=== PATIENT | male | born 1940 | race Caucasian/White ===

== ENCOUNTER 2023-12-18 08:04 | Outpatient (OUT) | payer MEDICARE, OTHER, SELFPAY ==
--- NOTE | 2023-12-18 08:08 | US_ITS ---
The [address] [address] Patient Name: TOMAS REYNOSO MRN: [id number] date: 1940 Sex: M Assigned Patient Location: US Current Patient Location: Accession/Order Number: [id number] Exam Date: 12/18/2023 08:30 Report Date: 12/18/2023 09:14 At the request of: LESLEE KRUSE Procedure: US renal BI EXAMINATION: US renal BI HISTORY: Microscopic Hematuria R31.29, Feeling Of Incomplete Bladder COMPARISON: No relevant comparison available. TECHNIQUE: Ultrasound examination was performed of the bladder. FINDINGS: Right Kidney: Normal in size, contour and cortical echotexture. The cortex measures 1.4 cm. No solid cortical mass, hydronephrosis or obstructing nephrolithiasis Height: 4.8 cm Length: 11.1 cm Width: 4.4 cm Left Kidney: Normal in size, contour and cortical echotexture. The cortex measures 1.5 cm. No solid cortical mass, hydronephrosis or obstructing nephrolithiasis. Area of anechoic echogenicity in the lower pole measuring 1.8 cm, parapelvic cyst is favored Height: 5.8 cm Length: 10.6 cm Width: 5.2 cm Urinary bladder is normal measuring 7.6 x 5.8 x 6.2 cm a volume of 194 mL Post void imaging was not performed US/US renal BI IMPRESSION: No explanation for the patient's hematuria Electronically authenticated by: JUSTUS MARLEY Date: 12/18/2023 09:14
== END 2023-12-18 08:05 | disposition home or self-care (01) ==
LOC: US 08:04
PROVIDERS: Visit Provider Urology
DX: R31.29 Other microscopic hematuria (principal); R39.14 Feeling of incomplete bladder emptying
CPT/HCPCS: 76775

== ENCOUNTER 2024-01-19 07:00 | Day surgery (SDC) | payer MEDICARE, OTHER, SELFPAY ==
--- OUTSIDE RECORDS SUMMARY | 2024-01-17 11:19 | XMS_ITS | CCD ---
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 Name Role Phone BERENGER, ENEDELIA G Unavailable Unavailable BERENGER, ENEDELIA G Unavailable Unavailable BERENGER, ENEDELIA G Unavailable Unavailable BERENGER, ENEDELIA G Unavailable Unavailable BERENGER, ENEDELIA G Unavailable Unavailable HEGEMIER, MICAELA (PA) Unavailable Unavailable BERENGER, ENEDELIA G Unavailable Unavailable HEGEMIER, MICAELA (PA) Unavailable Unavailable MISC, DR HARRINGTON Attending Unavailable MISC, DR HARRINGTON Admitting Unavailable MISC, DR HARRINGTON Consulting Unavailable ROSSVETLANA MUELLER Consulting Unavailable SVETLANA DIMAS Attending Unavailable SVETLANA DIMAS Admitting Unavailable DANAE, LEONARDA G Primary Care Physician Unavailab CARMITA Strong Attending Unavailable DANAE, LEONARDA G Referring Unavailable DANAE, LEONARDA G Attending Unavailable NICK MCCOY Attending Unavailable Danae DO, Leonarda G Primary Care Provider [phone] DEMARCO REBOLLEDO. Attending Unavailable BOWEN GARAY Referring Unavailable DANAE, LEONARDA G Primary Care Unavailable ANUSHA HDEZ Attending Unavailable ANUSHA HDEZ Referring Unavailable DAANE, LEONARDA G Primary Care Unavailable ANUSHA HDEZ Attending Unavailable DEMARCO REBOLLEDO Referring Unavailable DANAE, LEONARDA G Primary Care Unavailable DANAE, LEONARDA Primary Care Unavailable Piter KRUSE Attending Unavailable DANAE, LEONARDA Primary Care Unavailable Piter KRUSE Attending Unavailable Piter KRUSE Attending Unavailable DANAE, LEONARDA Primary Care Unavailable Allergies Allergy Classification Reported Allergen(s) Allergy Type Date of Onset Reaction(s) Facility (4 sources) Dust; Translations: [Dust] Drug allergy Unknown (qualifier value) [facility] Jus (4 sources) Seasonal allergy; Translations: [Seasonal] Drug allergy Sneezing (finding) [facility] Cheri (7 sources) atorvastatin; Translations: [ATORVASTATIN] Drug Allergy 10-30-2021 [facility] Medications Current Medications Medication Drug Class(es) Dates Sig (Normalized) Sig (Original) 8 hr acetaminophen 650 mg extended release oral tablet (8 sources) Start: 02-19-2021 take 1 mg by mouth every eight hours Tylenol 8 Hour Caplet 650 mg oral tablet, extended release mg tab(s), Oral, q8hr, Refills(s) 0 Start Date: 02/19/21 Status: Ordered acetaminophen 325 mg / HYDROcodone bitartrate 7.5 mg oral tablet (5 sources) Opioid Agonist Start: 02-26-2022 take 1 tablet by mouth once Locust 325 mg-7.5 mg oral tablet 1 tab(s), Oral, Once, 1 tab(s), Refill(s) 0, Take 1 hour prior to procedure, [facility], 180, cm, 01/29/22 12:53:00 EST, Height/Length Dosing, 95, kg, 12/31/21 13:10:00 EST, Weight Dosing Start Date: 02/26/22 Status: Ordered [id number] 200 actuat albuterol 0.09 mg/actuat metered dose inhaler (5 sources) beta2-Adrenergic Agonist Start: 12-18-2023 take 2 puff(s) by inhalation every six hours as needed for wheezing albuterol (PROVENTIL HFA;VENTOLIN HFA) 90 mcg/actuation inhaler Indications: SOB (shortness of breath) Inhale 2 puffs every 6 (six) hours as needed for wheezing. 18 g 11 12/18/2023 Active Start: 06-03-2023 End: 12-18-2023 albuterol (PROVENTIL,VENTOLI N) nebulizer solution 2.5 mg ascorbic acid 250 mg chewable tablet (4 sources) Vitamin C ascorbic acid, v itamin C, 250 mg tablet,chewable Chew and swallow. 0 Active aspirin 81 mg delayed release oral tablet (4 sources) Platelet Aggregation Inhibitor, Nonsteroidal Anti-inflammatory Drug take 1 tablet by mouth in the morning aspirin 81 mg Take 1 tablet (81 mg total) by mouth in the morning. 30 tablet 11 Active cholecalciferol 0.125 mg oral capsule (4 sources) Vitamin D take 1 capsule by mouth in the morning cholecalciferol, vitamin D3, (VITAMIN D3) 5,000 units capsule Take 1 capsule (5,000 Units total) by mouth in the morning. 0 Active doxycycline hyclate 100 mg oral tablet (3 sources) Tetracycline-class Drug Start: End: 022 take 1 tablet by mouth twice daily doxycycline hyclate 100 mg Tab 100 mg = 1 tab(s), Oral, BID, X 14 day(s), # 28 tab(s), Refills(s) 0, Pharmacy: [facility], 180, cm, 04/19/22 11:19:00 EDT, Height/Length Dosing, 95, kg, 04/19/22 11:18:00 EDT, Weight Dosing Start Date: 05/23/22 Stop Date: 06/06/22 Status: Ordered Start: 04-19-2022 take 1 capsule by mo [facility] twice daily doxycycline hyclate 100 mg Cap 100 mg = 1 cap(s), Oral, BID, # 28 cap(s), Refills(s) 0, Pharmacy: [facility], 180, cm, 04/19/22 11:19:00 EDT, Height/Length Dosing, 95, kg, 04/19/22 11:18:00 EDT, Weight Dosing Start Date: 04/19/22 Status: Ordered finasteride 5 mg oral tablet (5 sources) 5-alpha Reductase Inhibitor Start: 04-11-2022 take 1 tablet by mouth once daily finasteride 5 mg Tab 5 mg = 1 tab(s), Oral, Daily, # 90 tab(s), Refills(s) 3, Pharmacy: [facility], 180, cm, 03/14/22 13:53:00 EDT, Height/Length Dosing, 95, kg, 12/31/21 13:10:00 EST, Weight Dosing Start Date: 04/11/22 Status: Ordered Start: 03-12-2022 take 1 tablet by chet th once daily finasteride 5 mg Tab 5 mg = 1 tab(s), Oral, Daily, # 90 tab(s), Refills(s) 3, Pharmacy: [facility], 180, cm, 01/29/22 12:53:00 EST, Height/Length Dosing, 95, kg, 12/31/21 13:10:00 EST, Weight Dosing Start Date: 03/12/22 Status: Ordered 30 actuat fluticasone furoate 0.1 mg/actuat / umeclidinium 0.0625 mg/actuat / vilanterol 0.025 mg/actuat dry powder inhaler (1 source) Anticholinergic, Corticosteroid, beta2-Adrenergic Agonist Start: 12-18-2023 take 1 puff(s) by inhalation once daily vbwgtczijke-fkdiqonde-pxcoytfk (TRELEGY ELLIPTA) 100-62.5-25 mcg blister with device Indications: SOB (shortness of breath) Inhale 1 puff once daily. 28 each 1 12/18/2023 Active folic acid 1 mg oral tablet (12 sources) Start: 09-08-2019 take 1 tablet by mouth in the morning folic acid (FOLVITE) 1 mg tablet Take 1 tablet (1,000 mcg total) by mouth in the morning. 5 09/08/2019 Active hydroxychloroqu ine sulfate 200 mg oral tablet (6 sources) Antimalarial, Antirheumatic Agent Start: 12-09-2022 hydroxychloroquine 200 mg Ta b Refills(s) 0 Start Date: 12/09/22 Status: Ordered 24 hr isosorbide mononitrate 30 mg extended release oral tablet (6 sources) Nitrate Vasodilator Start: 12-09-2022 take 1 tablet by mouth once daily isosorbide mononitrate (IMDUR) 30 mg 24 hr tablet Take 1 tablet (30 mg total) by mouth daily. 90 tablet 0 10/28/2023 Active levothyroxine sodium 0.075 mg oral tablet (12 sources) l-Thyroxine Start: 02-19-2021 take 1 tablet by mouth once daily levothyroxine 75 mcg (0.075 mg) Tab mcg tab(s), Oral, Daily, Refills(s) 0 Start Date: 02/19/21 Status: Ordered Start: 03-29-2021 take 1 tablet by chet th once daily levothyroxine 75 mcg (0.075 mg) Tab mcg tab(s), Oral, Daily, Refills(s) 0 Start Date: 02/19/21 Status: Ordered Start: 08-05-2017 take 1 tablet by chet th in the morning levothyroxine (SYNTHROID, LEVOTHROID) 75 MCG tablet Take 1 tablet (75 mcg total) by mouth in the morning. 0 08/05/2017 Active Claritin (8 sources) Start: 02-19-2021 Claritin Daily, Refills(s) 0 Start Date: 02/19/21 Status: Ordered methotrexate 2.5 mg oral tablet (8 sources) Folate Analog Metabolic Inhibitor Start: 02-19-2021 methotrexate 2.5 mg Tab 2.5 mg = 1 tab(s), Oral, q7day, # 4 tab(s), Refills(s) 0 Start Date: 02/19/21 Status: Ordered 24 hr metoprolol succinate 25 mg extended release oral tablet (6 sources) beta-Adrenergic Gosia Start: 04-29-2023 take 1 tablet by mouth every twenty-four hours in the morning metoprolol succinate XL (TOPROL XL) 25 mg 24 hr tablet Indications: Atherosclerosis of [place] coronary artery of [place] heart without angina pectoris TAKE 1 TABLET BY MOUTH IN THE MORNING 90 tablet 3 04/29/2023 Active Start: 12-09-2022 take 1 mg by mouth once daily metoprolol 25 mg ER Tab mg tab(s), Oral, Daily, Refills(s) 0 Start Date: 12/09/22 Status: Ordered 24 hr mirabegron 25 mg extended release oral tablet (5 sources) beta3-Adrenergic Agonist Start: 12-09-2022 take 1 tablet by mouth every twenty-four hours in the morning, then take 1 tablet by mouth once daily MYRBETRIQ 25 mg tablet extended release 24 hr Take 1 tablet (25 mg total) by mouth in the morning. TAKE 1 TABLET BY MOUTH ONCE DAILY FOR 30 DAYS. 0 12/09/2022 Active Start: 12-09-2022 End: 05-08-2023 take 1 tablet by mouth once daily Myrbetriq 25 mg oral tablet, extended release 25 mg = 1 tab(s), Oral, Daily, X 30 day(s), # 30 tab(s), Refills(s) 4, Pharmacy: [facility], 180, cm, 12/09/22 11:37:00 EST, Height/Length Dosing, 102, kg, 12/09/22 11:37:00 EST, Weight Dosing Start Date: 12/09/22 Stop Date: 05/08/23 Status: Ordered montelukast 10 mg oral tablet (12 sources) Leukotriene Receptor Antagonist Start: 02-19-2021 take 1 mg by mouth once daily montelukast 10 mg Tab mg tab(s), Oral, Daily, Refills(s) 0 Start Date: 02/19/21 Status: Ordered omeprazole 40 mg delayed release oral capsule (9 sources) Proton Pump Inhibitor Start: 02-19-2021 take 1 mg by mouth once daily omeprazole 40 mg Cap-DR mg cap(s), Oral, Daily, Refills(s) 0 Start Date: 02/19/21 Status: Ordered take 1 capsule by mouth twice da jared omeprazole (PriLOSEC) 20 mg capsule Take 1 capsule (20 mg total) by mouth 2 (two) times daily at 0800 and 1500. 0 Active omeprazole 40 mg Cap-DR (3 sources) Start: 02-19-2021 take 1 mg by mouth once daily omeprazole 40 mg Cap-DR mg cap(s), Oral, Daily, Refills(s) 0 Start Date: 02/19/21 Status: Ordered predniSONE 5 mg oral tablet (8 sources) Start: 02-19-2021 take 1 mg by mouth once daily predniSONE 5 mg Tab mg tab(s), Oral, Daily, Refills(s) 0 Start Date: 02/19/21 Status: Ordered rosuvastatin calcium 10 mg oral tablet (6 sources) HMG-CoA Reductase Inhibitor Start: 12-09-2022 take 1 tablet by mouth in the morning rosuvastatin (CRESTOR) 10 mg tablet Indications: Hyperlipidemia, unspecified hyperlipidemia type TAKE 1 TABLET BY MOUTH IN THE MORNING 90 tablet 3 04/29/2023 Active tamsulosin hydrochloride 0.4 mg oral capsule (12 sources) alpha-Adrenergic Gosia Start: 03-14-2023 End: 03-08-2024 take 1 capsule by mouth twice daily Flomax 0.4 mg Cap 0.4 mg = 1 cap(s), Oral, BID, X 90 day(s), # 180 cap(s), Refills(s) 3, Pharmacy: [facility], 180, cm, 03/14/23 9:03:00 EDT, Height/Length Dosing, 102, kg, 03/14/23 9:03:00 EDT, Weight Dosing Start Date: 03/14/23 Stop Date: 03/08/24 Status: Ordered Start: 04-11-2022 take 1 capsule by mo uth twice daily Flomax 0.4 mg Cap 0.4 mg = 1 cap(s), Oral, BID, # 180 cap(s), Refills(s) 3, Pharmacy: [facility], 180, cm, 03/14/22 13:53:00 EDT, Height/Length Dosing, 95, kg, 12/31/21 13:10:00 EST, Weight Dosing Start Date: 04/11/22 Status: Ordered Start: 02-26-2022 take 1 capsule by mo uth twice daily Flomax 0.4 mg Cap 0.4 mg = 1 cap(s), Oral, BID, # 180 cap(s), Refills(s) 3, Pharmacy: [facility], 180, cm, 01/29/22 12:53:00 EST, Height/Length Dosing, 95, kg, 12/31/21 13:10:00 EST, Weight Dosing Start Date: 02/26/22 Status: Ordered Start: 02-18-2020 take 1 capsule by mo uth once daily tamsulosin (FLOMAX) 0.4 mg capsule Take 1 capsule (0.4 mg total) by mouth nightly. 30 capsule 11 02/18/2020 Active Vitamin C 1000 mg oral tablet (8 sources) Start: 02-19-2021 take 1 mg by mouth once daily Vitamin C 1000 mg oral tablet mg tab(s), Oral, Daily, Refills(s) 0 Start Date: 02/19/21 Status: Ordered Vitamin D3 (8 sources) Start: 02-19-2021 Vitamin D3 Ref ills(s) 0 Start Date: 02/19/21 Status: Ordered zinc gluconate 50 mg oral tablet (8 sources) Start: 02-19-2021 zinc gluconate 50 mg oral tablet Refills(s) 0 Start Date: 02/19/21 Status: Ordered Completed/Discontinued Medications Medication Drug Class(es) Dates Sig (Normalized) Sig (Original) ciprofloxacin 500 mg oral tablet (1 source) Quinolone Antimicrobial Start: 12-08-2023 take 1 tablet by mouth once daily Cipro 500 mg Tab 500 mg = 1 tab(s), Oral, Daily, take one tab day before procedure and one tab after procedure, # 2 tab(s), Refills(s) 0, Pharmacy: [facility], 180, cm, 12/08/23 15:20:00 EST, Height/Length Dosing, 100, kg, 12/08/23 15:20:00 EST, Weight Dosing Start Date: 12/08/23 Status: Ordered MULTIVIT WITH MINERALS/LUTEIN (MULTIVITAMIN 50 PLUS ORAL) (4 sources) End: 12-18-2023 MULTIVIT WITH MINERALS/LUTEIN (MULTIVITAMIN 50 PLUS ORAL) Take by mouth. 0 12/18/2023 Discontinued MULTIVIT WITH NE NERALS/LUTEIN (MULTIVITAMIN 50 PLUS ORAL) Take by mouth. 0 Active Problems Active Problems Problem Classification Problem Date Documented Date Episodic/Chronic Abdominal pain (5 sources) Left lower quadrant pain; Translations: [Left lower quadrant pain] Onset: 04-19-2022 Episodic Aortic; peripheral; and visceral artery aneurysms (5 sources) Aneurysm of ascending aorta; Translations: [Aneurysm of ascending aorta without rupture (CMS-HCC)] Onset: 12-05-2022 11-26-2023 Chronic Chronic obstructive pulmonary disease and bronchiectasis (8 sources) Pulmonary emphysema 02-19-2021 Chronic Coronary atherosclerosis and other heart disease (4 sources) Coronary arteriosclerosis; Translations: [Atherosclerotic heart disease of [place] coronary artery without angina pectoris] Onset: 10-24-2022 12-18-2022 Chronic Disorders of lipid metabolism (12 sources) Hypercholesterolemia; Translations: [Mixed hyperlipidemia] Onset: 01-07-2023 02-19-2021 Chronic Essential hypertension (4 sources) Essential hypertension; Translations: [Essential (primary) hypertension] Onset: 01-07-2023 01-07-2023 Chronic Hyperplasia of prostate (16 sources) Benign prostatic hypertrophy with outflow obstruction; Translations: [Benign prostatic hyperplasia with lower urinary tract symptoms] Onset: 02-18-2020 12-31-2021 Chronic Inflammatory conditions of male genital organs (4 sources) Prostatitis; Translations: [Inflammatory disease of prostate, unspecified] Onset: 04-19-2022 Episodic Osteoarthritis (8 sources) Arthritis 02-19-2021 Chronic Other acquired deformities (1 source) Scoliosis, unspecified; Translations: [Scoliosis, unspecified] Onset: 06-20-2017 Chronic Other diseases of bladder and urethra (1 source) Overactive bladder 03-14-2023 Chronic Other diseases of kidney and ureters (2 sources) Urinary tract obstruction; Translations: [Other obstructive and reflux uropathy] Onset: 03-19-2022 Episodic Other lower respiratory disease (1 source) Interstitial pulmonary disease, unspecified; Translations: [Interstitial pulmonary disease, unspecified] Onset: 01-03-2022 Chronic Other lower respiratory disease (2 sources) Dyspnea; Translations: [Shortness of breath] 11-28-2023 Episodic Other lower respiratory disease (1 source) Shortness of breath; Translations: [Shortness of breath] Onset: 12-18-2023 Episodic Other lower respiratory disease (1 source) Shortness of breath Onset: 12-18-2023 Episodic Other male genital disorders (2 sources) Male erectile dysfunction, unspecified; Translations: [Erectile dysfunction] Onset: 12-08-2023 Chronic Other nervous system disorders (1 source) Other chronic pain; Translations: [Other chronic pain] Onset: 04-30-2017 Chronic Other screening for suspected conditions (not mental disorders or infectious disease) (14 sources) Patient encounter status; Translations: [Encounter for screening for malignant neoplasm of prostate] Onset: 02-18-2020 Resolved: 01-07-2023 02-18-2020 Episodic Other skin disorders (2 sources) Skin lesion 08-18-2022 Episodic Residual codes; unclassified (5 sources) Obstructive sleep apnea syndrome; Translations: [Obstructive sleep apnea (adult) (pediatric)] Onset: 01-03-2022 01-03-2022 Chronic Residual codes; unclassified (1 source) Obstructive sleep apnea (adult) (pediatric); Translations: [Obstructive sleep apnea (adult) (pediatric)] Onset: 01-03-2022 Chronic Thyroid disorders (8 sources) Hyperthyroidism 02-19-2021 Chronic Unclassified (3 sources) CONTACT W/AND (SUSP) EXPOS COVID-19; Translations: [CONTACT W/AND (SUSP) EXPOS COVID-19] Onset: 12-24-2021 Unclassified (8 sources) Finding of sensation of bladder 12-31-2021 Unclassified (1 source) Aneurysm of the ascending aorta, without rupture; Translations: [Aneurysm of the ascending aorta, without rupture] Onset: 12-05-2022 Past or Other Problems Problem Classification Problem Date Documented Da te Episodic/Chronic Abdominal hernia (4 sources) Hiatal hernia; Translations: [Diaphragmatic hernia without obstruction or gangrene] Onset: 12-05-2022 12-05-2022 Episodic Genitourinary symptoms and ill-defined conditions (13 sources) Nocturia; Translations: [Nocturia] Onset: 03-31-2020 Episodic Other lower respiratory disease (5 sources) Interstitial lung disease; Translations: [Interstitial pulmonary disease, unspecified] Onset: 01-03-2022 Resolved: 12-18-2023 01-03-2022 Chronic Other lower respiratory disease (4 sources) Dyspnea on exertion; Translations: [Other forms of dyspnea] Onset: 07-11-2022 07-11-2022 Episodic Spondylosis; intervertebral disc disorders; other back problems (1 source) Low back pain; Translations: [Low back pain] Onset: 04-30-2017 Episodic Unclassified (1 source) CONTACT W/AND (SUSP) EXPOS COVID-19; Translations: [CONTACT W/AND (SUSP) EXPOS COVID-19] Onset: 12-20-2021 Results Test Name Value Interpretation Reference Range Facility CBC (INCLUDES DIFF/PLT)on Basophils (Bld) [#/Vol] 0.079 10*3/uL Normal 0-200 [facility] Comment on above: Performed By: #### [id number], [id number] #### [facility] [address] [place] [phone] Percher: Preston E Cotes Basophils/100 WBC (Bld) 1.1 % Normal [facility] Comment on above: Performed By: #### [id number], [id number] #### [facility] [address] [place] [id number] Percher: Preston E Cotes Eosinophils (Bld) [#/Vol] 0.266 10*3/uL Normal 15-500 [facility] Comment on above: Performed By: #### 7861, 78446 #### [facility] [address] Percher: Preston E Cotes Eosinophils/100 WBC (Bld) 3.7 % Normal [facility] Comment on above: Performed By: #### [id number], 56536 #### [facility] [address] Percher: Preston E Cotes Erythrocyte distribution width (RBC) [Ratio] 13.0 % Normal 11.0-15.0 [facility] Comment on above: Performed By: #### [id number], 70951 #### [facility] [place] [address] Percher: Preston E Cotes Hematocrit (Bld) [Volume fraction] 44.3 % Normal 38.5-50.0 [facility] Comment on above: Performed By: #### [id number], 16174 #### [facility] [place] [address] Percher: Preston E Cotes Hemoglobin (Bld) [Mass/Vol] 14.8 g/dL Normal 13.2-17.1 [facility] Comment on above: Performed By: #### 6399, 07357 #### [facility] [place] [address] Percher: Preston E Cotes Lymphocytes (Bld) [#/Vol] 1.519 10*3/uL Normal 850-3900 [facility] Comment on above: Performed By: #### [id number], 59221 #### [facility] [address] Percher: Preston E Cotes Lymphocytes/100 WBC (Bld) 21.1 % Normal [facility] Comment on above: Performed By: #### [id number], 96379 #### [facility] [place] [address] Percher: Preston E Cotes MCH (RBC) [Entitic mass] 31.3 pg Normal 27.0-33.0 [facility] Comment on above: Performed By: #### [id number], 31210 #### [facility] [address] Percher: Prestonlance Bishopes MCHC (RBC) [Mass/Vol] 33.4 g/dL Normal 32.0-36.0 [facility] Comment on above: Performed By: #### 6399, 47760 #### [facility] [place] [address] Percher: Prestonlance Bishopes MCV (RBC) [Entitic vol] 93.7 fL Normal 80.0-100.0 [facility] Comment on above: Performed By: #### 6399, 25740 #### [facility] [place] [address] Percher: Preston E Cotes Monocytes (Bld) [#/Vol] 0.662 10*3/uL Normal 200-950 [facility] Comment on above: Performed By: #### 6399, 70792 #### [facility] [place] [address] Percher: Preston Bishopes Monocytes/100 WBC (Bld) 9.2 % Normal [facility] Comment on above: Performed By: #### [id number], 02551 #### [facility] [place] [address] Percher: Prestonlance Bishopes Neutrophils (Bld) [#/Vol] 4.673 10*3/uL Normal 3681-0317 [facility] Comment on above: Performed By: #### 6399, 23486 #### [facility] [place] [address] Percher: Preston E Cotes Neutrophils/100 WBC (Bld) 64.9 % Normal [facility] Comment on above: Performed By: #### [id number], 09492 #### [facility] [place] [address] Percher: Preston E Darioes Platelet mean volume (Bld) [Entitic vol] 9.8 fL Normal 7.5-12.5 [facility] Comment on above: Performed By: #### [id number], 22944 #### [facility] [address] [place], [place] [id number] Percher: Preston E Cotes Platelets (Bld) [#/Vol] 204 10*3/uL Normal 140-400 [facility] Comment on above: Performed By: #### [id number], 73959 #### [facility] [address] [place] [address] Percher: Preston E Cotes RBC (Bld) [#/Vol] 4.73 10*6/uL Normal 4.20-5.80 [facility] Comment on above: Performed By: #### [id number], 90976 #### [facility] [address] [place] [address] Percher: Preston E Cotes WBC (Bld) [#/Vol] 7.2 10*3/uL Normal 3.8-10.8 [facility] Comment on above: Performed By: #### [id number], 67309 #### [facility] [address] [place] [address] Percher: Preston Kidd COMPREHENSIVE METABOLIC PANE [facility] 01-01-2024 Albumin [Mass/Vol] 4.1 g/dL Normal 3.6-5.1 [facility] Comment on above: Performed By: #### [id number], 99695 #### [facility] [address] Percher: Preston Bishopes Albumin/Globulin [Mass ratio] 1.6 {ratio} Normal 1.0-2.5 [facility] Comment on above: Performed By: #### [id number], 89642 #### [facility] [address] [place], [place] [id number] Percher: Preston E Cotes ALP [Catalytic activity/Vol] 51 U/L Normal 35-144 [facility] Comment on above: Performed By: #### [id number], 84271 #### [facility] [address] [place], [place] [id number] Percher: Prestonlance Bishopes ALT [Catalytic activity/Vol] 14 U/L Normal 9-46 [facility] Comment on above: Performed By: #### 6399, 13790 #### [facility] [address] [place], [place] [id number] Percher: Preston E Cotes AST [Catalytic activity/Vol] 27 U/L Normal 10-35 [facility] Comment on above: Performed By: #### [id number], 17031 #### [facility]-[address] Percher: Preston E Cotes Bilirubin [Mass/Vol] 0.6 mg/dL Normal 0.2-1.2 [facility] Comment on above: Performed By: #### 6399, 40103 #### [facility] Percher: Preston E Cotes BUN/CREATININE RATIO SEE NOTE: Normal 6- [facility] Comment on above: Result Comment: Not Reported: BUN and Cr eatinine are within reference range. Performed By: #### 6 399, [id number] #### [facility] [address] [place], [place] [id number] Percher: Preston E Cotes Calcium [Mass/Vol] 9.1 mg/dL Normal 8.6-10.3 [facility] Comment on above: Performed By: #### [id number], 19186 #### [facility]-[address] Percher: Preston E Cotes Chloride [Moles/Vol] 106 mmol/L Normal 98-110 [facility] Comment on above: Performed By: #### [id number], 40726 #### [facility] [address] [place], [place] [id number] Percher: Preston E Cotes CO2 [Moles/Vol] 27 mmol/L Normal 20-32 [facility] Comment on above: Performed By: #### 6399, 96564 #### [facility] [address] [place], [place] [id number] Percher: Preston E Cotes Creatinine [Mass/Vol] 1.06 mg/dL Normal 0.70-1.22 [facility] Comment on above: Performed By: #### [id number], 14691 #### [facility] [address] [place] [address] Percher: Preston Lindsay Cotes GFR/1.73 sq M.predicted among non-blacks MDRD (S/P/Bld) [Vol rate/Area] 70 mL/min/{1.73_m2} Normal > OR = 60 [facility] Comment on above: Performed By: #### [id number], 23851 #### [facility] [address] [place] [address] Percher: Preston E Cotes Globulin (S) [Mass/Vol] 2.6 g/dL Normal 1.9-3.7 [facility] Comment on above: Performed By: #### 6399, 98643 #### [facility] [address] Percher: Preston E Cotes Glucose [Mass/Vol] 97 mg/dL Normal 65-99 [facility] Comment on above: Result Comment: Fasting reference interval Performed By: #### 6 399, 64365 #### [facility] [address] [place] [address] Percher: Preston E Cotes Potassium [Moles/Vol] 4.1 mmol/L Normal 3.5-5.3 [facility] Comment on above: Performed By: #### 6399, 32231 #### [facility] [address] [place] [address] Percher: Preston E Cotes Protein [Mass/Vol] 6.7 g/dL Normal 6.1-8.1 [facility] Comment on above: Performed By: #### 6399, 48195 #### [facility] [address] [place] [address] Percher: Preston E Cotes Sodium [Moles/Vol] 141 mmol/L Normal 135-146 [facility] Comment on above: Performed By: #### 6399, 73342 #### [facility] [address] [place] [address] Percher: Preston E Cotes Urea nitrogen [Mass/Vol] 22 mg/dL Normal 7-25 [facility] Comment on above: Performed By: #### 6399, 66642 #### [facility] [address] [place] [address] Percher: Preston Montoya Cotestefany SED RATE BY MODIFIED WESTERG RENon 01-01-2024 SED RATE BY MODIFIED WESTERGREN 13 mm/h Normal < OR = 20 [facility] Comment on above: Performed By: #### 6399, 22649 #### [facility] [address] [place] [address] Percher: Prestonnya Kidd Consent for Procedure/Surger yon 12-31-2023 Consent for Procedure/Surger y [id number] Normal [facility] RAD - Ultrasound Reporton RAD - Ultrasound Report [id number] Normal [facility] Ambulatory Visit Summaryon 0 12-08-2023 Ambulatory Visit Summary TOMAS REYNOSO :1940 Visit Date:12/08/2023 Ambulatory Visit Instructions Your Diagnosis BPH with urinary obstruction Microscopic hematuria Feeling of incomplete bladder emptying Urinary frequency Erectile dysfunction Tests Performed Urnls Dip Stick Auto w/o Microscopy POC 22399 Your Care Team Attending Physician - Piter KRUSE MD Primary Care Physician - LEONARDA FINK DO This Is Your Medications List ciprofloxacin (Cipro 500 mg Tab) tamsulosin (Flomax 0.4 mg Cap) Contact prescribing physician if questions or concerns acetaminophen (Tylenol 8 Hour Caplet 650 mg oral tablet, extended release) ascorbic acid (Vitamin C 1000 mg oral tablet) cholecalciferol (Vitamin D3) folic acid (folic acid 1 mg Tab) hydroxychloroquine (hydroxychloroquine 200 mg Tab) isosorbide mononitrate (isosorbide mononitrate 30 mg ER Tab) levothyroxine (levothyroxine 75 mcg (0.075 mg) Tab) loratadine (Claritin) methotrexate (methotrexate 2.5 mg Tab) metoprolol (metoprolol 25 mg ER Tab) montelukast (montelukast 10 mg Tab) omeprazole (omeprazole 40 mg Cap-) predniSONE (predniSONE 5 mg Tab) rosuvastatin (rosuvastatin 10 mg Tab) zinc gluconate (zinc gluconate 50 mg oral tablet) Procedures Performed Transurethral water vapor ablation of prostate (2021), Arthroplasty of knee, Colonoscopy, Repair of diaphragmatic hiatal hernia. Discharge Vitals Heart Rate (Peripheral) 70 Respiratory Rate 16 Blood Pressure 121/78 Height 180 cm Height 71 in Weight 100 kg Weight 220 lb BMI 30.86 What to do next You Need to Schedule the Following Appointments Follow Up with AIXA MARTIN, CHARLY Solis When: Comments: sched cysto Where: [facility] [address], [place] [address] [phone] Medications What How Much When Instructions New ciprofloxacin (Cipro 500 mg Tab) 1 Tablets By Mouth Every day take one tab day before procedure and one tab after procedure Pickup at [facility] Unchanged tamsulosin (Flomax 0.4 mg Cap) 1 Capsules By Mouth 2 times a day Duration: 90 Days Unchanged acetaminophen (Tylenol 8 Hour Caplet 650 mg oral tablet, extended release) By Mouth Every 8 hours Contact prescribing physician if questions or concerns Unchanged ascorbic acid (Vitamin C 1000 mg oral tablet) By Mouth Every day Contact prescribing physician if questions or concerns Unchanged cholecalciferol (Vitamin D3) Contact prescribing physician if questions or concerns Unchanged folic acid (folic acid 1 mg Tab) By Mouth Every day Contact prescribing physician if questions or concerns Unchanged hydroxychloroquine (hydroxychloroquine 200 mg Tab) Contact prescribing physician if questions or concerns Unchanged isosorbide mononitrate (isosorbide mononitrate 30 mg ER Tab) Contact prescribing physician if questions or concerns Unchanged levothyroxine (levothyroxine 75 mcg (0.075 mg) Tab) By Mouth Every day Contact prescribing physician if questions or concerns Unchanged loratadine (Claritin) Every day Contact prescribing physician if questions or concerns Unchanged methotrexate (methotrexate 2.5 mg Tab) 1 Tablets By Mouth Every 7 days Contact prescribing physician if questions or concerns Unchanged metoprolol (metoprolol 25 mg ER Tab) By Mouth Every day Contact prescribing physician if questions or concerns Unchanged montelukast (montelukast 10 mg Tab) By Mouth Every day Contact prescribing physician if questions or concerns Unchanged omeprazole (omeprazole 40 mg Cap-DR) By Mouth Every day Contact prescribing physician if questions or concerns Unchanged predniSONE (predniSONE 5 mg Tab) By Mouth Every day Contact prescribing physician if questions or concerns Unchanged rosuvastatin (rosuvastatin 10 mg Tab) Contact prescribing physician if questions or concerns Unchanged zinc gluconate (zinc gluconate 50 mg oral tablet) Contact prescribing physician if questions or concerns Pharmacy Information [facility]: [address] [place], [place] [id number] [phone] Test Results Urnls Dip Stick Auto w/o Microscopy POC 38969 (12/08/2023) Bilirubin Urine Dipstick - Negative Blood Urine Dipstick - Negative Glucose Urine Dipstick - Negative Ketones Urine Dipstick - Negative Leukocytes Urine Dipstick - Negative Nitrite Urine Dipstick - Negative Protein Urine Dipstick - Negative Specific [place] Urine Dipstick - 1.025 Urine Appearance Urine Dipstick - Clear Urine Color Urine Dipstick - Yellow Urobilinogen Urine Dipstick - Normal 0.2-1 EU/dl pH Urine Dipstick - 5.5 Allergies Dust (Unknown) Seasonal (Sneeze) Problems Ongoing - Any problem that you are currently receiving treatment for. 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 Normal [facility] Urology Office/Clinic Noteon 12-08-2023 Urology Office/Clinic Note Chief Complaint BPH with urinary obstruction HPI Staff 8 month f/u. Previous dx of BPH with urinary obstruction (Rezu 02/2022), feeling of incomplete bladder emptying, urinary frequency and ED. Continues use of Tamsulosin 0.4mg BID. Dysuria: no Incomplete bladder emptying: pt feels he may not empty first void of the morning but then he states it gets better throughout the day Hematuria: no Frequency: every few hours Urgency: very seldom Nocturia: 1x Stream: good stream Leaking: no Post void dripping: no Wearing pads/ Depends: no Urge incontinence: no Stress incontinence: no Incontinence without Sensory Awareness: no Abdominal pain: no Flank pain: no Sexual complaints: no History of Present Illness Tests reviewed: reviewed UA I have reviewed the previous health record information and history for this patient from Dr. Kruse. I have reviewed and verified the staff HPI to be accurate for this encounter. Review of Systems PHQ Score Initial Depression Screen Score: 0 SCORE ROS - Provider Constitutional: denies weight loss, denies hot flashes. Eyes: denies eye problems. Gastrointestinal: denies nausea, denies vomiting. Cardiovascular: denies chest pain or angina. Integumentary: no dryness Musculoskeletal: denies musculoskeletal symptoms. ENMT: denies otolaryngeal symptoms. Respiratory: no shortness of breath. Heme/Lymph: denies easy bleeding tendency, denies easy bruising tendency. Psychiatric: no confusion, no anxiety. Genitourinary: See HPI. Physical Exam Vitals & Measurements HR: 70(Peripheral) RR: 16 BP: 121/78 HT: 71 in HT: 180 cm WT: 100 kg WT: 220 lb BMI: 30.86 General Appearance: alert, no distress, well nourished, well developed male. Genitourinary: normal scrotum, normal testes, normal urethra, normal epididymis, normal vas deferens/spermatic cord. Flank Pain: none. Bladder: nonpalpable. Assessment/Plan 1. 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 Taking Tamsulosin 0.4mg bid, one in morning and one at night. States he voids 3-4x in one hour in the mornings but has decreased frequency as the day progresses. Continues to get up 1x/night. Discussed options, such as alternative medication vs taking both doses of Tamsulosin in the mornings vs both doses in the evening. Pt elects to try Tamsulosin in the mornings. -Take Tamsulosin 0.8mg qHS or qAM. warned about possible dizziness/light headedness. 2. Microscopic hematuria (R31.29: Other microscopic hematuria) States his PCP recently told him he had blood in his urine. UA today negative for blood and infection. Denies ever seeing any visible blood. Admits he has a hx of micro hematuria. Advised pt a cysto and renal echo will need done to evaluate bladder and ensure there is not any growth contributing to hematuria. -Will schedule cysto. The risks and benefits for cystoscopy have been discussed. The risks include bleeding, infection, and irritation of the bladder and urinary channel, among others. The patient, after being informed of procedural details and after questions have been answered, wishes to proceed. Full informed consent has been obtained. Will order Local anesthesia. 3. Feeling of incomplete bladder emptying (R39.14: Feeling of incomplete bladder emptying) PVR (cc): 12/31/21 - 45 07/22/22 - 77 08/16/22 - 87 03/14/23 - No PVR done today as pt has been emptying well. 4. Urinary frequency (R35.0: Frequency of micturition) Took Myrbetriq 25mg qd x 1 month but stopped due to no sx improvement. -See #1 5. Erectile dysfunction (N52.9: Male erectile dysfunction, unspecified) Pt takes nitro product, not a candidate for oral ED meds. Follow-up With When Contact Information AIXA MARTIN, Piter Colon, URL [facility] [address], [place] [address]- [phone] Additional Instructions: sched cysto Patient Education Cystoscopy Hematuria, Adult I, Yessi Tamez, personally scribed for Dr. Kruse on 12/08/2023 16:07:58. . Documentation recorded by the scribeYessi, accurately reflects the services(s) I performed and decisions made by me. Authenticated by Dr. Kruse on 12/08/2023 16:11:05. 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 Medications Claritin, Daily Flomax 0.4 mg Cap, 0.4 mg= 1 cap(s), Oral, BID, 3 refills folic acid 1 mg Tab, Oral, Daily hydroxychloroquine 200 mg Tab i (more content not included)... Normal [facility] Comment on above: Result Comment: Electronically Signed By : Piter KRUSE MD\.br\Date and Time Signed: 12/08/23 16:11 EST\.br\Electronically Co-Signed By: Yessi Tamez\.br\Date and Time Co-Signed: 12/08/23 16:08 EST CBC (INCLUDES DIFF/PLT)on Basophils (Bld) [#/Vol] 0.098 10*3/uL Normal 0-200 [facility] Comment on above: Performed By: #### 6399, 26301, 809 #### [facility] [address], [address] [place] [address] Percher: Jerry Reyes MD Basophils/100 WBC (Bld) 1.6 % Normal [facility] Comment on above: Performed By: #### 6399, 73297, 809 #### [facility] [place] [address] Percher: Jerry Reyes MD Eosinophils (Bld) [#/Vol] 0.293 10*3/uL Normal 15-500 [facility] Comment on above: Performed By: #### 6399, 43927, 809 #### [facility] [place] [address] Percher: Jerry Reyes MD Eosinophils/100 WBC (Bld) 4.8 % Normal [facility] Comment on above: Performed By: #### 6399, 93941, 809 #### [facility] [place] [address] Percher: Jerry Reyes MD Erythrocyte distribution width (RBC) [Ratio] 12.5 % Normal 11.0-15.0 [facility] Comment on above: Performed By: #### 6399, 89708, 809 #### [facility] [place] [address] Percher: Jerry Reyes MD Hematocrit (Bld) [Volume fraction] 43.4 % Normal 38.5-50.0 [facility] Comment on above: Performed By: #### 6399, 46807, 809 #### [facility] [address] [place] [address] Percher: Jerry Reyes MD Hemoglobin (Bld) [Mass/Vol] 14.3 g/dL Normal 13.2-17.1 [facility] Comment on above: Performed By: #### 6399, 13014, 809 #### [facility] [place] [address] Percher: Jerry Reyes MD Lymphocytes (Bld) [#/Vol] 1.153 10*3/uL Normal 850-3900 [facility] Comment on above: Performed By: #### 6399, 14228, 809 #### [facility] [place] [address] Percher: Jerry Reyes MD Lymphocytes/100 WBC (Bld) 18.9 % Normal [facility] Comment on above: Performed By: #### 6399, 12296, 809 #### [facility] [place] [address] Percher: Jerry Reyes MD MCH (RBC) [Entitic mass] 31.2 pg Normal 27.0-33.0 [facility] Comment on above: Performed By: #### 6399, 43277, 809 #### [facility] [place] [address] Percher: Jerry Reyes MD MCHC (RBC) [Mass/Vol] 32.9 g/dL Normal 32.0-36.0 [facility] Comment on above: Performed By: #### 6399, 58242, 809 #### [facility] [place] [address] Percher: Jerry Reyes MD MCV (RBC) [Entitic vol] 94.6 fL Normal 80.0-100.0 [facility] Comment on above: Performed By: #### 6399, 72896, 809 #### [facility] [place] [address] Percher: Jerry Reyes MD Monocytes (Bld) [#/Vol] 0.488 10*3/uL Normal 200-950 [facility] Comment on above: Performed By: #### 6399, 57737, 809 #### [facility] [place] [address] Percher: Jerry Reyes MD Monocytes/100 WBC (Bld) 8.0 % Normal [facility] Comment on above: Performed By: #### 6399, 66595, 809 #### [facility] [place] [address] Percher: Jerry Reyes MD Neutrophils (Bld) [#/Vol] 4.069 10*3/uL Normal 6683-5133 [facility] Comment on above: Performed By: #### 6399, 06317, 809 #### [facility] [place] [address] Percher: Jerry Reyes MD Neutrophils/100 WBC (Bld) 66.7 % Normal [facility] Comment on above: Performed By: #### 6399, 34964, 809 #### [facility] [place] [address] Percher: Jerry Reyes MD Platelet mean volume (Bld) [Entitic vol] 9.4 fL Normal 7.5-12.5 [facility] Comment on above: Performed By: #### 6399, 41877, 809 #### [facility] [place] [address] Percher: Jerry Reyes MD Platelets (Bld) [#/Vol] 179 10*3/uL Normal 140-400 [facility] Comment on above: Performed By: #### 6399, 73790, 809 #### [facility] [place] [address] Percher: Jerry Reyes MD RBC (Bld) [#/Vol] 4.59 10*6/uL Normal 4.20-5.80 [facility] Comment on above: Performed By: #### 6399, 26424, 809 #### [facility] [place] [address] Percher: Jerry Reeys MD WBC (Bld) [#/Vol] 6.1 10*3/uL Normal 3.8-10.8 [facility] Comment on above: Performed By: #### 6399, 21212, 809 #### [facility] [place] [address] Percher: Jerry Reyes MD [facility]AB[facility] 08-02-2023 Albumin [Mass/Vol] 4.0 g/dL Normal 3.6-5.1 [facility] Comment on above: Performed By: #### 6399, 96107, 809 #### [facility] [place] [address] Percher: Jerry Reyes MD Albumin/Globulin [Mass ratio] 1.5 {ratio} Normal 1.0-2.5 [facility] Comment on above: Performed By: #### 6399, 53399, 809 #### [facility] [place] [address] Percher: Jerry Reyes MD ALP [Catalytic activity/Vol] 55 U/L Normal 35-144 [facility] Comment on above: Performed By: #### 6399, 45496, 809 #### [facility] [place] [address] Percher: Jerry Reyes MD ALT [Catalytic activity/Vol] 15 U/L Normal 9-46 [facility] Comment on above: Performed By: #### 6399, 67011, 809 #### [facility] [place] [address] Percher: Jerry Reyes MD AST [Catalytic activity/Vol] 26 U/L Normal 10-35 [facility] Comment on above: Performed By: #### 6399, 07963, 809 #### [facility] [address], [address] [place] [address] Percher: Jerry Reyes MD Bilirubin [Mass/Vol] 0.5 mg/dL Normal 0.2-1.2 [facility] Comment on above: Performed By: #### 6399, 36567, 809 #### [facility] [address], [address] [place] [address] Percher: Jerry Reyes MD BUN/CREATININE RATIO SEE NOTE: Normal 6-22 [facility] Comment on above: Result Comment: Not Reported: BUN and Cr eatinine are within reference range. Performed By: #### 6 399, 53220, 809 #### [facility] [address], [address] [place] [address] Percher: Jerry Reyes MD Calcium [Mass/Vol] 8.9 mg/dL Normal 8.6-10.3 [facility] Comment on above: Performed By: #### 6399, 13786, 809 #### [facility] [address], [address] [place] [address] Percher: Jerry Reyes MD Chloride [Moles/Vol] 106 mmol/L Normal 98-110 [facility] Comment on above: Performed By: #### 6399, 44586, 809 #### [facility] [address], [address] [place] [address] Percher: Jerry Reyes MD CO2 [Moles/Vol] 24 mmol/L Normal 20-32 [facility] Comment on above: Performed By: #### 6399, 81628, 809 #### [facility] [address], [address] [place] [address] Percher: Jerry Reyes MD Creatinine [Mass/Vol] 1.11 mg/dL Normal 0.70-1.22 [facility] Comment on above: Performed By: #### 6399, 21097, 809 #### [facility] [address], [address] [place] [address] Percher: Jerry Reyes MD GFR/1.73 sq M.predicted among non-blacks MDRD (S/P/Bld) [Vol rate/Area] 67 mL/min/{1.73_m2} Normal > OR = 60 [facility] Comment on above: Performed By: #### 6399, 04035, 809 #### [facility] [address], [address] [place] [address] Percher: Jerry Reyes MD Globulin (S) [Mass/Vol] 2.6 g/dL Normal 1.9-3.7 [facility] Comment on above: Performed By: #### 6399, 57799, 809 #### [facility] [address], [address] [place] [address] Percher: Jerry Reyes MD Glucose [Mass/Vol] 98 mg/dL Normal 65-99 [facility] Comment on above: Result Comment: Fasting reference interval Performed By: #### 6 399, 02737, 809 #### [facility] [address], [address] [place] [address] Percher: Jerry Reyes MD Potassium [Moles/Vol] 4.2 mmol/L Normal 3.5-5.3 [facility] Comment on above: Performed By: #### 6399, 44696, 809 #### [facility] [place] [address] Percher: Jerry Reyes MD Protein [Mass/Vol] 6.6 g/dL Normal 6.1-8.1 [facility] Comment on above: Performed By: #### 6399, 89141, 809 #### [facility] [place] [address] Percher: Jerry Reyes MD Sodium [Moles/Vol] 140 mmol/L Normal 135-146 [facility] Comment on above: Performed By: #### 6399, 38264, 809 #### [facility] [place] [address] Percher: Jerry Reyes MD Urea nitrogen [Mass/Vol] 20 mg/dL Normal 7-25 [facility] Comment on above: Performed By: #### 6399, 21170, 809 #### [facility] [address] [place] [address], [address] Percher: Jerry Reyes MD SED RATE BY MODIFIED WESTERG RENon 08-02-2023 SED RATE BY MODIFIED WESTERGREN 14 mm/h Normal < OR = 20 [facility] Comment on above: Performed By: #### 6399, 39775, 809 #### [facility] [address] [place] [address], [address] [place] [id number] Percher: Jerry Reyes MD CBC (INCLUDES DIFF/PLT)on Basophils (Bld) [#/Vol] 0.131 10*3/uL Normal 0-200 [facility] Comment on above: Performed By: #### 85879, 6399, 31090 ## ## [facility] [address] [place] [address] Percher: Preston E Cotes Basophils/100 WBC (Bld) 1.9 % Normal [facility] Comment on above: Performed By: #### 29999, 6399, 52454 ## ## [facility] [address] [place] [address] Percher: Preston E Cotes Eosinophils (Bld) [#/Vol] 0.352 10*3/uL Normal 15-500 [facility] Comment on above: Performed By: #### 18820, 6399, 38912 ## ## [facility] [address] [place] [address] Percher: Preston E Cotes Eosinophils/100 WBC (Bld) 5.1 % Normal [facility] Comment on above: Performed By: #### 74869, 6399, 78815 ## ## [facility] [address] [place] [address] Percher: Preston E Cotes Erythrocyte distribution width (RBC) [Ratio] 13.7 % Normal 11.0-15.0 [facility] Comment on above: Performed By: #### 68968, 6399, 61255 ## ## [facility] [address] [place], [place] [id number] Percher: Preston Bishopes Hematocrit (Bld) [Volume fraction] 41.9 % Normal 38.5-50.0 [facility] Comment on above: Performed By: #### 80215, 6399, 45976 ## ## [facility] [address] Percher: Prestonlance Bishopes Hemoglobin (Bld) [Mass/Vol] 14.1 g/dL Normal 13.2-17.1 [facility] Comment on above: Performed By: #### 75633, 6399, 88537 ## ## [facility] [address] Percher: Prestonlance Kidd Lymphocytes (Bld) [#/Vol] 1.283 10*3/uL Normal 850-3900 [facility] Comment on above: Performed By: #### 81736, 6399, 37619 ## ## [facility] [address] [place] [address] Percher: Preston Kidd Lymphocytes/100 WBC (Bld) 18.6 % Normal [facility] Comment on above: Performed By: #### 81068, 6399, 64983 ## ## [facility] [address] Percher: Preston Kidd MCH (RBC) [Entitic mass] 31.3 pg Normal 27.0-33.0 [facility] Comment on above: Performed By: #### 25077, 6399, 16430 ## ## [facility] [address] [place], [place] [id number] Percher: Prestonlance Kidd MCHC (RBC) [Mass/Vol] 33.7 g/dL Normal 32.0-36.0 [facility] Comment on above: Performed By: #### 85213, 6399, 66753 ## ## [facility] [address] Percher: Preston E Cotes MCV (RBC) [Entitic vol] 93.1 fL Normal 80.0-100.0 [facility] Comment on above: Performed By: #### 63865, 6399, 22313 ## ## [facility] Percher: Preston E Cotes Monocytes (Bld) [#/Vol] 0.69 10*3/uL Normal 200-950 [facility] Comment on above: Performed By: #### 76936, 6399, 66470 ## ## [facility] Percher: Preston E Cotes Monocytes/100 WBC (Bld) 10.0 % Normal [facility] Comment on above: Performed By: #### 12663, 6399, 19875 ## ## [facility] Percher: Preston E Cotes Neutrophils (Bld) [#/Vol] 4.444 10*3/uL Normal 5304-2699 [facility] Comment on above: Performed By: #### 68680, 6399, 05523 ## ## [facility] Percher: Preston E Cotes Neutrophils/100 WBC (Bld) 64.4 % Normal [facility] Comment on above: Performed By: #### 13775, 6399, 19055 ## ## [facility] Percher: Preston E Cotes Platelet mean volume (Bld) [Entitic vol] 9.5 fL Normal 7.5-12.5 [facility] Comment on above: Performed By: #### 65140, 6399, 06190 ## ## [facility] Percher: Preston E Cotes Platelets (Bld) [#/Vol] 183 10*3/uL Normal 140-400 [facility] Comment on above: Performed By: #### 87769, 6399, 47746 ## ## [facility] [address] [place], [place] [id number] Percher: Preston Kidd RBC (Bld) [#/Vol] 4.50 10*6/uL Normal 4.20-5.80 [facility] Comment on above: Performed By: #### 44382, 6399, 96035 ## ## [facility] Percher: Preston Kidd WBC (Bld) [#/Vol] 6.9 10*3/uL Normal 3.8-10.8 [facility] Comment on above: Performed By: #### 90971, 6399, 85936 ## ## [facility] [address] [place] [address] Percher: Preston Kidd COMPREHENSIVE METABOLIC PANE [facility] 04-22-2023 Albumin [Mass/Vol] 3.9 g/dL Normal 3.6-5.1 [facility] Comment on above: Performed By: #### 30207, 6399, 13239 ## ## [facility] [address] [place], [place] [id number] Percher: Preston Kidd Albumin/Globulin [Mass ratio] 1.6 {ratio} Normal 1.0-2.5 [facility] Comment on above: Performed By: #### 81642, 6399, 87026 ## ## [facility] Percher: Preston Kidd ALP [Catalytic activity/Vol] 53 U/L Normal 35-144 [facility] Comment on above: Performed By: #### 59739, 6399, 92126 ## ## [facility] [address] [place], [place] [id number] Percher: Preston Kidd ALT [Catalytic activity/Vol] 24 U/L Normal 9-46 [facility] Comment on above: Performed By: #### 19202, 6399, 15527 ## ## [facility] [address] [place], [place] [id number] Percher: Preston Kidd AST [Catalytic activity/Vol] 36 U/L High 10-35 [facility] Comment on above: Performed By: #### 50435, 6399, 28507 ## ## [facility] [address] [place], [place] [id number] Percher: Preston E Cotes Bilirubin [Mass/Vol] 0.6 mg/dL Normal 0.2-1.2 [facility] Comment on above: Performed By: #### 01349, 6399, 22626 ## ## [facility] [address] [place], [place] [id number] Percher: Preston E Cotes BUN/CREATININE RATIO NOT APPLICABLE Normal 6-22 [facility] Comment on above: Performed By: #### 82040, 6399, 50034 ## ## [facility] [address] Percher: Preston E Cotes Calcium [Mass/Vol] 9.0 mg/dL Normal 8.6-10.3 [facility] Comment on above: Performed By: #### 33687, 6399, 04762 ## ## [facility] [address] [place], [place] [id number] Percher: Preston E Cotes Chloride [Moles/Vol] 104 mmol/L Normal 98-110 [facility] Comment on above: Performed By: #### 30971, 6399, 40445 ## ## [facility] [address] [place], [place] [id number] Percher: Preston E Cotes CO2 [Moles/Vol] 27 mmol/L Normal 20-32 [facility] Comment on above: Performed By: #### 00046, 6399, 88230 ## ## [facility] [address] [place], [place] [id number] Percher: Preston E Cotes Creatinine [Mass/Vol] 1.05 mg/dL Normal 0.70-1.22 [facility] Comment on above: Performed By: #### 23326, 6399, 86760 ## ## [facility] [address] [place], [place] [id number] Percher: Preston E Cotes GFR/1.73 sq M.predicted among non-blacks MDRD (S/P/Bld) [Vol rate/Area] 71 mL/min/{1.73_m2} Normal > OR = 60 [facility] Comment on above: Result Comment: The eGFR is based on the CKD-EPI 2020 equation. To calculate the new eGFR from a previous Creatinine or Cystatin C result, go to https://www.kidney.org/professionals/ kdoqi/gfr%5Fcalculator Performed By: #### 2 9891, 6399, 85321 #### [facility] [address] [place], [place] [id number] Percher: Preston E Cotes Globulin (S) [Mass/Vol] 2.5 g/dL Normal 1.9-3.7 [facility] Comment on above: Performed By: #### 11450, 6399, 49517 ## ## [facility] [address] [place], [place] [id number] Percher: Preston E Cotes Glucose [Mass/Vol] 89 mg/dL Normal 65-99 [facility] Comment on above: Result Comment: Fasting reference interval Performed By: #### 2 9891, 6399, 33137 #### [facility] Percher: Preston E Cotes Potassium [Moles/Vol] 4.2 mmol/L Normal 3.5-5.3 [facility] Comment on above: Performed By: #### 84716, 6399, 52800 ## ## [facility] [address] [place], [place] [id number] Percher: Preston E Cotes Protein [Mass/Vol] 6.4 g/dL Normal 6.1-8.1 [facility] Comment on above: Performed By: #### 86156, 6399, 70000 ## ## [facility] [address] [place], [place] [id number] Percher: Preston E Cotes Sodium [Moles/Vol] 138 mmol/L Normal 135-146 [facility] Comment on above: Performed By: #### 98220, 6399, 67917 ## ## [facility] [address] [place], [place] [id number] Percher: Preston Kidd Urea nitrogen [Mass/Vol] 13 mg/dL Normal 7-25 [facility] Comment on above: Performed By: #### 76158, 6399, 55147 ## ## [facility] [address] [place] [phone] Percher: Preston Kidd SED RATE BY IZABELA IBARRAon 04-22-2023 COMMENT Normal [facility] Comment on above: Result Comment: Please be advised that t rapid response lab received your order for test code 809 - ESR, Automated. The automated ESR is not performed at this site[place] [address] and a manual ESR was performed. Billing has been changed as appropriate. Performed By: #### 2 9891, 6399, 53332 #### [facility] [address] [place] [phone] Percher: Preston Kidd SED RATE BY IZABELA GREGORY 9 mm/h Normal < OR = 20 [facility] Comment on above: Performed By: #### 28933, 6399, 12887 ## ## [facility] [address] [place] [phone] Percher: Preston Kidd Ambulatory Visit Summaryon 0 03-14-2023 Ambulatory Visit Summary ANGELES TOMAS M :1940 Visit Date:03/14/2023 Ambulatory Visit Instructions Your Diagnosis BPH with urinary obstruction Feeling of incomplete bladder emptying Urinary frequency Erectile dysfunction Tests Performed Urnls Dip Stick Auto w/o Microscopy POC [id number] Your Care Team Attending Physician - AIXA MARTIN, Piter Colon Primary Care Physician - LEONARDA FINK DO This Is Your Medications List tamsulosin (Flomax 0.4 mg Cap) Contact prescribing physician if questions or concerns acetaminophen (Tylenol 8 Hour Caplet 650 mg oral tablet, extended release) ascorbic acid (Vitamin C 1000 mg oral tablet) cholecalciferol (Vitamin D3) folic acid (folic acid 1 mg Tab) hydroxychloroquine (hydroxychloroquine 200 mg Tab) isosorbide mononitrate (isosorbide mononitrate 30 mg ER Tab) levothyroxine (levothyroxine 75 mcg (0.075 mg) Tab) loratadine (Claritin) methotrexate (methotrexate 2.5 mg Tab) metoprolol (metoprolol 25 mg ER Tab) montelukast (montelukast 10 mg Tab) omeprazole (omeprazole 40 mg Cap-DR) predniSONE (predniSONE 5 mg Tab) rosuvastatin (rosuvastatin 10 mg Tab) zinc gluconate (zinc gluconate 50 mg oral tablet) [Image Removed: STOP]Stop taking these medications mirabegron (Myrbetriq 25 mg oral tablet, extended release) Procedures Performed Transurethral water vapor ablation of prostate (2021), Arthroplasty of knee, Colonoscopy, Repair of diaphragmatic hiatal hernia. Discharge Vitals Heart Rate (Peripheral) 61 Respiratory Rate 16 Blood Pressure 121/72 Height 180 cm Height 71 in Weight 102 kg Weight 224.4 lb BMI 31.48 What to do next Scheduled Follow-Up Appointments Friday 8:30 AM EST With: AIXA MARTIN, Piter Colon Where: [facility] Urology Office/Clinic Noteon 03-14-2023 Urology Office/Clinic Note Chief Complaint feeling of incomplete bladder emptying HPI Staff 3 month f/u. Previous dx include BPH with urinary obstruction (Rezum 02/2022) and feeling of incomplete bladder emptying. Tamsulosin 0.4mg therapy BID. Pt stopped taking Myrbetriq after 1 month. He states that he was not noticing any difference so he quit taking it. Dysuria: no Incomplete bladder emptying: pt feels he is emptying better Hematuria: no Frequency: in the morning due to the amount of water he is drinking but then gets better throughout the day. Urgency: pt states every now and then but not often Nocturia: 1x Stream: no straining or intermittency Leaking: rare Post void dripping: yes Wearing pads/ Depends: no Urge incontinence: no Stress incontinence: no Incontinence without Sensory Awareness: no Abdominal pain: no Flank pain: no Sexual complaints: no History of Present Illness Tests reviewed: reviewed UA. I have reviewed the previous health record information and history for this patient from Dr. Kruse. I have reviewed and verified the staff HPI to be accurate for this encounter. There have been no associated fever, chills, flank pain, or blood in the urine. Denies any urinary infections since last encounter. Review of Systems PHQ Score Initial Depression Screen Score: 0 ROS - Provider Constitutional: denies weight loss, denies hot flashes. Eyes: denies eye problems. Gastrointestinal: denies nausea, denies vomiting. Cardiovascular: denies chest pain or angina. Integumentary: no dryness Musculoskeletal: denies musculoskeletal symptoms. ENMT: denies otolaryngeal symptoms. Respiratory: no shortness of breath. Heme/Lymph: denies easy bleeding tendency, denies easy bruising tendency. Psychiatric: no confusion, no anxiety. Genitourinary: See HPI. Physical Exam Vitals & Measurements HR: 61(Peripheral) RR: 16 BP: 121/72 HT: 71 in HT: 180 cm WT: 102 kg WT: 224.4 lb BMI: 31.48 General Appearance: alert, no distress, well nourished, well developed male. Genitourinary: normal scrotum, normal testes, normal urethra, normal epididymis, normal vas deferens/spermatic cord. Flank Pain: none. Bladder: nonpalpable. Assessment/Plan 1. BPH with urinary obstruction (N40.1: Benign prostatic hyperplasia with lower urinary tract symptoms) S/p Rezum 02/2022. UA today negative for blood and infection. voiding well overall. Taking Flomax 0.4 mg bid. Refill sent to [facility]. Has had a few episodes of urgency but usually makes it. Nocturia 1x/night. Follow up 8 mos or sooner if needed. Pt understands and agrees with plan. 2. Feeling of incomplete bladder emptying (R39.14: Feeling of incomplete bladder emptying) PVR (cc): 12/31/21 - 45 07/22/22 - 77 08/16/22 - 87 03/14/23 - PVR today low. Feels he is emptying better. 3. Urinary frequency (R35.0: Frequency of micturition) Started Myrbetriq 25 mg qd at prior OV. Took for 1 month then stopped because he did not notice a difference. 4. Erectile dysfunction (N52.9: Male erectile dysfunction, unspecified) Pt inquired about Cialis, he had tried this many years ago for ED. Pt takes nitro product, not a candidate for oral ED meds. Follow-up With When Contact Information Piter KRUSE MD, URL [facility] [address], [place] [address]- Additional Instructions: 8 mos Patient Education Benign Prostatic Hyperplasia I, Carla Garvin, personally scribed for Dr. Kruse on 03/14/2023 09:20:23. . Documentation recorded by the scribe, Carla Garvin, accurately reflects the services(s) I performed and decisions made by me. Authenticated by Dr. Kruse on 03/14/2023 09:22:48. 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 Medications Claritin, Daily Flomax 0.4 mg Cap, 0.4 mg= 1 cap(s), Oral, BID, 3 refills folic acid 1 mg Tab, Oral, Daily hydroxychloroquine 200 mg Tab isosorbide mononitrate 30 mg ER Tab levothyroxine 75 mcg (0.075 mg) Tab, Oral, Daily methotrexate 2.5 mg Tab, 2.5 mg= 1 tab(s), Oral, q7day metoprolol 25 mg ER Tab, Oral, Daily montelukast 10 mg Tab, Oral, Daily Myrbetriq 25 mg oral tablet, extended release, 25 mg= 1 tab(s), Oral, Daily, 4 refills, Not taking: Pt states that after taking this for 1 month he did not notice any difference so he stopped. omeprazole 40 mg Cap-DR, Oral, Daily predniSONE 5 mg Tab, Oral, Daily rosuvastatin 10 mg Tab Tylenol 8 Hour Caplet 650 mg oral tablet, extended release, Or (more content not included)... Normal [facility] Comment on above: Result Comment: Electronically Signed By : Piter KRUSE MD\.br\Date and Time Signed: 03/14/23 09:22 EDT\.br\Electronically Co-Signed By: Carla Garvin\.br\Date and Time Co-Signed: 03/14/23 09:20 EDT Patient Educationon 03-13-20 Patient Education Urology Benign Prostatic Hyperplasia Benign prostatic hyperplasia (BPH) is an enlarged prostate gland that is caused by the normal aging process. The prostate may get bigger as a man gets older. The condition is not caused by cancer. The prostate is a walnut-sized gland that is involved in the production of semen. It is located in front of the rectum and below the bladder. The bladder stores urine. The urethra carries stored urine out of the body. An enlarged prostate can press on the urethra. This can make it harder to pass urine. The buildup of urine in the bladder can cause infection. Back pressure and infection may progress to bladder damage and kidney (renal) failure. What are the causes? This condition is part of the normal aging process. However, not all men develop problems from this condition. If the prostate enlarges away from the urethra, urine flow will not be blocked. If it enlarges toward the urethra and compresses it, there will be problems passing urine. What increases the risk? This condition is more likely to develop in men older than 50 years. What are the signs or symptoms? Symptoms of this condition include: ? Getting up often during the night to urinate. ? Needing to urinate frequently during the day. ? Difficulty starting urine flow. ? Decrease in size and strength of your urine stream. ? Leaking (dribbling) after urinating. ? Inability to pass urine. This needs immediate treatment. ? Inability to completely empty your bladder. ? Pain when you pass urine. This is more common if there is also an infection. ? Urinary tract infection (UTI). How is this diagnosed? This condition is diagnosed based on your medical history, a physical exam, and your symptoms. Tests will also be done, such as: ? A post-void bladder scan. This measures any amount of urine that may remain in your bladder after you finish urinating. ? A digital rectal exam. In a rectal exam, your health care provider checks your prostate by putting a lubricated, gloved finger into your rectum to feel the back of your prostate gland. This exam detects the size of your gland and any abnormal lumps or growths. ? An exam of your urine (urinalysis). ? A prostate specific antigen (PSA) screening. This is a blood test used to screen for prostate cancer. ? An ultrasound. This test uses sound waves to electronically produce a picture of your prostate gland. Your health care provider may refer you to a specialist in kidney and prostate diseases (urologist). How is this treated? Once symptoms begin, your health care provider will monitor your condition (active surveillance or watchful waiting). Treatment for this condition will depend on the severity of your condition. Treatment may include: ? Observation and yearly exams. This may be the only treatment needed if your condition and symptoms are mild. ? Medicines to relieve your symptoms, including: ? Medicines to shrink the prostate. ? Medicines to relax the muscle of the prostate. ? Surgery in severe cases. Surgery may include: ? Prostatectomy. In this procedure, the prostate tissue is removed completely through an open incision or with a laparoscope or robotics. ? Transurethral resection of the prostate (TURP). In this procedure, a tool is inserted through the opening at the tip of the penis (urethra). It is used to cut away tissue of the inner core of the prostate. The pieces are removed through the same opening of the penis. This removes the blockage. ? Transurethral incision (TUIP). In this procedure, small cuts are made in the prostate. This lessens the prostate's pressure on the urethra. ? Transurethral microwave thermotherapy (TUMT). This procedure uses microwaves to create heat. The heat destroys and removes a small amount of prostate tissue. ? Transurethral needle ablation (TUNA). This procedure uses radio frequencies to destroy and remove a small amount of prostate tissue. ? Interstitial laser coagulation (ILC). This procedure uses a laser to destroy and remove a small amount of prostate tissue. ? Transurethral electrovaporization (TUVP). This procedure uses electrodes to destroy and remove a small amount of prostate tissue. ? Prostatic urethral lift. This procedure inserts an implant to push the lobes of the prostate away from the urethra. Follow these instructions at home: ? Take uogx-sey-wdqwpbl and prescription medicines only as told by your health care provider. ? Monitor your symptoms for any changes. Contact your health care provider with any changes. ? Avoid drinking large amounts of liquid before going to bed or out in public. ? Avoid or reduce how much caffeine or alcohol you drink. ? Give yourself time when you urinate. ? Keep all follow-up visits. This is important. Contact a health care provider if: ? You have unexplained back pain. ? Your symptoms do not get better with treatment. ? You develop side effects from the medicine (more content not included)... Normal [facility] XR Chest 2 Views*on 12-05-19 23 XR Chest 2 Views* FINDINGS: Comparison made with prior examination September 12, 2021. Diffuse interstitial prominence, greatest involvement within the bases. Mild thickening of the minor and major fissures. Upper lobe emphysema. No new parenchymal consolidation, pulmonary edema, or pleural effusion. Normal cardiac silhouette size. Right shoulder arthroplasty. IMPRESSION: Stable parenchymal findings consistent with upper lobe emphysema, basilar interstitial lung disease, minimal progression Report reported and signed by Vamshi Whatley on 12/05/2022 1456 Normal [facility] Specialist US Renal/Bladderon US Renal/Bladder HISTORY: Left lower quadrant pain FINDINGS: Right Vqxqwg19.0 x 5.5 x 5.7 cm Left Tqwsow13.8 x 4.7 x 5.5 cm Full bladder volume: 109 cc Post-void bladder volume: 11cc. Normal renal size, cortical volume and echotexture is present for this age. No collecting system dilatation or echogenic foci with posterior shadowing are noted. Bladder not fully distended at time of imaging however no stone formation or mass is suggested Both ureteral jets visualized. 11 cc post void residual. IMPRESSION: 1. Normal kidneys, no significant stone formation or evidence of obstruction. 2. No bladder stone, 11 cc post-void residual. Report reported and signed by Vamshi Whatley on 08/21/2022 0717 Normal [facility] XR Abdomen Single View (KUB) *on 08-20-2022 XR Abdomen Single View (KUB)* FINDINGS: Upper abdomen not included on this examination. Normal volume of colon stool, air-filled small and large bowel, no obstruction. No mass effect. Mid/distal lumbar arthritis, lumbosacral fusion. No distal ureteral or bladder stones. IMPRESSION: 1. No evidence of bowel obstruction 2. No distal ureteral or bladder stones Report reported and signed by Vamshi Whatley on 08/21/2022 0714 Normal [facility] Complete Blood Count with Au to Diffon 04-25-2022 Basophils (Bld) [#/Vol] 0.06 10*3/uL Normal 0.00-0.20 [facility] Specialist Comment on above: Performed By: #### ESR, CBCAD #### [facility] [address] [place], [place] [id number] Basophils/100 WBC (Bld) 0.8 % Normal [facility] Specialist Comment on above: Performed By: #### ESR, CBCAD #### [facility] [address] [place], [place] [id number] Eosinophils (Bld) [#/Vol] 0.13 10*3/uL Normal 0.02-0.50 [facility] Specialist Comment on above: Performed By: #### ESR, CBCAD #### [facility] [address] [place], [place] [id number] Eosinophils/100 WBC (Bld) 1.7 % Normal [facility] Specialist Comment on above: Performed By: #### ESR, CBCAD #### [facility] [address] [place], [place] [id number] Erythrocyte distribution width (RBC) [Ratio] 12.3 % Normal 11.0-15.0 [facility] Specialist Comment on above: Performed By: #### ESR, CBCAD #### [facility] [address], [place] [id number] Hematocrit (Bld) [Volume fraction] 44.5 % Normal 38.5-50.0 [facility] Specialist Comment on above: Performed By: #### ESR, CBCAD #### [facility] [address], [place] [id number] Hemoglobin (Bld) [Mass/Vol] 14.1 g/dL Normal 13.0-17.1 [facility] [employer] Supervisor Comment on above: Performed By: #### ESR, CBCAD #### [facility] [address], [place] [id number] Lymphocytes (Bld) [#/Vol] 1.1 10*3/uL Normal 0.9-3.9 [facility] Specialist Comment on above: Performed By: #### ESR, CBCAD #### [facility] [address], [place] [id number] Lymphocytes/100 WBC (Bld) 14.7 % Normal [facility] Specialist Comment on above: Performed By: #### ESR, CBCAD #### [facility] [address], [place] [id number] MCH (RBC) [Entitic mass] 30.7 pg Normal 27.0-33.0 [facility] Specialist Comment on above: Performed By: #### ESR, CBCAD #### [facility] [address], [place] [id number] MCHC (RBC) [Mass/Vol] 31.7 g/dL Low 32.0-36.0 [facility] Specialist Comment on above: Performed By: #### ESR, CBCAD #### [facility] [address], [place] [id number] MCV (RBC) [Entitic vol] 97 fL Normal 80-100 [facility] Specialist Comment on above: Performed By: #### ESR, CBCAD #### [facility] [address], [place] [id number] Monocytes (Bld) [#/Vol] 0.5 10*3/uL Normal 0.2-0.9 [facility] Specialist Comment on above: Performed By: #### ESR, CBCAD #### [facility] [address], [place] [id number] Monocytes/100 WBC (Bld) 6.1 % Normal [facility] Specialist Comment on above: Performed By: #### ESR, CBCAD #### [facility] [address], [place] [id number] Neutrophils (Bld) [#/Vol] 5.7 10*3/uL Normal 1.5-7.8 [facility] Specialist Comment on above: Performed By: #### ESR, CBCAD #### [facility] [address], [place] [id number] Neutrophils/100 WBC (Bld) 75.8 % Normal [facility] Specialist Comment on above: Performed By: #### ESR, CBCAD #### [facility] [address], [place] [id number] Platelet mean volume (Bld) [Entitic vol] 9.80 fL Normal 7.50-12.50 [facility] Specialist Comment on above: Performed By: #### ESR, CBCAD #### [facility] [address], [place] [id number] Platelets (Bld) [#/Vol] 233 10*3/uL Normal 140-400 [facility] [employer] Supervisor Comment on above: Performed By: #### ESR, CBCAD #### [facility] [address], [place] [id number] RBC (Bld) [#/Vol] 4.59 10*6/uL Normal 4.20-5.80 [facility] [employer] Supervisor Comment on above: Performed By: #### ESR, CBCAD #### [facility] [address], [place] [id number] RDW-SD 44.2 fL Normal 37.0-50.0 [facility] [employer] Supervisor Comment on above: Performed By: #### ESR, CBCAD #### [facility] [address], [place] [id number] WBC (Bld) [#/Vol] 7.5 10*3/uL Normal 3.8-11.0 [facility] [employer] Supervisor Comment on above: Performed By: #### ESR, CBCAD #### [facility] [address], [place] [id number] Comprehensive Metabolic Pane [facility] 04-25-2022 Albumin [Mass/Vol] 4.2 g/dL Normal 3.6-5.1 [facility] [employer] Supervisor Comment on above: Performed By: #### LIPD, TSH reflex FT4, CMP #### [facility] [address], [place] [id number] Albumin/Globulin [Mass ratio] 1.7 {ratio} Normal 1.0-2.5 [facility] [employer] Supervisor Comment on above: Performed By: #### LIPD, TSH reflex FT4, CMP #### [facility] [address], [place] [id number] ALP [Catalytic activity/Vol] 74 U/L Normal 40-129 [facility] [employer] Supervisor Comment on above: Performed By: #### LIPD, TSH reflex FT4, CMP #### [facility] [address] [place], [place] [id number] ALT [Catalytic activity/Vol] 27 U/L Normal 9-46 [facility] Laying Supervisor Comment on above: Result Comment: 10/24/2021 Female referen ce range changed. Performed By: #### L IPD, TSH reflex FT4, CMP #### [facility] [address] [place], [place] [id number] Anion gap [Moles/Vol] 18 mmol/L Normal 12-20 [facility] Specialist Comment on above: Result Comment: Effective 11/29/2019 refer ence range changed. Performed By: #### L IPD, TSH reflex FT4, CMP #### [facility] [address] [place], [place] [id number] AST [Catalytic activity/Vol] 27 U/L Normal 10-40 [facility] Specialist Comment on above: Performed By: #### LIPD, TSH reflex FT4, CMP #### [facility] [address] [place], [place] [id number] Bilirubin [Mass/Vol] 0.33 mg/dL Normal 0.30-1.20 [facility] Specialist Comment on above: Performed By: #### LIPD, TSH reflex FT4, CMP #### [facility] [address] [place], [place] [id number] BUN/CREA 21 Ratio Normal 6-22 [facility] Specialist Comment on above: Performed By: #### LIPD, TSH reflex FT4, CMP #### [facility] [address] [place], [place] [id number] Calcium [Mass/Vol] 9.3 mg/dL Normal 8.6-10.2 [facility] Specialist Comment on above: Performed By: #### LIPD, TSH reflex FT4, CMP #### [facility] [address] [place], [place] [id number] Chloride [Moles/Vol] 105 mmol/L Normal 98-107 [facility] [employer] Supervisor Comment on above: Performed By: #### LIPD, TSH reflex FT4, CMP #### [facility] [address] [place], [place] [id number] CO2 [Moles/Vol] 22 mmol/L Normal 20-31 [facility] Specialist Comment on above: Performed By: #### LIPD, TSH reflex FT4, CMP #### [facility] [address] [place], [place] [id number] Creatinine [Mass/Vol] 0.9 mg/dL Normal 0.7-1.4 [facility] [employer] Supervisor Comment on above: Performed By: #### LIPD, TSH reflex FT4, CMP #### [facility] [address] [place], [place] [id number] eGFRAA 95 mL/min/1.73m2 Normal >60 [facility] Specialist Comment on above: Performed By: #### LIPD, TSH reflex FT4, CMP #### [facility] [address] [place], [place] [id number] eGFRNAA 78 mL/min/1.73m2 Normal >60 [facility] [employer] Laying Supervisor Comment on above: Performed By: #### LIPD, TSH reflex FT4, CMP #### [facility] [address] [place], [place] [id number] Globulin (S) [Mass/Vol] 2.5 g/dL Normal 1.9-3.7 [facility] [employer] Supervisor Comment on above: Performed By: #### LIPD, TSH reflex FT4, CMP #### [facility] [address] [place], [place] [id number] Glucose [Mass/Vol] 107 mg/dL High 65-99 [facility] [employer] Supervisor Comment on above: Result Comment: For FASTING Glucose --- ADA reference ranges: Normal 65-99 mg/dl Prediabetes 100-125 Diabetes >/= 126 Performed By: #### L IPD, TSH reflex FT4, CMP #### [facility] [address] [place], [place] [id number] Potassium [Moles/Vol] 4.3 mmol/L Normal 3.5-5.5 [facility] [employer] Supervisor Comment on above: Performed By: #### LIPD, TSH reflex FT4, CMP #### [facility] [address] [place], [place] [id number] Protein [Mass/Vol] 6.7 g/dL Normal 6.1-8.1 [facility] [employer] Supervisor Comment on above: Performed By: #### LIPD, TSH reflex FT4, CMP #### [facility] [address] [place], [place] [id number] Sodium [Moles/Vol] 140 mmol/L Normal 135-146 [facility] [employer] Supervisor Comment on above: Performed By: #### LIPD, TSH reflex FT4, CMP #### [facility] [address] [place], [place] [id number] Urea nitrogen [Mass/Vol] 20 mg/dL Normal 7-25 [facility] [employer] Supervisor Comment on above: Performed By: #### LIPD, TSH reflex FT4, CMP #### [facility] [address] [place], [place] [id number] Hemoglobin A1Con 04-25-2022 EAG 128.37 Normal [facility] Specialist Comment on above: Performed By: #### A1C #### [facility] [address] [place], [place] [id number] HbA1c (Bld) [Mass fraction] 6.1 % High 4.0-6.0 [facility] [employer] Supervisor Comment on above: Performed By: #### A1C #### [facility] [address] [place], [place] [id number] Lipid Panelon 04-25-2022 Cholesterol [Mass/Vol] 224 mg/dL High 125-200 [facility] [employer] Supervisor Comment on above: Result Comment: Low risk < 200mg/dL Borderline risk 201-239 mg/dl High risk > or equal to 240 Performed By: #### L IPD, TSH reflex FT4, CMP #### [facility] [address] [place], [place] [id number] Cholesterol in HDL [Mass/Vol] 45 mg/dL Normal >40 [facility] [employer] Supervisor Comment on above: Result Comment: High Cardiovascular Risk HDL <40 mg/dL Low Cardiovascular Risk HDL > or equal to 60 mg/dl Performed By: #### L IPD, TSH reflex FT4, CMP #### [facility] [address] [place], [place] [id number] Cholesterol in LDL [Mass/Vol] 150 mg/dL Normal [facility] Specialist Comment on above: Result Comment: LDL ATP III CLASSIFICATI ON LDL less than 100 mg/dl Optimal LDL 100-129 mg/dl Near or above optimal LDL 130-159 Borderline high LDL 160-189 High LDL greater than 189 mg/dl Very High Performed By: #### L IPD, TSH reflex FT4, CMP #### [facility] [address] [place], [place] [id number] Cholesterol in VLDL [Mass/Vol] 29 mg/dL Normal [facility] [employer] Supervisor Comment on above: Performed By: #### LIPD, TSH reflex FT4, CMP #### [facility] [address] [place], [place] [id number] Cholesterol.tota l/Cholesterol in HDL [Mass ratio] 5 {ratio} Normal [facility] Specialist Comment on above: Performed By: #### LIPD, TSH reflex FT4, CMP #### [facility] [address] [place], [place] [id number] Triglyceride [Mass/Vol] 144 mg/dL Normal 30-150 [facility] Specialist Comment on above: Result Comment: TRIG ATPIII CLASSIFICATI ONS TRIG less than 150 mg/dl Normal TRIG 150-199 mg/dl Borderline High TRIG 200-500 mg/dl High TRIG greather than 500 mg/dl Very High Performed By: #### L IPD, TSH reflex FT4, CMP #### [facility] [address] [place], [place] [id number] RBC Sedimentation Rateon ESR (Bld) [Velocity] 32.00 mm/h High 0.00-20.00 [facility] Specialist Comment on above: Performed By: #### ESR, CBCAD #### [facility] [address] [place], [place] [id number] TSH w/ Reflex to Free T4on 0 04-25-2022 TSH 1.420 uIU/mL Normal 0.400-4.500 [facility] Specialist Comment on above: Performed By: #### LIPD, TSH reflex FT4, CMP #### [facility] [address] [place], [place] [id number] Complete Blood Count with Au to Diffon 01-11-2022 Basophils (Bld) [#/Vol] 0.15 10*3/uL Normal 0.00-0.20 [facility] Specialist Comment on above: Performed By: #### ESR, CBCAD, CMP #### [facility] [address] [place], [place] [id number] Basophils/100 WBC (Bld) 1.6 % Normal [facility] Specialist Comment on above: Performed By: #### ESR, CBCAD, CMP #### [facility] [address] [place], [place] [id number] Eosinophils (Bld) [#/Vol] 0.19 10*3/uL Normal 0.02-0.50 [facility] [place] [facility] [employer] Supervisor Comment on above: Performed By: #### ESR, CBCAD, CMP #### [facility] [address] [place], [place] [id number] Eosinophils/100 WBC (Bld) 2.0 % Normal [facility] Specialist Comment on above: Performed By: #### ESR, CBCAD, CMP #### [facility] [address] [place], [place] [id number] Erythrocyte distribution width (RBC) [Ratio] 12.2 % Normal 11.0-15.0 [facility] Specialist Comment on above: Performed By: #### ESR, CBCAD, CMP #### [facility] [address] [place], [place] [id number] Hematocrit (Bld) [Volume fraction] 43.2 % Normal 38.5-50.0 [facility] Specialist Comment on above: Performed By: #### ESR, CBCAD, CMP #### [facility] [address] [place], [place] [id number] Hemoglobin (Bld) [Mass/Vol] 14.3 g/dL Normal 13.0-17.1 [facility] Specialist Comment on above: Performed By: #### ESR, CBCAD, CMP #### [facility] [address] [place], [place] [id number] Lymphocytes (Bld) [#/Vol] 0.9 10*3/uL Normal 0.9-3.9 [facility] Specialist Comment on above: Performed By: #### ESR, CBCAD, CMP #### [facility] [address] [place], [place] [id number] Lymphocytes/100 WBC (Bld) 10.0 % Normal [facility] Specialist Comment on above: Performed By: #### ESR, CBCAD, CMP #### [facility] [address] [place], [place] [id number] MCH (RBC) [Entitic mass] 31.8 pg Normal 27.0-33.0 [facility] Specialist Comment on above: Performed By: #### ESR, CBCAD, CMP #### [facility] [address] [place], [place] [id number] MCHC (RBC) [Mass/Vol] 33.1 g/dL Normal 32.0-36.0 [facility] Specialist Comment on above: Performed By: #### ESR, CBCAD, CMP #### [facility] [address] [place], [place] [id number] MCV (RBC) [Entitic vol] 96 fL Normal 80-100 [facility] Specialist Comment on above: Performed By: #### ESR, CBCAD, CMP #### [facility] [address] [place], [place] [id number] Monocytes (Bld) [#/Vol] 0.6 10*3/uL Normal 0.2-0.9 [facility] Specialist Comment on above: Performed By: #### ESR, CBCAD, CMP #### [facility] [address] [place], [place] [id number] Monocytes/100 WBC (Bld) 6.1 % Normal [facility] Specialist Comment on above: Performed By: #### ESR, CBCAD, CMP #### [facility] [address] [place], [place] [id number] Neutrophils (Bld) [#/Vol] 7.5 10*3/uL Normal 1.5-7.8 [facility] Specialist Comment on above: Performed By: #### ESR, CBCAD, CMP #### [facility] [address] [place], [place] [id number] Neutrophils/100 WBC (Bld) 79.8 % Normal [facility] Specialist Comment on above: Performed By: #### ESR, CBCAD, CMP #### [facility] [address] [place], [place] [id number] Platelet mean volume (Bld) [Entitic vol] 9.70 fL Normal 7.50-12.50 [facility] Specialist Comment on above: Performed By: #### ESR, CBCAD, CMP #### [facility] [address] [place], [place] [id number] Platelets (Bld) [#/Vol] 278 10*3/uL Normal 140-400 [facility] Specialist Comment on above: Performed By: #### ESR, CBCAD, CMP #### [facility] [address] [place], [place] [id number] RBC (Bld) [#/Vol] 4.49 10*6/uL Normal 4.20-5.80 [place] [employer] Supervisor Comment on above: Performed By: #### ESR, CBCAD, CMP #### [facility] [address] [place], [place] [id number] RDW-SD 43.9 fL Normal 37.0-50.0 [facility] Laying Supervisor Comment on above: Performed By: #### ESR, CBCAD, CMP #### [facility] [address] [place], [place] [id number] WBC (Bld) [#/Vol] 9.4 10*3/uL Normal 3.8-11.0 [facility] Laying Supervisor Comment on above: Performed By: #### ESR, CBCAD, CMP #### [facility] [address] [place], [place] [id number] Comprehensive Metabolic Pane victor hugo 01-11-2022 Albumin [Mass/Vol] 4.1 g/dL Normal 3.6-5.1 [facility] Laying Supervisor Comment on above: Performed By: #### ESR, CBCAD #### [facility] [address] [place], [place] [id number] Albumin/Globulin [Mass ratio] 2.0 {ratio} Normal 1.0-2.5 [facility] Laying Supervisor Comment on above: Performed By: #### ESR, CBCAD #### [facility] [address] [place], [place] [id number] ALP [Catalytic activity/Vol] 73 U/L Normal 40-129 [facility] Laying Supervisor Comment on above: Performed By: #### ESR, CBCAD #### [facility] [address] [place], [place] [id number] ALT [Catalytic activity/Vol] 22 U/L Normal 9-46 [facility] Laying Supervisor Comment on above: Result Comment: 10/24/2021 Female referen ce range changed. Performed By: #### E SR, CBCAD #### [facility] [address] [place], [place] [id number] Anion gap [Moles/Vol] 21 mmol/L High 12-20 [facility] Laying Supervisor Comment on above: Result Comment: Effective 11/29/2019 refer ence range changed. Performed By: #### E SR, CBCAD #### [facility] [address] [place], [place] [id number] AST [Catalytic activity/Vol] 23 U/L Normal 10-40 [facility] Specialist Comment on above: Performed By: #### ESR, CBCAD #### [facility] [address] [place], [place] [id number] Bilirubin [Mass/Vol] 0.31 mg/dL Normal 0.30-1.20 [facility] Specialist Comment on above: Performed By: #### ESR, CBCAD #### [facility] [address] [place], [place] [id number] BUN/CREA 21 Ratio Normal 6-22 [facility] Specialist Comment on above: Performed By: #### ESR, CBCAD #### [facility] [address] [place], [place] [id number] Calcium [Mass/Vol] 9.1 mg/dL Normal 8.6-10.2 [facility] Specialist Comment on above: Performed By: #### ESR, CBCAD #### [facility] [address] [place], [place] [id number] Chloride [Moles/Vol] 105 mmol/L Normal 98-107 [facility] Specialist Comment on above: Performed By: #### ESR, CBCAD #### [facility] [address] [place], [place] [id number] CO2 [Moles/Vol] 19 mmol/L Low 20-31 [facility] Comment on above: Performed By: #### ESR, CBCAD #### [facility] [address] [place], [place] [id number] Creatinine [Mass/Vol] 0.9 mg/dL Normal 0.7-1.4 [facility] Specialist Comment on above: Performed By: #### ESR, CBCAD #### [facility] [address] [place], [place] [id number] eGFRAA 104 mL/min/1.73m2 Normal >60 [facility] Comment on above: Performed By: #### ESR, CBCAD #### [facility] [address] [place], [place] [id number] eGFRNAA 86 mL/min/1.73m2 Normal >60 [facility] Specialist Comment on above: Performed By: #### ESR, CBCAD #### [facility] [address] [place], [place] [id number] Globulin (S) [Mass/Vol] 2.1 g/dL Normal 1.9-3.7 [facility] Specialist Comment on above: Performed By: #### ESR, CBCAD #### [facility] [address] [place], [place] [id number] Glucose [Mass/Vol] 112 mg/dL High 65-99 [facility] Specialist Comment on above: Result Comment: For FASTING Glucose --- ADA reference ranges: Normal 65-99 mg/dl Prediabetes 100-125 Diabetes >/= 126 Performed By: #### E SR, CBCAD #### [facility] [address] [place], [place] [id number] Potassium [Moles/Vol] 4.6 mmol/L Normal 3.5-5.5 [facility] Specialist Comment on above: Result Comment: Specimen is hemolyzed. R esults may be affected. Performed By: #### E SR, CBCAD #### [facility] [address] [place], [place] [id number] Protein [Mass/Vol] 6.2 g/dL Normal 6.1-8.1 [facility] Specialist Comment on above: Performed By: #### ESR, CBCAD #### [facility] [address] [place], [place] [id number] Sodium [Moles/Vol] 140 mmol/L Normal 135-146 [facility] Specialist Comment on above: Performed By: #### ESR, CBCAD #### [facility] [address] [place], [place] [id number] Urea nitrogen [Mass/Vol] 18 mg/dL Normal 7-25 [facility] Specialist Comment on above: Performed By: #### ESR, CBCAD #### [facility] [address] [place], [place] [id number] RBC Sedimentation Rateon ESR (Bld) [Velocity] 15.00 mm/h Normal 0.00-20.00 [facility] Specialist Comment on above: Performed By: #### ESR, CBCAD #### [facility] [address] [place], [place] [id number] Covid-19 PCR (CVDTB)on 11-25 SARS-CoV-2 (COVID-19) RNA SHERRI+probe Ql (Unsp spec) Not detected Normal NOT DETECTED [facility] Comment on above: Result Comment: This test is not yet kenji roved or cleared by the [place] FDA. When there are no FDA-approved or cleared tests available, and other criteria are met, FDA can make tests available under an emergency access mechanism called an Emergency Use Authorization (EUA). The EUA for this test is supported by the Parakeet Raiser of Health and Human Service's (HHS's) declaration that circumstances exist to justify the emergency use of in vitro diagnostics for the detection and/or diagnosis of the virus that causes COVID-19. This EUA will remain in effect (meaning this test can be used) for the duration of the COVID-19 declaration justifying emergency of IVDs, unless it is terminated or revoked by FDA (after which the test may no longer be used). When diagnostic testing is negative, the possibility of a false negative should be considered in the context of a patient's recent exposures and the presence of clinical signs and symptoms consistent with SARS-CoV-2. Performed By: #### C [facility] #### [facility] [address] [place] [address] Dr. Edith Mooney Covid-19 PCR ([facility])on SARS-CoV-2 (COVID-19) RNA SHERRI+probe Ql (Unsp spec) Not detected Normal NOT DETECTED [facility] Comment on above: Result Comment: This test is not yet kenji roved or cleared by the [place] FDA. When there are no FDA-approved or cleared tests available, and other criteria are met, FDA can make tests available under an emergency access mechanism called an Emergency Use Authorization (EUA). The EUA for this test is supported by the Parakeet Raiser of Health and Human Service's (HHS's) declaration that circumstances exist to justify the emergency use of in vitro diagnostics for the detection and/or diagnosis of the virus that causes COVID-19. This EUA will remain in effect (meaning this test can be used) for the duration of the COVID-19 declaration justifying emergency of IVDs, unless it is terminated or revoked by FDA (after which the test may no longer be used). When diagnostic testing is negative, the possibility of a false negative should be considered in the context of a patient's recent exposures and the presence of clinical signs and symptoms consistent with SARS-CoV-2. Performed By: #### C [facility] #### [facility] [address] [place], [place] [address] Dr. Edith Mooney ADHESION TESTER polysom split nighton ADHESION TESTER polysom split night [facility] [place] [address] Sleep Lab Report Signed Patient: Tomas Reynoso MR#: [id number] 1 : 1940 Acct:[id number] Age/Sex: 80 / M ADM Date: 06/08/21 Loc: Room: Type: [facility] Attending Dr: Isreal Loera MD Ordering Provider: Leonarda Fink DO Date of Service: 06/08/21 Copies to: Leonarda Fink DO INDICATION FOR STUDY: CPAP titration. Sleep montage was done in the usual fashion for clinical polysomnography including the continuous electroencephalogram, electrocardiography, electro-oculography, and electromyography of the mentalis (chin) and the tibialis anterior muscles bilaterally. The respiratory battery consisted of measurements of nasal and oral air flow, abdominal and thoracic wall movements and efforts, and nocturnal continuous oximetry. Flow volume loops were monitored to differentiate between central and obstructive respiratory events. Respiratory events were scored as apneas with decreases of airflow of at least 90% baseline with durations of at least 10 seconds while events were scored as hypopneas with decreases of airflow of at least 30% and up to 90% of baseline with durations of at least 10 seconds, followed by desaturations of at least 4%. SLEEP LOG: Not completed. SLEEP PARAMETERS: Time in bed was 7.2 hours, and total sleep time was 4.9 hours, giving a sleep efficiency of 68.8%. Latencies to sleep stages were normal with a sleep latency of 12.5 minutes and a REM latency of 97 minutes. Sleep architecture was essentially normal. The patient spent 6.4 percent and 19 minutes in stage N1, 75.3 percent and 223 minutes in stage N2, 0 percent and 0 minutes in stage N3, and 18.2 percent and 54 minutes in stage REM. RESPIRATORY SUMMARY: During the titration sleep study, the patient was treated with CPAP for control of sleep apnea. At the final CPAP pressure of 8 cm, the patient had 40 minutes total sleep time. At that pressure, the patient had a total of 4 respiratory events (3 central, 1 obstructive, 0 mixed, and 0 hypopneas with at least 4 percent desaturation). The apnea-hypopnea index was 0. The patient aroused 4 times due to respiratory events for a respiratory arousal index of 6.0. Nocturnal hemoglobin saturations were well controlled at the final treatment pressure. However, considering all treatment pressures, the patient had a mean saturation of 92% with a range of 81 percent to 96 percent. Considering all treatment pressures, 17.1 percent of night was below 90% saturation. BODY POSITION STATISTICS: Considering all treatment pressures, the patient spent 18.4 percent of sleep time on the back with an apnea/hypopnea index of 23.1. The patient spent 81.6 percent of sleep time on the side with an apnea/hypopnea index of 4.2, considering all treatment pressures. ELECTROCARDIOGRAM SUMMARY: ECG summary revealed an average heart rate of 55 with 222 PACs and 119 PVCs. LIMB-MOVEMENT SUMMARY: Measurements of left and right limb movements by anterior tibialis electromyography revealed no significant periodic limb movements. The patient had a total of 0 limb movements with 0 arousals. The periodic limb movement arousal index was 0.0. IMPRESSION: 1. Obstructive sleep apnea, controlled with continuous positive airway pressure at 8 cm. 2. Breakthrough central apneas during sleep reinitiation, suspect sleep onset centrals, which may not represent long-term issue. 3. Frequent premature atrial contractions and premature ventricular contractions. COMMENTS: The patient was referred by his primary cushion former for titration polysomnography regarding previously documented obstructive sleep apnea. Records show home sleep test showing an AHI of 36, performed in January 2021. This study does show good control of sleep apnea using CPAP. The final treatment pressure of CPAP 8 cm did control obstructive events. There were some sleep onset central apneas with sleep reinitiation in the last hour of recording. This is not felt to represent complex sleep apnea. Treatment with auto CPAP is reasonable, though if central events persist, these should be evaluated and treated as appropriate. RECOMMENDATIONS: 1. The patient should return to the ordering and treating physician for review of these results and formulation an appropriate treatment plan. 2. The patient could initiate auto CPAP, minimum 5, maximum 10. 3. The patient should be followed by the ordering and managing cushion former, and further adjustments may prove advisable, particularly if central apneas persist. 4. The patient should ensure adequate total sleep time and regular sleep-wake cycles. The principles of appropriate sleep hygiene should be encouraged. 5. The patient should continue efforts at progressive weight loss. Even moderate weight loss can result in significant improveme (more content not included)... Normal [facility] CNOVon 08-08-2017 CNOV Office Visit (PAINLN) -TOMAS REYNOSO ([id number]) 1940 MDate Time Provider Department08/08/17 9:30 AM MICAELA FALK) D[place] During your visit today, we recorded the following information about you: Blood pressure Weight Height 102/80 99.3 kg 1.753 Jose Mcclendon 08/08/2017 8:36 AM AddendumDiscontinue your Aleve (Naproxen) and begin Dolobid may take 1 tab 2 times aday as neededCAR[facility] FACTSLAB HOURS: Lab is open 7:30am to 6pm M-TH, open 7:30am -5pm on Friday and [id number] Friday.Routine Lab Orders 45 days after they are entered. If your lab ordersexpire, you may be required to wait in the lab while they are reinstatedFUTURE ORDERS are lab tests to be completed on the ?EXPECTED? date. Theseorders 45 days after the expected date.STANDING ORDERS are recurring orders with an expiration date. The intervalwill indicate how often the test should be completed.FASTING LAB means nothing to eat or drink (except water) 10-12 hours beforeyour blood is drawn.CT/MRI/IVP If you have one of these radiology exams ordered along with bloodwork, please complete the blood work at least one day prior to the scheduledexam.Micaela Falk PA-C 08/08/2017 10:15 AM SignedMr. Angeles a 76 year old male returns today for follow up of Lower backtightness, he states that symptoms have improved.PAIN:Pain NoMEDICATIONS: Medications reviewed and verified.Current Outpatient Prescriptions:ASCORBIC ACID (VITAMIN C ORAL) Take by mouth once daily.MULTIVIT-MINERALS/FA/LY COPENE (ONE-A-DAY MEN'S ORAL) Take by mouth once daily.Red Yeast Rice Extract 600 mg cap Take by mouth.Levothyroxine 75 mcg cap Take by mouth.ezetimibe (ZETIA) 10 mg tablet Take 10 mg by mouth once daily.naproxen sodium (ALEVE) 220 mg cap Take 1 tablet by mouth twice daily.Omeprazole (PRILOSEC) 40 mg capsule Take 40 mg by mouth twice daily.No current facility-administered medications for this visit.Patient feels that medications have helped a littlePREVIOUS TREATMENTS LASTING SIX WEEKS IN THE LAST SIX MONTHSActive conservative therapy lasting 6 weeks in the last six months (see below) 1. Physical therapy: No 2. Home exercise program after PT: No 3. Occupational therapy: No 4. A physician supervised home exercise program (HEP): No 5. Rn Placement: NoPassive conservative therapy lasting 6 weeks in the last six months (see below) 1. Medical devises: No 2. Acupuncture: No 3. Tens unit: No 4. Prescription pain medication: No 5. NSAIDS: NoTREATMENTS:Cortisone injectionInversion tableI agree with the Chief Complaint, ROS, and Past Histories independentlygathered by the clinical support services manager annotations made and the remaining noteaccurately describes my personal service to the patient.SONALI Archer-CIMAGING:ImpressionIMPRESS ION:Marked thoracolumbar dextroscoliosis centered at L1.No significant thoracic canal or foraminal narrowing.Multilevel degenerative changes of the lumbar spine with mild-moderatecanal stenosis at L2-3 and multilevel mild to moderate neural foraminalnarrowing as detailed.Check Totaler: KALYAN ?Transcribe Date/Time: May 13 2017 ?9:55ADictated by : NANDO MITCHELL MDThis examination was interpreted and the report reviewed andelectronically signed by:GABRIEL PHILLIPS MD on May 13 2017 11:02AM ?ESTResults-Findings* * *Final Report* * *DATE OF EXAM: May 13 2017 ?9:27AM ?CHM ? 0303 ?- ?MRI LUMBAR SPINE WO IVCON ?/ REASON: multiple diagnoses?? ?* * * * Physician Interpretation * * * *?MRI LUMBAR SPINE WO IVCON, MRI THORACIC SPINE WO IVCONHISTORY: ?Scoliosis and lumbar region radiculopathy. ?Scoliosis,unspecified.COMPAR LEELEE: Lumbar and scoliosis radiograph 04/30/2017TECHNIQUE: Routine thoracic, and lumbosacral spine MR protocol withoutgadolinium.RESULT:Scou t image demonstrates reversal of the cervical lordosis centered at C4with mild canal narrowing at C4-5 and C5-C6.MR THORACIC:Counting reference: ?Lumbosacral junction. For the purposes of thisreport, L4-5 is considered the level of the iliac crest.Alignment: ? ?Mild grade 1 stepwise anterolisthesis from C7-T5. ?Dextroscoliosis of the upper lumbar and lower thoracic spine.Cord: ?The thoracic spinal cord is within normal limits of signalintensity and morphology.Bone marrow signal/fracture: ? ?T2 and T5 hemangiomas. ?Degenerativeendplate changes with endplate irregularity and multilevel Schmorl'snodes. ?Vertebral body heights are maintained. ?No evidence of priorfracture.Thoracic soft tissues: ? ?The paraspinal soft tissues are within normallimits. ?Small hiatal hernia.Canal and foramina: ? Small disc bulges at T2-T3, T3-T4, T8-T9, T9-T10and T10-T11 without impact upon the cord. ?No significant canalnarrowing. ?Foramina appear patent.MR LUMBAR:Counting reference: ?Lumbosacral junction. ?For the purposes of thisreport, L4-5 is considered the level of the iliac crest.Alignment: ? ?Marked dextroscoliosis centered at L1, seen on priorimaging. ?Mild to moderate right lateral listhesis of L2 on L3. ?Mildleft lateral listhesis of T12 on L1 and L4-L5. ?Mild retrolisthesis ofT12 on L1 and L3 on L4.Bone marrow signal/fracture: ? ?Multilevel vertebral disc space narrowingwith endplate irregularity and hypertrophic changes. ?Endplatedegenerative change with type I marrow signal greater greatest at L2-3,also at L1-2 on the left, for on the right and L5-S1 bilaterally. ?Noevidence of prior fracture.Conus: ? ?The conus is within normal limits of signal intensity andmorphology terminating at L1.Paraspinal soft tissues: ? ?Paraspinal soft tissues are within normallimits.T12-L1: ?Mild disc bulge without significant canal narrowing. ?Rightforamen appears patent. ?Mild left foraminal narrowing.L1-L2: ? ?Marked loss of disc height on the left, and a disc bulgeeccentric to the left. ?No significant canal stenosis. ?Mild left neuralforaminal narrowing. ?No significant right neural foraminal narrowing.L2-L3: ? ?Degenerative endplate marrow changes, and marked loss of discheight on the left. ?Diffuse disc bulge eccentric to the left. ?Ligamentum flavum and facet hypertrophy are present. ?Findings contributeto mild/moderate canal stenosis. ?There is moderate left neural foraminalnarrowing. ?No significant right neural foraminal narrowing.L3-L4: ? ?Endplate degenerative change and loss of disc height centrally,with a diffuse disc bulge. ?Mild ligamentum flavum and facet hypertrophy.?Findings contribute to mild canal stenosis. ?Mild bilateral neuralforaminal narrowing.L4-L5: ? ?Marked loss of disc height on the right with partial interbodyfusion. ?Diffuse disc osteophyte complex, without significant canalstenosis. ?Endplate and facet hypertrophy result in moderate right andmild left neural foraminal narrowing.L5-S1: ? ?Loss of disc height and a disc bulge, without significant canalstenosis. ?Endplate and facet degenerative change. ?Mild bilateral neuralforaminal narrowing.Sacrum and iliac wings: ? ?Degenerative changes in the visualizedbilateral sacroiliac joints.EXAM:BP 102/80 Ht 175.3 cm (5' 9ANDquot;) Wt 99.3 kg (219 lb) BMI 32.34 kg/m2No acute distress noted, patient alert and oriented X's 3.Resistive testing proximal and distal in the lower extremeties show 5/5strength.DTR's are symmetrical in the lower extremeties.Nerve root tension signs: Negative.Gait WNLHPI-IMPRESSION:76 year old male with chronic low back pain. S/p L2-L3 LEFT TRANSFORAMINALepidural steroid injection # 1 under fluoroscopic guidance on 06/20/17. Ptreports improvement (difficult to get a qualifier) but he reports no pain todayjust occasional ANDquot;tightnessANDquot; in the muscles of his back with prolongedstanding and performing his outdoor activities which he does report that he canperform easier since injection. Sitting for 10 mins relieves back pain. Hestates the left side back pain radiating to LLQ and groin has resolved sincelast office He remains very active, currently cutting wood and stacking for thewinter. He reports that his GERD has increased following the injection but healso reports increased use in Naproxen will change to Dolobid.Spinal stenosis, lumbar (primary encounter diagnosis)Left lumbar radiculopathyScoliosis of thoracolumbar spine, unspecified scoliosis typePLAN:Discontinue Naproxen prescription given for Dolobid 500 mg 2x/dayHome traction prn/toleratedContinue physical activity as toleratedEGD as scheduled 08/21/17RTC as needed may call to repeat injection as neededThe patient verbalized agreement/understanding of today's plan. All questionsanswered.SONALI Archer-CSeptember 2016Supervising Physician: Dr. RuvalcabaReferrveena Provider: ENEDELIA RUVALCABA [[id number]]Allergies As of Date: 08/08/2017(No Known Allergies)Date Reviewed: 08/08/2017Reviewed by: Heena Mcclendon - Fully AssessedReason for Visit: Follow Up [171]Primary Visit Diagnosis:Spinal stenosis, lumbar [M48.06] Other Visit Diagnoses:Left lumbar radiculopathy [M54.16] Scoliosis of thoracolumbar spine, unspecified scoliosis type [M41.9]Order(s):diflunisal (DOLOBID) 500 mg tabTake 1 tablet by mouth twice daily.Disp: 60 tabletRfl: 0Prescriptions as of 08/08/2017 Sig: VITAMIN C ORAL Take by mouth once daily. ONE-A-DAY MEN'S ORAL Take by mouth once daily. RED YEAST RICE 600 MG CAPSULE Take by mouth. LEVOTHYROXINE 75 MCG CAPSULE Take by mouth. EZETIMIBE 10 MG TABLET Take 10 mg by mouth once gabriel* OMEPRAZOLE 40 MG CAPSULE,PRESTON* Take 40 mg by mouth twice zach* DIFLUNISAL 500 MG TABLET Take 1 tablet by mouth twice *Medication notes this encounter NAPROXEN SODIUM 220 MG CAPSULE >> Micaela Falk PA-C 08/08/2017 8:51 AM increased Acid refluxProblem List As Of Date 08/08/2017 Noted Resolved Hiatal hernia with GERD [K21.9, K44.9] INVALID FOR* Hypothyroid [E03.9] Generalized OA [M15.9] Left lumbar radiculopathy [M54.16] INVALID FOR* Scoliosis of thoracolumbar spine [M41.9] INVALID FOR* Other instructions from your clinician: Discontinue your Aleve (Naproxen) and begin Dolobid may take 1 tab 2 times a day as needed [facility] FACTS LAB HOURS: Lab is open 7:30am to 6pm M-, open 7:30am -5pm on Friday and open 8am-12pm Friday. Routine Lab Orders 45 days after they are entered. If your lab orders , you may be required to wait in the lab while they are reinstated FUTURE ORDERS are lab tests to be completed on the ?EXPECTED? date. These orders 45 days after the expected date. STANDING ORDERS are recurring orders with an expiration date. The interval will indicate how often the test should be completed. FASTING LAB means nothing to eat or drink (except water) 10-12 hours before your blood is drawn. CT/MRI/IVP If you have one of these radiology exams ordered along with blood work, please complete the blood work at least one day prior to the scheduled exam.Prescriptions ordered this encounter Disp Refills Start End DIFLUNISAL 500 MG TABLET 60 t* 0 08/08/2017 Route: ORAL Sig: Take 1 tablet by mouth twice daily.Medications Discontinued During This Encounter naproxen sodium (ALEVE) 220 mg cap 08/08/2017 Class: Historical Med Route: ORAL Sig: Take 1 tablet by mouth twice daily. Disc: Clinical DecisionEncounter Number: [id number] Status:Closed by MICAELA FALK PA-C on 08/08/17 Normal [facility] PROGRESSon 08-08-2017 PROGRESS HNO ID: [id number] thor: Micaela Adair (Pa)miKwanervice: (none)Author Type: Physician AssistantType: Progress NotesFiled: 08/08/2017 10:15 AMNote Text:Mr. Reynoso a 76 year old male returns today for follow up of Lower backtightness, he states that symptoms have improved.PAIN:Pain NoMEDICATIONS: Medications reviewed and verified.Current Outpatient Prescriptions:ASCORBIC ACID (VITAMIN C ORAL) Take by mouth once daily.MULTIVIT-MINERALS/FA/LY COPENE (ONE-A-DAY MEN'S ORAL) Take by mouth oncedaily.Red Yeast Rice Extract 600 mg cap Take by mouth.Levothyroxine 75 mcg cap Take by mouth.ezetimibe (ZETIA) 10 mg tablet Take 10 mg by mouth once daily.naproxen sodium (ALEVE) 220 mg cap Take 1 tablet by mouth twice daily.Omeprazole (PRILOSEC) 40 mg capsule Take 40 mg by mouth twice daily.No current facility-administered medications for this visit.Patient feels that medications have helped a littlePREVIOUS TREATMENTS LASTING SIX WEEKS IN THE LAST SIX MONTHSActive conservative therapy lasting 6 weeks in the last six months (seebelow) 1. Physical therapy: No 2. Home exercise program after PT: No 3. Occupational therapy: No 4. A physician supervised home exercise program (HEP): No 5. Rn Placement: NoPassive conservative therapy lasting 6 weeks in the last six months (seebelow) 1. Medical devises: No 2. Acupuncture: No 3. Tens unit: No 4. Prescription pain medication: No 5. NSAIDS: NoTREATMENTS:Cortisone injectionInversion tableI agree with the Chief Complaint, ROS, and Past Histories independentlygathered by the clinical support services manager annotations made and the remainingnote accurately describes my personal service to the patient.SONALI Archer-CIMAGING:ImpressionIMPRESS ION:Marked thoracolumbar dextroscoliosis centered at L1.No significant thoracic canal or foraminal narrowing.Multilevel degenerative changes of the lumbar spine with mild-moderatecanal stenosis at L2-3 and multilevel mild to moderate neural foraminalnarrowing as detailed.Check Totaler: KALYAN ?Transcribe Date/Time: May 13 2017 ?9:55ADictated by : NANDO MITCHELL MDThis examination was interpreted and the report reviewed andelectronically signed by:GABRIEL PHILLIPS MD on May 13 2017 11:02AM ?ESTResults-Findings* * *Final Report* * *DATE OF EXAM: May 13 2017 ?9:27AM ?CHM ? 0303 ?- ?MRI LUMBAR SPINE WO IVCON ?/ REASON: multiple diagnoses?? ?* * * * Physician Interpretation * * * *?MRI LUMBAR SPINE WO IVCON, MRI THORACIC SPINE WO IVCONHISTORY: ?Scoliosis and lumbar region radiculopathy. ?Scoliosis,unspecified.COMPAR LEELEE: Lumbar and scoliosis radiograph 04/30/2017TECHNIQUE: Routine thoracic, and lumbosacral spine MR protocol withoutgadolinium.RESULT:Scou t image demonstrates reversal of the cervical lordosis centered at C4with mild canal narrowing at C4-5 and C5-C6.MR THORACIC:Counting reference: ?Lumbosacral junction. For the purposes of thisreport, L4-5 is considered the level of the iliac crest.Alignment: ? ?Mild grade 1 stepwise anterolisthesis from C7-T5. ?Dextroscoliosis of the upper lumbar and lower thoracic spine.Cord: ?The thoracic spinal cord is within normal limits of signalintensity and morphology.Bone marrow signal/fracture: ? ?T2 and T5 hemangiomas. ?Degenerativeendplate changes with endplate irregularity and multilevel Schmorl'snodes. ?Vertebral body heights are maintained. ?No evidence of priorfracture.Thoracic soft tissues: ? ?The paraspinal soft tissues are within normallimits. ?Small hiatal hernia.Canal and foramina: ? Small disc bulges at T2-T3, T3-T4, T8-T9, T9-T10and T10-T11 without impact upon the cord. ?No significant canalnarrowing. ?Foramina appear patent.MR LUMBAR:Counting reference: ?Lumbosacral junction. ?For the purposes of thisreport, L4-5 is considered the level of the iliac crest.Alignment: ? ?Marked dextroscoliosis centered at L1, seen on priorimaging. ?Mild to moderate right lateral listhesis of L2 on L3. ?Mildleft lateral listhesis of T12 on L1 and L4-L5. ?Mild retrolisthesis ofT12 on L1 and L3 on L4.Bone marrow signal/fracture: ? ?Multilevel vertebral disc space narrowingwith endplate irregularity and hypertrophic changes. ?Endplatedegenerative change with type I marrow signal greater greatest at L2-3,also at L1-2 on the left, for on the right and L5-S1 bilaterally. ?Noevidence of prior fracture.Conus: ? ?The conus is within normal limits of signal intensity andmorphology terminating at L1.Paraspinal soft tissues: ? ?Paraspinal soft tissues are within normallimits.T12-L1: ?Mild disc bulge without significant canal narrowing. ?Rightforamen appears patent. ?Mild left foraminal narrowing.L1-L2: ? ?Marked loss of disc height on the left, and a disc bulgeeccentric to the left. ?No significant canal stenosis. ?Mild left neuralforaminal narrowing. ?No significant right neural foraminal narrowing.L2-L3: ? ?Degenerative endplate marrow changes, and marked loss of discheight on the left. ?Diffuse disc bulge eccentric to the left. ?Ligamentum flavum and facet hypertrophy are present. ?Findings contributeto mild/moderate canal stenosis. ?There is moderate left neural foraminalnarrowing. ?No significant right neural foraminal narrowing.L3-L4: ? ?Endplate degenerative change and loss of disc height centrally,with a diffuse disc bulge. ?Mild ligamentum flavum and facet hypertrophy.?Findings contribute to mild canal stenosis. ?Mild bilateral neuralforaminal narrowing.L4-L5: ? ?Marked loss of disc height on the right with partial interbodyfusion. ?Diffuse disc osteophyte complex, without significant canalstenosis. ?Endplate and facet hypertrophy result in moderate right andmild left neural foraminal narrowing.L5-S1: ? ?Loss of disc height and a disc bulge, without significant canalstenosis. ?Endplate and facet degenerative change. ?Mild bilateral neuralforaminal narrowing.Sacrum and iliac wings: ? ?Degenerative changes in the visualizedbilateral sacroiliac joints.EXAM:BP 102/80 Ht 175.3 cm (5' 9 ) Wt 99.3 kg (219 lb) BMI 32.34 kg/m2No acute distress noted, patient alert and oriented X's 3.Resistive testing proximal and distal in the lower extremeties show 5/5strength.DTR's are symmetrical in the lower extremeties.Nerve root tension signs: Negative.Gait WNLHPI-IMPRESSION:76 year old male with chronic low back pain. S/p L2-L3 LEFTTRANSFORAMINAL epidural steroid injection # 1 under fluoroscopic guidanceon 06/20/17. Pt reports improvement (difficult to get a qualifier) but hereports no pain today just occasional tightness in the muscles of hisback with prolonged standing and performing his outdoor activities whichhe does report that he can perform easier since injection. Sitting for 10mins relieves back pain. He states the left side back pain radiating toLLQ and groin has resolved since last office He remains very active,currently cutting wood and stacking for the winter. He reports that hisGERD has increased following the injection but he also reports increaseduse in Naproxen will change to Dolobid.Spinal stenosis, lumbar (primary encounter diagnosis)Left lumbar radiculopathyScoliosis of thoracolumbar spine, unspecified scoliosis typePLAN:Discontinue Naproxen prescription given for Dolobid 500 mg 2x/dayHome traction prn/toleratedContinue physical activity as toleratedEGD as scheduled 08/21/17RTC as needed may call to repeat injection as neededThe patient verbalized agreement/understanding of today's plan. Allquestions answered.SONALI Archer-CSeptember 2016Supervising Physician: Dr. Peg Andres [facility] HISTORY PHYSICALon 7 HISTORY PHYSICAL HNO ID: [id number] thor: Renu Bolton ([facility]) SheppardService: (none)Author Type: Nurse PractitionerType: HANDPFiled: 06/20/2017 8:42 AMNote Text:PROCEDURAL SEDATION HISTORY AND PHYSICAL EXAMSERVICE DATE: 06/20/2017SERVICE TIME: 8:42 AMSUBJECTIVEHPI: This is a 76 year old male who presents with back painPAST ANESTHESIA HISTORY: No history of adverse eventPAST MEDICAL HISTORYDiagnosis Date- Chronic sinusitis- Generalized OA- GERD (gastroesophageal reflux disease)- Hiatal hernia- High cholesterol- Hypothyroid- SnoringPAST SURGICAL HISTORYNo date: ARTHROPLASTY TOTAL SHOULDERNo date: PAST SURGICAL HISTORY OF Comment: tonsilectomy as a child11/2016: PAST SURGICAL HISTORY OF Comment: lap paraesphageal herniaNo date: REPAIR ING HERNIA,5+Y/O,REDUCIBL Comment: Hernia repair, inguinalNo date: TOTAL KNEE REPLACEMENT Comment: Knee replacement, totalPrior to Admission medications as of 06/20/17 0820Medication Sig Last Dose TakingASCORBIC ACID (VITAMIN C ORAL) Take by mouth once daily. Unknown atUnknown time YesMULTIVIT-MINERALS/FA/LYCOP KIARA (ONE-A-DAY MEN'S ORAL) Take by mouth oncedaily. 06/19/2017 at Unknown time YesLevothyroxine 75 mcg cap Take by mouth. 06/19/2017 at Unknown time Yesezetimibe (ZETIA) 10 mg tablet Take 10 mg by mouth once daily. 06/19/2017at Unknown time Yesnaproxen sodium (ALEVE) 220 mg cap Take 1 tablet by mouth twice daily.06/19/2017 at Unknown time YesOmeprazole (PRILOSEC) 40 mg capsule Take 40 mg by mouth twice daily.06/19/2017 at Unknown time YesRed Yeast Rice Extract 600 mg cap Take by mouth. Unknown at Unknown timeALLERGIESNo Known AllergiesOBJECTIVEPHYSICAL EXAM: The remainder of the physical exam is noncontributory.AIRWAY: Airway Visualization of Uvula: YesMouth opening greater than 2 fingerbreadths: YesNeck Full Range of Motion: YesLUNGS: Lungs clear to auscultation, Good diaphragmatic excursionCARDIAC: Normal S1 and S2; no rubs, murmurs, or gallopsASSESSMENT/PLANASA Class: ASA Class:: Patient with severe systemic diseaseActive Problems: Scoliosis of thoracolumbar spine POA: Yes Assessment AND Plan: LESI L3-4Provisional Diagnosis/Treatment Plan: LESI L3-4SIGNATURE: Renu Reyes CNP PATIENT NAME: Tomas Perez: June 20, 2017 : 8:42 AM PAGER: Normal [facility] OPERATIVE NOon 06-20-2017 OPERATIVE NO HNO ID: [id number] thor: Enedelia Gottiervice: Pain ManagementAuthor Type: PhysicianType: Operative ReportFiled: 06/20/2017 9:11 AMNote Text:Patient Name Medical Record #Tomas Reynoso [id number] of : 1940 Admit Date: June 20, 2017Sex / Age: male/76 year old Discharge Date: June 20, 2017Date: June 20, 2017Attending Physician: Enedelia Ruvalcaba MDService: Pain ManagmentLOG ID: [id number]/Procedure Date: 06/20/2017Incision/Procedure Start Time: 8:52 AMIncision Close/Procedure End Time: 9:07 AMPREOPERATIVE DIAGNOSIS: Thoracic/Lumbosacral Neuritis, Spinal Stenosis -Lumbar and Lumbar Degenerative DiscPOSTOPERATIVE DIAGNOSIS: SameHISTORY:(M54.16) Left lumbar radiculopathy (primary encounter diagnosis)Comment:5 month history of left flank to LLQ/groin painnoticed after using a chain saw in 12/2016since then pain reoccurs when he is lifting (repairs radiators, lifted 70lb cylinder) - other reese no antalgic or exacerbating positiondoes admit to limitation in his ability to stand or walk - Back tightensup - resolves with sittingneg SLR2+ DTR'sHip ROM wnl - pain freeLE 2 + pulses (chronic left LE edema sp - varicose vein surgery)(M41.9) Scoliosis of thoracolumbar spine, unspecified scoliosis typeComment:dextroscoliosisap ex L 1-2also:- has been told he is borderline diabetic- recent fundoplication for GERD - recent abd CT scan reported wnlHe is an extremely active patient - with scoliosis and degenerativechanges at the level of his curvature which may likely be generating hisleft sided LQ and groin area pain.He reports a history that is otherwise consistent with pseudoclaudicatingpattern of thoraco/lumbar pain and insidious limitation in ability to walka distance.MRI 2017:L1-L2: Marked loss of disc height on the left, and a disc bulgeeccentric to the left. No significant canal stenosis. Mild left neuralforaminal narrowing. No significant right neural foraminal narrowing.L2-L3: Degenerative endplate marrow changes, and marked loss of discheight on the left. Diffuse disc bulge eccentric to the left.Ligamentum flavum and facet hypertrophy are present. Findings contributeto mild/moderate canal stenosis. There is moderate left neural foraminalnarrowing. No significant right neural foraminal narrowing.L3-L4: Endplate degenerative change and loss of disc height centrally,with a diffuse disc bulge. Mild ligamentum flavum and facet hypertrophy. Findings contribute to mild canal stenosis. Mild bilateral neuralforaminal narrowing.L4-L5: Marked loss of disc height on the right with partial interbodyfusion. Diffuse disc osteophyte complex, without significant canalstenosis. Endplate and facet hypertrophy result in moderate right andmild left neural foraminal narrowing.L5-S1: Loss of disc height and a disc bulge, without significant canalstenosis. Endplate and facet degenerative change. Mild bilateral neuralforaminal narrowing.NAME OF OPERATION: L2-L3 LEFT TRANSFORAMINAL epidural steroid injection# 1 under fluoroscopic guidance.SURGEON: Enedelia Ruvalcaba MDASSISTANT: None.ANESTHESIA: LocalINFORMED CONSENT: Risks, benefits and alternatives were discussed with thepatient in detail. He verbalized understanding and agreed to proceed.PROCEDURE:The patient was brought to fluoroscopy OR suite. Intravenous access wasobtained prior to the procedure. The patient was positioned prone on thefluoroscopy table. Continuous hemodynamic monitoring was initiatedincluding blood pressure, EKG and pulse oximetry. Intravenous sedation wasnot administered. The area of the lumbar spine was prepped well withpovidone-iodine x 3 and draped into a sterile field. Skin anesthesia wasachieved using total of 3 cc of lidocaine 1 % over receptive injectionsite. A 22 G gauge 5 inch Quinke needle was slowly inserted and advancedusing [id number] technique to air with AP and Obliquefluoroscopic imaging for needle guidance to the inferior aspect of L 2pedicle. Negative aspiration for blood and CSF was confirmed. Epiduralcontrast spread was confirmed using 2 mL of Omnipaque contrast Absence ofvascular uptake was confirmed as well. A total of 3 cc of lidocaine 1%mixed with 40 mg of Triamcinolone was injected. Needle was then removedand bleeding was nil. Sterile dressing was applied and the patient wasbrought to the Recovery Room in stable condition.Complications: None.Estimated Blood Loss: None.Drains: None.Implantable Device: None.Specimen: None.I, Enedelia Ruvalcaba MD, performed the entire procedure.ASSESSMENT AND PLAN:[place] is status post LEFT L2-L3 Transforaminal epidural steroidinjection )L 2-3 interlaminar calcification.He did very well without any apparent complications.He is to return to clinic in 6 weeks for follow up.Postoperative instructions were given.He voiced understanding, and he was taken to the recovery room in stablecondition.Shruthi Lew ManagementJuly 2016 [facility] PT EDon 06-20-2017 PT ED HNO ID: [id number] thor: Ava (Rn) Rogelio, RNService: (none)Author Type: Registered NurseType: Patient EducationFiled: 06/20/2017 9:31 AMNote Text:[facility] PATIENT EDUCATION NOTEREADINESS TO LEARNCOGNITIVE ABILITY: Alert and orientedMOTIVATION TO LEARN: InterestedFAMILY SUPPORT: High - Very involved in pt careINSTRUCTION PROVIDED TO: Patient and family memberPATIENT LEARNS BEST BY: Multiple MethodsFACTORS AFFECTING LEARNING: NonePHYSICAL LIMITATIONS AFFECTING LEARNING: NoneLEARNING RESPONSEDIAGNOSIS: back painEDUCATION TOPIC/TEACHING POINTS: Pain TFESIMETHOD OF INSTRUCTION: Written instruction - handoutsVerbal instructionPATIENT / FAMILY RESPONSE: Verbalizes understanding of: INCISIONCARE/DRESSING CAREINFECTION MANAGEMENT-Signs and symptoms of an infection and importance ofcontacting the physicianMEDICAL REGIMEN-Importance of following prescribed medical regimenPAIN MANAGEMENT-Effective strategies to manage pain in addition to painmedicationPROCEDURE PRECAUTIONSWORSENING CONDITIONDISCHARGE INSTRUCTIONS: PROCEDURE SPECIFICFOLLOW-UP PLAN: Follow up phone call.REFERRAL (RECOMMENDATION): NonePatient Education completed by another RN: NoElectronically Signed By Ava Mercado RN In Department: AMBULATORYSURGERY [facility] CNOVon 06-05-2017 CNOV Office Visit (PAINLN) -ANGELESTOMAS M ([id number]) 1940 MDate Time Provider Department06/05/17 9:15 AM ENEDELIA RUVALCABA During your visit today, we recorded the following information about you: Blood pressure Weight Height 110/60 98.9 kg 1.753 mPhilishane Ruvalcaba MD 06/05/2017 4:28 PM SignedMrBrittnee Reynoso a 76 year old male returns today for follow up of MRI results, he states that symptoms have improved.Patient states he has no pain today, has an inversion table and after doingthat pain went away, just has some stiffness here and there.PAIN:Pain Yes. Location: back pain, rates pain a 0 on a pain scale of 1-10. Patientdescribes pain as stffness, duration to the present time occuring only once danelle while.MEDICATIONS: Medications reviewed and verified.Current Outpatient Prescriptions:ASCORBIC ACID (VITAMIN C ORAL) Take by mouth once daily.MULTIVIT-MINERALS/FA/LY COPENE (ONE-A-DAY MEN'S ORAL) Take by mouth once daily.Red Yeast Rice Extract 600 mg cap Take by mouth.Levothyroxine 75 mcg cap Take by mouth.ezetimibe (ZETIA) 10 mg tablet Take 10 mg by mouth once daily.naproxen sodium (ALEVE) 220 mg cap Take 1 tablet by mouth twice daily.Omeprazole (PRILOSEC) 40 mg capsule Take 40 mg by mouth twice daily.No current facility-administered medications for this visit.Patient feels that medications have not used, only takes Aleve as neededPREVIOUS TREATMENTS LASTING SIX WEEKS IN THE LAST SIX MONTHSActive conservative therapy lasting 6 weeks in the last six months (see below) 1. Physical therapy: No 2. Home exercise program after PT: No 3. Occupational therapy: No 4. A physician supervised home exercise program (HEP): No 5. Rn Placement: NoPassive conservative therapy lasting 6 weeks in the last six months (see below) 1. Medical devises: No 2. Acupuncture: No 3. Tens unit: No 4. Prescription pain medication: No 5. NSAIDS: Yes: Started years ago Ended currently uses as neededTREATMENTS:AleveInversi on boardBack supportI agree with the Chief Complaint, ROS, and Past Histories independentlygathered by the clinical support services manager annotations made and the remaining noteaccurately describes my personal service to the patient.SONALI Archer-CIMAGIN05/13/2017 11:08 AM - Interface, Results InImpressionIMPRESSION:Marked thoracolumbar dextroscoliosis centered at L1.No significant thoracic canal or foraminal narrowing.Multilevel degenerative changes of the lumbar spine with mild-moderatecanal stenosis at L2-3 and multilevel mild to moderate neural foraminalnarrowing as detailed.Check Totaler: KALYAN ?Transcribe Date/Time: May 13 2017 ?9:55ADictated by : NANDO MITCHELL MDThis examination was interpreted and the report reviewed andelectronically signed by:GABRIEL PHILLIPS MD on May 13 2017 11:02AM ?ESTResults-Findings* * *Final Report* * *DATE OF EXAM: May 13 2017 ?9:27AM ?CHM ? 0303 ?- ?MRI LUMBAR SPINE WO IVCON ?/ REASON: multiple diagnoses?? ?* * * * Physician Interpretation * * * *?MRI LUMBAR SPINE WO IVCON, MRI THORACIC SPINE WO IVCONHISTORY: ?Scoliosis and lumbar region radiculopathy. ?Scoliosis,unspecified.COMPAR LEELEE: Lumbar and scoliosis radiograph 04/30/2017TECHNIQUE: Routine thoracic, and lumbosacral spine MR protocol withoutgadolinium.RESULT:Scou t image demonstrates reversal of the cervical lordosis centered at C4with mild canal narrowing at C4-5 and C5-C6.MR THORACIC:Counting reference: ?Lumbosacral junction. For the purposes of thisreport, L4-5 is considered the level of the iliac crest.Alignment: ? ?Mild grade 1 stepwise anterolisthesis from C7-T5. ?Dextroscoliosis of the upper lumbar and lower thoracic spine.Cord: ?The thoracic spinal cord is within normal limits of signalintensity and morphology.Bone marrow signal/fracture: ? ?T2 and T5 hemangiomas. ?Degenerativeendplate changes with endplate irregularity and multilevel Schmorl'snodes. ?Vertebral body heights are maintained. ?No evidence of priorfracture.Thoracic soft tissues: ? ?The paraspinal soft tissues are within normallimits. ?Small hiatal hernia.Canal and foramina: ? Small disc bulges at T2-T3, T3-T4, T8-T9, T9-T10and T10-T11 without impact upon the cord. ?No significant canalnarrowing. ?Foramina appear patent.MR LUMBAR:Counting reference: ?Lumbosacral junction. ?For the purposes of thisreport, L4-5 is considered the level of the iliac crest.Alignment: ? ?Marked dextroscoliosis centered at L1, seen on priorimaging. ?Mild to moderate right lateral listhesis of L2 on L3. ?Mildleft lateral listhesis of T12 on L1 and L4-L5. ?Mild retrolisthesis ofT12 on L1 and L3 on L4.Bone marrow signal/fracture: ? ?Multilevel vertebral disc space narrowingwith endplate irregularity and hypertrophic changes. ?Endplatedegenerative change with type I marrow signal greater greatest at L2-3,also at L1-2 on the left, for on the right and L5-S1 bilaterally. ?Noevidence of prior fracture.Conus: ? ?The conus is within normal limits of signal intensity andmorphology terminating at L1.Paraspinal soft tissues: ? ?Paraspinal soft tissues are within normallimits.T12-L1: ?Mild disc bulge without significant canal narrowing. ?Rightforamen appears patent. ?Mild left foraminal narrowing.L1-L2: ? ?Marked loss of disc height on the left, and a disc bulgeeccentric to the left. ?No significant canal stenosis. ?Mild left neuralforaminal narrowing. ?No significant right neural foraminal narrowing.L2-L3: ? ?Degenerative endplate marrow changes, and marked loss of discheight on the left. ?Diffuse disc bulge eccentric to the left. ?Ligamentum flavum and facet hypertrophy are present. ?Findings contributeto mild/moderate canal stenosis. ?There is moderate left neural foraminalnarrowing. ?No significant right neural foraminal narrowing.L3-L4: ? ?Endplate degenerative change and loss of disc height centrally,with a diffuse disc bulge. ?Mild ligamentum flavum and facet hypertrophy.?Findings contribute to mild canal stenosis. ?Mild bilateral neuralforaminal narrowing.L4-L5: ? ?Marked loss of disc height on the right with partial interbodyfusion. ?Diffuse disc osteophyte complex, without significant canalstenosis. ?Endplate and facet hypertrophy result in moderate right andmild left neural foraminal narrowing.L5-S1: ? ?Loss of disc height and a disc bulge, without significant canalstenosis. ?Endplate and facet degenerative change. ?Mild bilateral neuralforaminal narrowing.Sacrum and iliac wings: ? ?Degenerative changes in the visualizedbilateral sacroiliac joints.EXAM:BP 110/60 Ht 175.3 cm (5' 9ANDquot;) Wt 98.9 kg (218 lb) BMI 32.19 kg/m2No acute distress noted, patient alert and oriented X's 3.Gait WNLIMPRESSION:Pt here with his son for MRI results. He states the left side back painradiating to LLQ and groin has resolved since last office visit. He attributesit to using an inversion board. He remains very active. He continues to c/oback pain LANDgt;R with prolonged standing/walking that is relieved with sitting. Options discussed and pt and his son elect to proceed with scheduling aninjectonScoliosis of thoracolumbar spine, unspecified scoliosis type (primaryencounter diagnosis)Left lumbar radiculopathySpinal stenosis, lumbarDdd (degenerative disc disease), lumbarPLAN:Continue conservative mgmt (physical activity as tolerated and NSAIprn/tolerated)If symptoms return and/or increased limitations are persistent may call lisette PARKER L3-L4# (left paramedian)RTC as neededThe patient and his sonverbalized agreement/understanding of today's plan. Allquestions answered.The patient is seen and examined by Dr. Ruvalcaba and the following reflects hisservice. Scribed by SONALI Guerra-Randall Note:Ruby findings confirmed. Patient examined. Discussed with the physicianassistant and the patient. Plan as outlined.Enedelia Ruvalcaba, AURAefaubrie Provider: SELF [200]Allergies As of Date: 06/05/2017(No Known Allergies)Date Reviewed: 06/05/2017Reviewed by: Danuta Davila Ma - Fully AssessedReason for Visit: Follow Up [171] Cmt: MRI resultsPrimary Visit Diagnosis:Scoliosis of thoracolumbar spine, unspecified scoliosis type [M41.9] Other Visit Diagnoses:Left lumbar radiculopathy [M54.16] Spinal stenosis, lumbar [M48.06] DDD (degenerative disc disease), lumbar [M51.36]Order(s):SURGICAL REQUEST - ELECTIVE [[id number]] Order #: [id number]: 1Prescriptions as of 06/05/2017 Sig: VITAMIN C ORAL Take by mouth once daily. ONE-A-DAY MEN'S ORAL Take by mouth once daily. RED YEAST RICE 600 MG CAPSULE Take by mouth. LEVOTHYROXINE 75 MCG CAPSULE Take by mouth. EZETIMIBE 10 MG TABLET Take 10 mg by mouth once gabriel* NAPROXEN SODIUM 220 MG CAPSULE Take 1 tablet by mouth twice * OMEPRAZOLE 40 MG CAPSULE,PRESTON* Take 40 mg by mouth twice zach*Problem List As Of Date 06/05/2017 Noted Resolved Hiatal hernia with GERD [K21.9, K44.9] INVALID FOR* Hypothyroid [E03.9] Generalized OA [M15.9] Left lumbar radiculopathy [M54.16] INVALID FOR* Scoliosis of thoracolumbar spine [M41.9] INVALID FOR* Status:Closed by ENEDELIA RUVALCABA MD on 06/05/[address] [facility] 06-05-2017 HOSP Patient:Tomas Reynoso MMRN: Height:5' 9 (1.753 m)Weight:218 lb (98.884 kg)Outpatient Medications as of 06/20/17:ASCORBIC ACID (VITAMIN C ORAL)MULTIVIT-MINERALS/FA/LYC OPENE (ONE-A-DAY MEN'S ORAL)Levothyroxine 75 mcg capezetimibe (ZETIA) 10 mg tabletnaproxen sodium (ALEVE) 220 mg capOmeprazole (PRILOSEC) 40 mg capsuleRed Yeast Rice Extract 600 mg capAdmission/Clinic Administered Medications as of 06/20/17:NaCl 0.9% iv infusionProblem List:Hiatal hernia with GERD [K21.9, K44.9]Hypothyroid [E03.9]Generalized OA [M15.9]Left lumbar radiculopathy [M54.16]Scoliosis of thoracolumbar spine [M41.9]Allergies:No Known AllergiesDate Verified:06/20/17Lab ValuesNo results within the last 30 days for the following basenames: K,HCTProgress Notes (PAIN [facility]):Enedelia Ruvalcaba MD 06/05/2017 4:28 PM SignedMr. Angeles a 76 year old male returns today for follow up of MRI results, hestates that symptoms have improved.Patient states he has no pain today, has an inversion table and after doing thatpain went away, just has some stiffness here and there.PAIN:Pain Yes. Location: back pain, rates pain a 0 on a pain scale of 1-10. Patientdescribes pain as stffness, duration to the present time occuring only once in awhile.MEDICATIONS: Medications reviewed and verified.Current Outpatient Prescriptions:ASCORBIC ACID (VITAMIN C ORAL) Take by mouth once daily.MULTIVIT-MINERALS/FA/LY COPENE (ONE-A-DAY MEN'S ORAL) Take by mouth once daily.Red Yeast Rice Extract 600 mg cap Take by mouth.Levothyroxine 75 mcg cap Take by mouth.ezetimibe (ZETIA) 10 mg tablet Take 10 mg by mouth once daily.naproxen sodium (ALEVE) 220 mg cap Take 1 tablet by mouth twice daily.Omeprazole (PRILOSEC) 40 mg capsule Take 40 mg by mouth twice daily.No current facility-administered medications for this visit.Patient feels that medications have not used, only takes Aleve as neededPREVIOUS TREATMENTS LASTING SIX WEEKS IN THE LAST SIX MONTHSActive conservative therapy lasting 6 weeks in the last six months (see below) 1. Physical therapy: No 2. Home exercise program after PT: No 3. Occupational therapy: No 4. A physician supervised home exercise program (HEP): No 5. Rn Placement: NoPassive conservative therapy lasting 6 weeks in the last six months (see below) 1. Medical devises: No 2. Acupuncture: No 3. Tens unit: No 4. Prescription pain medication: No 5. NSAIDS: Yes: Started years ago Ended currently uses as neededTREATMENTS:AleveInversi on boardBack supportI agree with the Chief Complaint, ROS, and Past Histories independently gatheredby the clinical support services manager annotations made and the remaining noteaccurately describes my personal service to the patient.SONALI Archer-CIMAGIN05/13/2017 11:08 AM - Interface, Results InImpressionIMPRESSION:Marked thoracolumbar dextroscoliosis centered at L1.No significant thoracic canal or foraminal narrowing.Multilevel degenerative changes of the lumbar spine with mild-moderatecanal stenosis at L2-3 and multilevel mild to moderate neural foraminalnarrowing as detailed.Check Totaler: KALYAN ?Transcribe Date/Time: May 13 2017 ?9:55ADictated by : NANDO MITCHELL MDThis examination was interpreted and the report reviewed andelectronically signed by:GABRIEL PHILLIPS MD on May 13 2017 11:02AM ?ESTResults-Findings* * *Final Report* * *DATE OF EXAM: May 13 2017 ?9:27AM ?CHM ? 0303 ?- ?MRI LUMBAR SPINE WO IVCON ?/ REASON: multiple diagnoses?? ?* * * * Physician Interpretation * * * *?MRI LUMBAR SPINE WO IVCON, MRI THORACIC SPINE WO IVCONHISTORY: ?Scoliosis and lumbar region radiculopathy. ?Scoliosis,unspecified.COMPAR LEELEE: Lumbar and scoliosis radiograph 04/30/2017TECHNIQUE: Routine thoracic, and lumbosacral spine MR protocol withoutgadolinium.RESULT:Scou t image demonstrates reversal of the cervical lordosis centered at C4with mild canal narrowing at C4-5 and C5-C6.MR THORACIC:Counting reference: ?Lumbosacral junction. For the purposes of thisreport, L4-5 is considered the level of the iliac crest.Alignment: ? ?Mild grade 1 stepwise anterolisthesis from C7-T5. ?Dextroscoliosis of the upper lumbar and lower thoracic spine.Cord: ?The thoracic spinal cord is within normal limits of signalintensity and morphology.Bone marrow signal/fracture: ? ?T2 and T5 hemangiomas. ?Degenerativeendplate changes with endplate irregularity and multilevel Schmorl'snodes. ?Vertebral body heights are maintained. ?No evidence of priorfracture.Thoracic soft tissues: ? ?The paraspinal soft tissues are within normallimits. ?Small hiatal hernia.Canal and foramina: ? Small disc bulges at T2-T3, T3-T4, T8-T9, T9-T10and T10-T11 without impact upon the cord. ?No significant canalnarrowing. ?Foramina appear patent.MR LUMBAR:Counting reference: ?Lumbosacral junction. ?For the purposes of thisreport, L4-5 is considered the level of the iliac crest.Alignment: ? ?Marked dextroscoliosis centered at L1, seen on priorimaging. ?Mild to moderate right lateral listhesis of L2 on L3. ?Mildleft lateral listhesis of T12 on L1 and L4-L5. ?Mild retrolisthesis ofT12 on L1 and L3 on L4.Bone marrow signal/fracture: ? ?Multilevel vertebral disc space narrowingwith endplate irregularity and hypertrophic changes. ?Endplatedegenerative change with type I marrow signal greater greatest at L2-3,also at L1-2 on the left, for on the right and L5-S1 bilaterally. ?Noevidence of prior fracture.Conus: ? ?The conus is within normal limits of signal intensity andmorphology terminating at L1.Paraspinal soft tissues: ? ?Paraspinal soft tissues are within normallimits.T12-L1: ?Mild disc bulge without significant canal narrowing. ?Rightforamen appears patent. ?Mild left foraminal narrowing.L1-L2: ? ?Marked loss of disc height on the left, and a disc bulgeeccentric to the left. ?No significant canal stenosis. ?Mild left neuralforaminal narrowing. ?No significant right neural foraminal narrowing.L2-L3: ? ?Degenerative endplate marrow changes, and marked loss of discheight on the left. ?Diffuse disc bulge eccentric to the left. ?Ligamentum flavum and facet hypertrophy are present. ?Findings contributeto mild/moderate canal stenosis. ?There is moderate left neural foraminalnarrowing. ?No significant right neural foraminal narrowing.L3-L4: ? ?Endplate degenerative change and loss of disc height centrally,with a diffuse disc bulge. ?Mild ligamentum flavum and facet hypertrophy.?Findings contribute to mild canal stenosis. ?Mild bilateral neuralforaminal narrowing.L4-L5: ? ?Marked loss of disc height on the right with partial interbodyfusion. ?Diffuse disc osteophyte complex, without significant canalstenosis. ?Endplate and facet hypertrophy result in moderate right andmild left neural foraminal narrowing.L5-S1: ? ?Loss of disc height and a disc bulge, without significant canalstenosis. ?Endplate and facet degenerative change. ?Mild bilateral neuralforaminal narrowing.Sacrum and iliac wings: ? ?Degenerative changes in the visualizedbilateral sacroiliac joints.EXAM:BP 110/60 Ht 175.3 cm (5' 9 ) Wt 98.9 kg (218 lb) BMI 32.19 kg/m2No acute distress noted, patient alert and oriented X's 3.Gait WNLIMPRESSION:Pt here with his son for MRI results. He states the left side back painradiating to LLQ and groin has resolved since last office visit. He attributesit to using an inversion board. He remains very active. He continues to c/oback pain L>R with prolonged standing/walking that is relieved with sitting.Options discussed and pt and his son elect to proceed with scheduling aninjectonScoliosis of thoracolumbar spine, unspecified scoliosis type (primary encounterdiagnosis)Left lumbar radiculopathySpinal stenosis, lumbarDdd (degenerative disc disease), lumbarPLAN:Continue conservative mgmt (physical activity as tolerated and NSAIprn/tolerated)If symptoms return and/or increased limitations are persistent may call lisette PARKER L3-L4# (left paramedian)RTC as neededThe patient and his sonverbalized agreement/understanding of today's plan. Allquestions answered.The patient is seen and examined by Dr. Ruvalcaba and the following reflects hisservice. Scribed by Miguel Guerra Note:Ruby findings confirmed. Patient examined. Discussed with the physicianassistant and the patient. Plan as outlined.Enedelia Ruvalcaba, MDPrevious Version Normal [facility] PROGRESSon 06-05-2017 PROGRESS HNO ID: [id number] thor: Enedelia Gottiervice: (none)Author Type: PhysicianType: Progress NotesFiled: 06/05/2017 4:28 PMNote Text:Mr. Reynoso a 76 year old male returns today for follow up of MRIresults, he states that symptoms have improved.Patient states he has no pain today, has an inversion table and afterdoing that pain went away, just has some stiffness here and there.PAIN:Pain Yes. Location: back pain, rates pain a 0 on a pain scale of 1-10.Patient describes pain as stffness, duration to the present time occuringonly once in a while.MEDICATIONS: Medications reviewed and verified.Current Outpatient Prescriptions:ASCORBIC ACID (VITAMIN C ORAL) Take by mouth once daily.MULTIVIT-MINERALS/FA/LY COPENE (ONE-A-DAY MEN'S ORAL) Take by mouth oncedaily.Red Yeast Rice Extract 600 mg cap Take by mouth.Levothyroxine 75 mcg cap Take by mouth.ezetimibe (ZETIA) 10 mg tablet Take 10 mg by mouth once daily.naproxen sodium (ALEVE) 220 mg cap Take 1 tablet by mouth twice daily.Omeprazole (PRILOSEC) 40 mg capsule Take 40 mg by mouth twice daily.No current facility-administered medications for this visit.Patient feels that medications have not used, only takes Aleve as neededPREVIOUS TREATMENTS LASTING SIX WEEKS IN THE LAST SIX MONTHSActive conservative therapy lasting 6 weeks in the last six months (seebelow) 1. Physical therapy: No 2. Home exercise program after PT: No 3. Occupational therapy: No 4. A physician supervised home exercise program (HEP): No 5. Rn Placement: NoPassive conservative therapy lasting 6 weeks in the last six months (seebelow) 1. Medical devises: No 2. Acupuncture: No 3. Tens unit: No 4. Prescription pain medication: No 5. NSAIDS: Yes: Started years ago Ended currently uses as neededTREATMENTS:Jeremie on boardBack supportI agree with the Chief Complaint, ROS, and Past Histories independentlygathered by the clinical support services manager annotations made and the remainingnote accurately describes my personal service to the patient.SONALI Archer-CIMAGIN05/13/2017 11:08 AM - Interface, Results InImpressionIMPRESSION:Marked thoracolumbar dextroscoliosis centered at L1.No significant thoracic canal or foraminal narrowing.Multilevel degenerative changes of the lumbar spine with mild-moderatecanal stenosis at L2-3 and multilevel mild to moderate neural foraminalnarrowing as detailed.Check Totaler: KALYAN ?Transcribe Date/Time: May 13 2017 ?9:55ADictated by : NANDO MITCHELL MDThimonica examination was interpreted and the report reviewed andelectronically signed by:GABRIEL PHILLIPS MD on May 13 2017 11:02AM ?ESTResults-Findings* * *Final Report* * *DATE OF EXAM: May 13 2017 ?9:27AM ?[facility] ? 0303 ?- ?MRI LUMBAR SPINE WO IVCON ?/ REASON: multiple diagnoses?? ?* * * * Physician Interpretation * * * *?MRI LUMBAR SPINE WO IVCON, MRI THORACIC SPINE WO IVCONHISTORY: ?Scoliosis and lumbar region radiculopathy. ?Scoliosis,unspecified.COMPAR LEELEE: Lumbar and scoliosis radiograph 04/30/2017TECHNIQUE: Routine thoracic, and lumbosacral spine MR protocol withoutgadolinium.RESULT:Scou t image demonstrates reversal of the cervical lordosis centered at C4with mild canal narrowing at C4-5 and C5-C6.MR THORACIC:Counting reference: ?Lumbosacral junction. For the purposes of thisreport, L4-5 is considered the level of the iliac crest.Alignment: ? ?Mild grade 1 stepwise anterolisthesis from C7-T5. ?Dextroscoliosis of the upper lumbar and lower thoracic spine.Cord: ?The thoracic spinal cord is within normal limits of signalintensity and morphology.Bone marrow signal/fracture: ? ?T2 and T5 hemangiomas. ?Degenerativeendplate changes with endplate irregularity and multilevel Schmorl'snodes. ?Vertebral body heights are maintained. ?No evidence of priorfracture.Thoracic soft tissues: ? ?The paraspinal soft tissues are within normallimits. ?Small hiatal hernia.Canal and foramina: ? Small disc bulges at T2-T3, T3-T4, T8-T9, T9-T10and T10-T11 without impact upon the cord. ?No significant canalnarrowing. ?Foramina appear patent.MR LUMBAR:Counting reference: ?Lumbosacral junction. ?For the purposes of thisreport, L4-5 is considered the level of the iliac crest.Alignment: ? ?Marked dextroscoliosis centered at L1, seen on priorimaging. ?Mild to moderate right lateral listhesis of L2 on L3. ?Mildleft lateral listhesis of T12 on L1 and L4-L5. ?Mild retrolisthesis ofT12 on L1 and L3 on L4.Bone marrow signal/fracture: ? ?Multilevel vertebral disc space narrowingwith endplate irregularity and hypertrophic changes. ?Endplatedegenerative change with type I marrow signal greater greatest at L2-3,also at L1-2 on the left, for on the right and L5-S1 bilaterally. ?Noevidence of prior fracture.Conus: ? ?The conus is within normal limits of signal intensity andmorphology terminating at L1.Paraspinal soft tissues: ? ?Paraspinal soft tissues are within normallimits.T12-L1: ?Mild disc bulge without significant canal narrowing. ?Rightforamen appears patent. ?Mild left foraminal narrowing.L1-L2: ? ?Marked loss of disc height on the left, and a disc bulgeeccentric to the left. ?No significant canal stenosis. ?Mild left neuralforaminal narrowing. ?No significant right neural foraminal narrowing.L2-L3: ? ?Degenerative endplate marrow changes, and marked loss of discheight on the left. ?Diffuse disc bulge eccentric to the left. ?Ligamentum flavum and facet hypertrophy are present. ?Findings contributeto mild/moderate canal stenosis. ?There is moderate left neural foraminalnarrowing. ?No significant right neural foraminal narrowing.L3-L4: ? ?Endplate degenerative change and loss of disc height centrally,with a diffuse disc bulge. ?Mild ligamentum flavum and facet hypertrophy.?Findings contribute to mild canal stenosis. ?Mild bilateral neuralforaminal narrowing.L4-L5: ? ?Marked loss of disc height on the right with partial interbodyfusion. ?Diffuse disc osteophyte complex, without significant canalstenosis. ?Endplate and facet hypertrophy result in moderate right andmild left neural foraminal narrowing.L5-S1: ? ?Loss of disc height and a disc bulge, without significant canalstenosis. ?Endplate and facet degenerative change. ?Mild bilateral neuralforaminal narrowing.Sacrum and iliac wings: ? ?Degenerative changes in the visualizedbilateral sacroiliac joints.EXAM:BP 110/60 Ht 175.3 cm (5' 9 ) Wt 98.9 kg (218 lb) BMI 32.19 kg/m2No acute distress noted, patient alert and oriented X's 3.Gait WNLIMPRESSION:Pt here with his son for MRI results. He states the left side back painradiating to LLQ and groin has resolved since last office visit. Heattributes it to using an inversion board. He remains very active. Hecontinues to c/o back pain L>R with prolonged standing/walking that isrelieved with sitting. Options discussed and pt and his son elect toproceed with scheduling an injectonScoliosis of thoracolumbar spine, unspecified scoliosis type (primaryencounter diagnosis)Left lumbar radiculopathySpinal stenosis, lumbarDdd (degenerative disc disease), lumbarPLAN:Continue conservative mgmt (physical activity as tolerated and NSAIprn/tolerated)If symptoms return and/or increased limitations are persistent may call lisette PARKER L3-L4# (left paramedian)RTC as neededThe patient and his sonverbalized agreement/understanding of today's plan. All questions answered.The patient is seen and examined by Dr. Ruvalcaba and the followingreflects his service. Scribed by Miguel Guerra Note:Ruby findings confirmed. Patient examined. Discussed with the physicianassistant and the patient. Plan as outlined.Enedelia Ruvalcaba MD [facility] Vital Signs Date Time Vital Sign Value Performing Clinician Faci lity 12-18-2023 15:09-0500 Body height 180.3 cm Anusha [employer] Phone: [facility] 12-18-2023 15:09-0500 Body mass index (BMI) [Ratio] 31.72 kg/m2 Anusha [employer] Phone: [facility] 12-18-2023 15:09-0500 Body weight 103.15 kg Anusha Hdez [employer] Phone: [facility] 12-18-2023 15:09-0500 Diastolic blood pressure 68 mm[Hg] Anusha [employer] Phone: [facility] 12-18-2023 15:09-0500 Heart rate 70 /min Anusha Hdez [employer] Phone: [facility] 12-18-2023 15:09-0500 SaO2% (BldA) [Mass fraction] 96 % Anusha [employer] Phone: [facility] 12-18-2023 15:09-0500 Systolic blood pressure 132 mm[Hg] Anusha Hdez DO Work Phone: [facility] 12-08-2023 15:16-0500 Blood Pressure Location Piter KRUSE [facility] 12-08-2023 15:16-0500 Diastolic blood pressure 78 mm[Hg] Piter KRUSE [facility] 12-08-2023 15:16-0500 Heart rate 70 /min Piter KRUSE [facility] 12-08-2023 15:16-0500 Respiratory rate 16 /min Piter KRUSE [facility] 12-08-2023 15:16-0500 Systolic blood pressure 121 mm[Hg] Piter KRUSE [facility] 11-26-2023 12:09-0500 Body mass index (BMI) [Ratio] 31.24 kg/m2 Demarco Rebolledo MD Work Phone: [facility] 11-26-2023 12:09-0500 Body weight 101.61 kg Demarco Rebolledo MD Work Phone: [facility] 11-26-2023 12:09-0500 Diastolic blood pressure 68 mm[Hg] Demarco Rebolledo MD Work Phone: [facility] 11-26-2023 12:09-0500 Heart rate 72 /min Demarco Rebolledo MD Work Phone: [facility] 11-26-2023 12:09-0500 Respiratory rate 18 /min Demarco Rebolledo MD Work Phone: [facility] 11-26-2023 12:09-0500 SaO2% (BldA) [Mass fraction] 95 % Demarco Rebolledo MD Work Phone: [facility] 11-26-2023 12:09-0500 Systolic blood pressure 104 mm[Hg] Demarco Rebolledo MD Work Phone: [facility] 12-09-2022 10:49-0500 Blood Pressure Location Piter KRUSE [facility] 12-09-2022 10:49-0500 Diastolic blood pressure 81 mm[Hg] Piter KRUSE [facility] 12-09-2022 10:49-0500 Heart rate 76 /min Piter KRUSE [facility] 12-09-2022 10:49-0500 Respiratory rate 16 /min Piter KRUSE [facility] 12-09-2022 10:49-0500 Systolic blood pressure 107 mm[Hg] Piter KRUSE [facility] 08-16-2022 13:36-0400 Blood Pressure Location Lj Xavier [facility] 08-16-2022 13:36-0400 Diastolic blood pressure 83 mm[Hg] Lj Xavier [facility] 08-16-2022 13:36-0400 Heart rate 72 /min Lj Xavier [facility] 08-16-2022 13:36-0400 Respiratory rate 16 /min Lj Xavier [facility] 08-16-2022 13:36-0400 Systolic blood pressure 114 mm[Hg] Lj Xavier [facility] 04-19-2022 10:57-0400 Blood Pressure Location Piter KRUSE [facility] 04-19-2022 10:57-0400 Diastolic blood pressure 76 mm[Hg] Piterfrida KRUSE [facility] 04-19-2022 10:57-0400 Heart rate 72 /min Piterfrida KRUSE [facility] 04-19-2022 10:57-0400 Respiratory rate 16 /min Piter KRUSE [facility] 04-19-2022 10:57-0400 Systolic blood pressure 118 mm[Hg] Piter KRUSE [facility] Encounters Encounter Date Encounter Type Care Provider Facility Start: 01-19-2024 ambulatory Piter Carlsoni ty:CD:[id number] Start: 12-18-2023 End: 12-18-2023 ambulatory [facility] Start: 12-18-2023 End: 12-18-2023 Office outpatient visit 25 minutes [facility] Work Phone: [facility] Comment on above: DURGA (obstructive sle ep apnea) (Primary Dx); SOB (shortness of breath); Restrictive pattern present on pulmonary function testing Start: 12-16-2023 End: 12-17-2023 ambulatory [facility] Start: 12-11-2023 Orders Only Brittany [facility] Comment on above: Interstitial lung di sease (CMS-HCC) (Primary Dx) Start: 12-08-2023 End: 12-09-2023 ambulatory LEONARDA FINK Facility:[facility] Start: 12-08-2023 End: 12-08-2023 Patient encounter procedure Piter KRUSE [facility] Start: 11-28-2023 Orders Only Mable Radames [facility] Comment on above: SOB (shortness of br eath) (Primary Dx) Start: 11-26-2023 End: 11-26-2023 ambulatory DEMARCO REBOLLEDO [facility] Start: 11-26-2023 End: 11-26-2023 Office consultation new/estab patient 30 min Demarco Rebolledo MD Work Phone: [facility] Comment on above: 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[facility]) Start: 11-14-2023 End: 11-14-2023 ambulatory NICK MCCOY Not Available Start: 10-09-2023 End: 10-09-2023 ambulatory CARMITA LARA Not Available Start: 10-06-2023 End: 10-06-2023 ambulatory LEONARDA Cornel FINK Not Available Start: 03-14-2023 End: 03-15-2023 ambulatory LEONARDA DANAE Facility:[facility] Start: 12-09-2022 End: 12-09-2022 Patient encounter procedure Piter KRUSE [facility] Start: 08-16-2022 End: 08-16-2022 Patient encounter procedure Lj Xavier [facility] Start: 05-29-2022 End: 05-29-2022 Lab Drop off Lj Xavier [facility] Start: 05-29-2022 End: 05-29-2022 Patient encounter procedure Ria Scott [facility] Start: 04-19-2022 End: 04-19-2022 Patient encounter procedure Piter KRUSE [facility] Start: 03-26-2022 End: 03-26-2022 Patient encounter procedure Demarco Valentin Jr. [facility] Start: 03-19-2022 End: 03-19-2022 Patient encounter procedure Piter KRUSE [facility] Start: 12-20-2021 End: 12-20-[address] DOCTOR PINA Facility:[facility] Start: 10-30-2021 End: 10-30-2021 ambulatory SVETLANA DIMAS Facility:[facility] Start: 08-08-2017 End: 08-08-2017 Ambulatory MICAELA SALINAS) [facility] Start: 06-20-2017 End: 06-20-2017 Ambulatory ENEDELIA RUVALCABA [facility] Start: 06-05-2017 End: 06-06-2017 [facility] Start: 04-30-2017 Ambulatory MICAELA (SONALI) [facility] Procedures Date Procedure Procedure Detail Performing Clinician Start: 12-18-2023 Follow-up visit Follow-up ANUSHA HDEZ Start: 10-31-2022 Colonoscopy Demarco mejía MD Work Phone: Start: 11-24-2021 Transurethral water vapor ablation of prostate Piter KRUSE Arthroplasty of knee Piter KRUSE Colonoscopy Piter KRUSE Esophageal hiatus he rnia repair Piterfrida KRUSE Plan of Treatment Date Care Activity Detail Author Start: 10-31-2027 Screening for malign ant neoplasm of colon Colonoscopy [facility] Start: 09-30-2027 DTaP,Tdap and Td Vaccines (4 - Td or Tdap) DTaP,Tdap and Td Vaccines (4 - Td or Tdap) [facility] Start: 12-18-2024 Adult BMI Screening Adult BMI Screen ing [facility] Start: 12-18-2024 Tobacco Screening Tobacco Screening [facility] Start: 11-26-2024 Adult BMI Screening Adult BMI Screen ing [facility] Start: 04-22-2024 End: 04-22-2024 Patient encounter procedure 04/22/2024 2:45 PM EDT Office Visit [facility] [place] [address] Anusha Hdez, DO [address] [address] [facility] Start: 03-06-2024 Adult BMI Screening Adult BMI Screen ing [facility] Start: 03-06-2024 Tobacco Screening Tobacco Screening [facility] Start: 12-18-2023 End: 12-18-2023 Patient encounter procedure 12/18/2023 3:00 PM EST Office Visit [facility] [place] [address] Anusha Hdez, DO [address] [address] [facility] Start: 12-16-2023 End: 12-16-2023 Patient encounter procedure 12/16/2023 10:30 AM EST Appointment [facility] - Pulmonary Function [address] [place] [address] Anusha Hdez, DO [address] [address] [facility] - Pulmonary Function Start: 07-25-2023 COVID-19 Vaccine (2022-24 season) COVID-19 Vaccine (2022- season) [facility] Start: 2006 Fall Risk Screening Fall Risk Screen ing [facility] Start: 1959 Adult BMI Follow Up Plan Adult BMI F ollow Up Plan [facility] Start: 1953 Depression Screening Depression Scre ening [facility] Start: 1941 Medicare Annual Well ness Visit Medicare Annual Wellness Visit [facility] End: 12-11-2024 Pulmonary function test Complete PFT w/ BD (Spirometry (Flow Volume Loop) pre/post short acting bronchodilator w/ DLCO (diffusion study) and Lung Volume) Pulmonary function test Complete PFT w/ BD (Spirometry (Flow Volume Loop) pre/post short acting bronchodilator w/ DLCO (diffusion study) and Lung Volume) PFT Routine Interstitial lung disease ([facility]) 1 Occurrences starting 12/11/2023 until 12/11/2024 [employer] Work Phone: Comment on above: 1 Occurrences starti ng 12/11/2023 until 12/11/2024 Immunizations Immunization Date Immunization Notes Care Provider Shahana javier 02-28-2021 SARS-CoV-2 (COVID-19 ) Ad26 vaccine, recombinant Piter KRUSE [facility] 01-04-2021 SARS-CoV-2 (COVID-19 ) Ad26 vaccine, recombinant Piter KRUSE [facility] 10-02-2020 influenza virus vaccine, unspecified formulation Piter KRUSE [facility] 09-30-2017 tetanus toxoid, redu estephanie diphtheria toxoid, and acellular pertussis vaccine, adsorbed Demarco Rebolledo MD Work Phone: [facility] Work Phone: Payers Date Payer Category Payer Unknown [id number] 2020 Unknown [employer] [id number] 2020-Present [phone] [address] [place] [address] [id number] 2006 Medicare MEDICARE MEDICAR E PART A & B [id number] 2006-Present [phone] [address] [place] [address] [id number] 1959 Medicare [id number] 1959 Medicare [id number] 1941 Unknown [id number] 1941 Unknown [id number] 1941 Unknown [id number] 1941 Unknown [id number] 1941 Unknown [id number] 1941 Unknown [id number] 1941 Unknown [id number] 1941 Unknown [id number] 1941 Unknown [id number] 1941 Unknown [id number] Social History Date Type Detail Facility Start: 12-31-2021 End: 10-07-2022 Tobacco smoking status Never smoked tobacco (finding) [facility] Start: 01-04-2021 End: 03-06-2023 Sex Assigned At Male [facility] Start: 10-07-2022 Tobacco use and exposure Smoke less tobacco non-user [facility] Start: 11-26-2023 End: 12-18-2023 Alcohol intake Current non-drinker of alcohol (finding) [facility] Start: 01-04-2021 End: 03-06-2023 History of Social function [facility] Housing Instability Unknown [facility] Start: 1940 Sex Assigned At Not on file P [facility] Functional Status Date Assessment Result Facility 12-08-2023 Functional Status N/A [facility] 12-09-2022 Functional Status N/A [facility] 08-16-2022 Functional Status N/A [facility] Cheri Clinical Notes 03-19-2022 to 12-18-2023 Anusha Hdez, - 12/18/2023 3:00 PM Risa Crum CMA - 11/28/2023 10:48 AM Olesya Rebolledo MD - 11/26/2023 12:15 PM EST Note Date & Type Note Facility 12-18-2023 History of Present illness Narrative Images from the original note were not included. [facility] Progress Note Patient - Tomas Reynoso Age - 83 [facility] 1940 [id number] ASSESSMENT 1. Abnormal HRCT with subtle interstitial prominence at bases. Possible early interstitial lung disease versus atelectasis 2. History of Rheumatoid Arthritis on chronic prednisone 3. History of MTX use for approx 2.5 years 4. DURGA - Dr. Choi 5. Dyspnea in setting of CAD, restrictive physiology. 6. Restrictive pattern on PFT 7. Large hiatal hernia 8. Dilated ascending aorta 4.5cm PLAN Complete PFT data reviewed today in clinic and compared to prior study in May 2023. There is no significant change. DLCO is normal with FVC 61%. Given stability of PFT data and pulmonary findings on CT chest it is unlikely that his dyspnea is related to progressive pulmonary disease. Continue p.r.n. albuterol Daily walking program advised Patient given sample of Zoila to use 1 puff daily. Will use this for 4 weeks. If any significantly perceived respiratory benefit, he will call the office and we will proceed with prescription or additional samples if needed Continue Singulair, albuterol HFA Return to clinic in 4 months or earlier if needed SUBJECTIVE Mr. Reynoso presents for follow-up for his possible early interstitial lung disease and dyspnea on exertion. He was last seen in February 2023. He also has obstructive sleep apnea that his historically been followed by a different physician. He typically perceives his dyspnea to occur when his hiatal hernia is acting up. He is referred back by Cardiothoracic surgery given his previous complaint of worsening shortness of breath however today he states that he is doing much better because his hiatal hernia is calm down . He does use albuterol intermittently. He is winded with walking 60-70 feet. He is still chops wood and gets winded with this activity. At present he does not feel that he has any real significant issue with his breathing. He does feel when he is heavily exerted he does wheeze softly at times. He does use the albuterol intermittently and it does help him at times. No recent respiratory infections or significant bronchitis or pneumonias since last office visit. No need for ER or urgent care VITALS BP 132/68 Pulse 70 Ht 180.3 cm (5' 11 ) Wt 103.1 kg (227 lb 6.4 oz) SpO2 96% BMI 31.72 kg/m Exam General: Alert, oriented, no acute distress, nontoxic HEENT: Moist mucosal membranes, no oral lesions or oral thrush, trachea midline Chest: Clear to auscultation bilaterally without any crackles, wheezes, rhonchi. Increased AP diameter. CV: Regular rate regular rhythm Extremities: No edema, erythema, distal cyanosis, clubbing Integumentary: Warm and dry. No rash or lesion Neuro: No lateralizing deficits. No tremors, antalgic gait Meds Medications Reviewed. Lab Results PFT Results Radiology CTA CHEST 10/15/23 History: Aneurysm of ascending aorta without rupture ([facility]) Procedure: Multidetector CT thoracic Angiogram performed with IV contrast without complication, including 3 -D Maximum intensity projection reconstructions constructed under concurrent physician supervision on a independent workstation to optimize vascular assessment. Automated exposure control was utilized. Comparison December 10 CT chest Findings: 3D reformatted images confirm the source data findings. Thoracic aortic maximum transverse measurements: Sinotubular junction 36.9 Mid ascending 43 mm. Mediastinum and gypsy show no acute findings. lungs demonstrate no acute findings Impression: * Stable mid ascending thoracic aortic aneurysm measuring 43 mm maximum currently. No acute findings * No acute pulmonary abnormality Dr. Anusha Hdez DO. [facility] Office: [phone] documented in this encounter [facility] [employer] 12-08-2023 Hospital Discharge instructions Patient Education 12/08/2023 16:06:41 Cystoscopy Cystoscopy Cystoscopy is a procedure that is used to help diagnose and sometimes treat conditions that affect the lower urinary tract. The lower urinary tract includes the bladder and the urethra. The urethra is the tube that drains urine from the bladder. Cystoscopy is done using a thin, tube-shaped instrument with a light and camera at the end (cystoscope). The cystoscope may be hard or flexible, depending on the goal of the procedure. The cystoscope is inserted through the urethra, into the bladder. Cystoscopy may be recommended if you have: Urinary tract infections that keep coming back. Blood in the urine (hematuria). An inability to control when you urinate (urinary incontinence) or an overactive bladder. Unusual cells found in a urine sample. A blockage in the urethra, such as a urinary stone. Painful urination. An abnormality in the bladder found during an intravenous pyelogram (IVP) or CT scan. Cystoscopy may also be done to remove a sample of tissue to be examined under a microscope (biopsy). Tell a health care provider about: Any allergies you have. All medicines you are taking, including vitamins, herbs, eye drops, creams, and xigq-aof-aoabtvo medicines. Any problems you or family members have had with anesthetic medicines. Any blood disorders you have. Any surgeries you have had. Any medical conditions you have. Whether you are or may be . What are the risks? Generally, this is a safe procedure. However, problems may occur, including: Infection. Bleeding. Allergic reactions to medicines. Damage to other structures or organs. What happens before the procedure? Medicines Ask your health care provider about: Changing or stopping your regular medicines. This is especially important if you are taking diabetes medicines or blood thinners. Taking medicines such as aspirin and ibuprofen. These medicines can thin your blood. Do not take these medicines unless your health care provider tells you to take them. Taking koue-lef-mkditzl medicines, vitamins, herbs, and supplements. Tests You may have an exam or testing, such as: X-rays of the bladder, urethra, or kidneys. CT scan of the abdomen or pelvis. Urine tests to check for signs of infection. General instructions Follow instructions from your health care provider about eating or drinking restrictions. Ask your health care provider what steps will be taken to help prevent infection. These steps may include: ?Washing skin with a germ-killing soap. ?Taking antibiotic medicine. Plan to have a responsible adult take you home from the hospital or clinic. What happens during the procedure? You will be given one or more of the following: ?A medicine to help you relax (sedative). ?A medicine to numb the area (local anesthetic). The area around the opening of your urethra will be cleaned. The cystoscope will be passed through your urethra into your bladder. Germ-free (sterile) fluid will flow through the cystoscope to fill your bladder. The fluid will stretch your bladder so that your health care provider can clearly examine your bladder carrillo. Your doctor will look at the urethra and bladder. Your doctor may take a biopsy or remove stones. The cystoscope will be removed, and your bladder will be emptied. The procedure may vary among health care providers and hospitals. What can I expect after the procedure? After the procedure, it is common to have: Some soreness or pain in your abdomen and urethra. Urinary symptoms. These include: ?Mild pain or burning when you urinate. Pain should stop within a few minutes after you urinate. This may last for up to 1 week. ?A small amount of blood in your urine for several days. ?Feeling like you need to urinate but producing only a small amount of urine. Follow these instructions at home: Medicines Take oxfp-nqc-bvjfepc and prescription medicines only as told by your health care provider. If you were prescribed an antibiotic medicine, take it as told by your health care provider. Do not stop taking the antibiotic even if you start to feel better. General instructions Return to your normal activities as told by your health care provider. Ask your health care provider what activities are safe for you. If you were given a sedative during the procedure, it can affect you for several hours. Do not drive or operate machinery until your health care provider says that it is safe. Watch for any blood in your urine. If the amount of blood in your urine increases, call your health care provider. Follow instructions from your health care provider about eating or drinking restrictions. If a tissue sample was removed for testing (biopsy) during your procedure, it is up to you to get your test results. Ask your health care provider, or the department that is doing the test, when your results will be ready. Drink enough fluid to keep your urine pale yellow. Keep all follow-up visits. This is important. Contact a health care provider if: You have pain that gets worse or does not get better with medicine, especially pain when you urinate. You have trouble urinating. You have more blood in your urine. Get help right away if: You have blood clots in your urine. You have abdominal pain. You have a fever or chills. You are unable to urinate. Summary Cystoscopy is a procedure that is used to help diagnose and sometimes treat conditions that affect the lower urinary tract. Cystoscopy is done using a thin, tube-shaped instrument with a light and camera at the end. After the procedure, it is common to have some soreness or pain in your abdomen and urethra. Watch for any blood in your urine. If the amount of blood in your urine increases, call your health care provider. If you were prescribed an antibiotic medicine, take it as told by your health care provider. Do not stop taking the antibiotic even if you start to feel better. This information is not intended to replace advice given to you by your health care provider. Make sure you discuss any questions you have with your health care provider. Document Revised: 07/24/2022 Document Reviewed: 06/22/2021 [employer] Patient Education 2022 [employer]. 12/08/2023 16:06:38 Hematuria, Adult Hematuria, Adult Hematuria is blood in the urine. Blood may be visible in the urine, or it may be identified with a test. This condition can be caused by infections of the bladder, urethra, kidney, or prostate. Other possible causes include: Kidney stones. Cancer of the urinary tract. Too much calcium in the urine. Conditions that are passed from parent to child (inherited conditions). Exercise that requires a lot of energy. Infections can usually be treated with medicine, and a kidney stone usually will pass through your urine. If neither of these is the cause of your hematuria, more tests may be needed to identify the cause of your symptoms. It is very important to tell your health care provider about any blood in your urine, even if it is painless or the blood stops without treatment. Blood in the urine, when it happens and then stops and then happens again, can be a symptom of a very serious condition, including cancer. There is no pain in the initial stages of many urinary cancers. Follow these instructions at home: Medicines Take upij-gow-beussqa and prescription medicines only as told by your health care provider. If you were prescribed an antibiotic medicine, take it as told by your health care provider. Do not stop taking the antibiotic even if you start to feel better. Eating and drinking Drink enough fluid to keep your urine pale yellow. It is recommended that you drink 3 4 quarts (2.8 3.8 L) a day. If you have been diagnosed with an infection, drinking cranberry juice in addition to large amounts of water is recommended. Avoid caffeine, tea, and carbonated beverages. These tend to irritate the bladder. Avoid alcohol because it may irritate the prostate (in males). General instructions If you have been diagnosed with a kidney stone, follow your health care provider's instructions about straining your urine to catch the stone. Empty your bladder often. Avoid holding urine for long periods of time. If you are female: ?After a bowel movement, wipe from front to back and use each piece of toilet paper only once. ?Empty your bladder before and after sex. Pay attention to any changes in your symptoms. Tell your health care provider about any changes or any new symptoms. It is up to you to get the results of any tests. Ask your health care provider, or the department that is doing the test, when your results will be ready. Keep all follow-up visits. This is important. Contact a health care provider if: You develop back pain. You have a fever or chills. You have nausea or vomiting. Your symptoms do not improve after 3 days. Your symptoms get worse. Get help right away if: You develop severe vomiting and are unable to take medicine without vomiting. You develop severe pain in your back or abdomen even though you are taking medicine. You pass a large amount of blood in your urine. You pass blood clots in your urine. You feel very weak or like you might faint. You faint. Summary Hematuria is blood in the urine. It has many possible causes. It is very important that you tell your health care provider about any blood in your urine, even if it is painless or the blood stops without treatment. Take ozgf-vdo-wkbbwqo and prescription medicines only as told by your health care provider. Drink enough fluid to keep your urine pale yellow. This information is not intended to replace advice given to you by your health care provider. Make sure you discuss any questions you have with your health care provider. Document Revised: 07/11/2021 Document Reviewed: 07/11/2021 [employer] Patient Education 2022 [employer]. Follow Up Care 03/14/2023 09:19:55 With:AIXA MARTIN, Piter Colon, URL Address: [facility] [address] , [place] [address]- [phone] When: Unknown Comments:sched cysto [facility] 12-08-2023 Note Urology Cystoscopy Cystoscopy is a procedure that is used to help diagnose and sometimes treat conditions that affect the lower urinary tract. The lower urinary tract includes the bladder and the urethra. The urethra is the tube that drains urine from the bladder. Cystoscopy is done using a thin, tube-shaped instrument with a light and camera at the end (cystoscope). The cystoscope may be hard or flexible, depending on the goal of the procedure. The cystoscope is inserted through the urethra, into the bladder. Cystoscopy may be recommended if you have: ? Urinary tract infections that keep coming back. ? Blood in the urine (hematuria). ? An inability to control when you urinate (urinary incontinence) or an overactive bladder. ? Unusual cells found in a urine sample. ? A blockage in the urethra, such as a urinary stone. ? Painful urination. ? An abnormality in the bladder found during an intravenous pyelogram (IVP) or CT scan. Cystoscopy may also be done to remove a sample of tissue to be examined under a microscope (biopsy). Tell a health care provider about: ? Any allergies you have. ? All medicines you are taking, including vitamins, herbs, eye drops, creams, and xhkd-pzp-rbyjzjz medicines. ? Any problems you or family members have had with anesthetic medicines. ? Any blood disorders you have. ? Any surgeries you have had. ? Any medical conditions you have. ? Whether you are or may be . What are the risks? Generally, this is a safe procedure. However, problems may occur, including: ? Infection. ? Bleeding. ? Allergic reactions to medicines. ? Damage to other structures or organs. What happens before the procedure? Medicines Ask your health care provider about: ? Changing or stopping your regular medicines. This is especially important if you are taking diabetes medicines or blood thinners. ? Taking medicines such as aspirin and ibuprofen. These medicines can thin your blood. Do not take these medicines unless your health care provider tells you to take them. ? Taking xiof-vrh-weylpha medicines, vitamins, herbs, and supplements. Tests You may have an exam or testing, such as: ? X-rays of the bladder, urethra, or kidneys. ? CT scan of the abdomen or pelvis. ? Urine tests to check for signs of infection. General instructions ? Follow instructions from your health care provider about eating or drinking restrictions. ? Ask your health care provider what steps will be taken to help prevent infection. These steps may include: ? Washing skin with a germ-killing soap. ? Taking antibiotic medicine. ? Plan to have a responsible adult take you home from the hospital or clinic. What happens during the procedure? ? You will be given one or more of the following: ? A medicine to help you relax (sedative). ? A medicine to numb the area (local anesthetic). ? The area around the opening of your urethra will be cleaned. ? The cystoscope will be passed through your urethra into your bladder. ? Germ-free (sterile) fluid will flow through the cystoscope to fill your bladder. The fluid will stretch your bladder so that your health care provider can clearly examine your bladder carrillo. ? Your doctor will look at the urethra and bladder. Your doctor may take a biopsy or remove stones. ? The cystoscope will be removed, and your bladder will be emptied. The procedure may vary among health care providers and hospitals. What can I expect after the procedure? After the procedure, it is common to have: ? Some soreness or pain in your abdomen and urethra. ? Urinary symptoms. These include: ? Mild pain or burning when you urinate. Pain should stop within a few minutes after you urinate. This may last for up to 1 week. ? A small amount of blood in your urine for several days. ? Feeling like you need to urinate but producing only a small amount of urine. Follow these instructions at home: Medicines ? Take aics-fjw-zkttueg and prescription medicines only as told by your health care provider. ? If you were prescribed an antibiotic medicine, take it as told by your health care provider. Do not stop taking the antibiotic even if you start to feel better. General instructions ? Return to your normal activities as told by your health care provider. Ask your health care provider what activities are safe for you. ? If you were given a sedative during the procedure, it can affect you for several hours. Do not drive or operate machinery until your health care provider says that it is safe. ? Watch for any blood in your urine. If the amount of blood in your urine increases, call your health care provider. ? Follow instructions from your health care provider about eating or drinking restrictions. ? If a tissue sample was removed for testing (biopsy) during your procedure, it is up to you to get your test results. Ask your health care provider, or the department th (more content not included)... [facility] 11-28-2023 History of Present illness Narrative Per Dr Rebolledo, patient needs an appt with [facility] History of Present illness Narrative CV surgery consult note I am asked to render opinion regarding an 82-year-old male who had a CT scan that he had a dilated aorta. I personally reviewed his scan and I measure 4.2 cm in the coronal section 4.4 cm in the sagittal section. The patient also told me that he has been progressively short of breath that has been going on for many years. He underwent a echo that showed that he has normal EF there was fqky-rh-chnfjjsa regurgitation cardiac catheterization shows a 40% and an IFR shows that this is not critical. With regards to his dilated aorta the patient informs me that he is never smoked nor does he have a history of aneurysms. He said his blood pressure typically runs low. He does split would during the wintertime for heat and we did talk about the need to abstain from repetitive lifting greater than 35 lb. I do not believe his shortness of breath is related from a cardiac issue. He has seen Dr. Hdez and I am going to have my office see if they can get a follow up appointment for further evaluation of his lung. He will need a CT scan in a year's time and we will go ahead and arrange that. documented in this encounter [facility] 12-09-2022 Hospital Discharge instructions Patient Education 12/09/2022 08:16:49 Benign Prostatic Hyperplasia Benign Prostatic Hyperplasia Benign prostatic hyperplasia (BPH) is an enlarged prostate gland that is caused by the normal aging process and not by cancer. The prostate is a walnut-sized gland that is involved in the production of semen. It is located in front of the rectum and below the bladder. The bladder stores urine and the urethra is the tube that carries the urine out of the body. The prostate may get bigger as a man gets older. An enlarged prostate can press on the urethra. This can make it harder to pass urine. The build-up of urine in the bladder can cause infection. Back pressure and infection may progress to bladder damage and kidney (renal) failure. What are the causes? This condition is part of a normal aging process. However, not all men develop problems from this condition. If the prostate enlarges away from the urethra, urine flow will not be blocked. If it enlarges toward the urethra and compresses it, there will be problems passing urine. What increases the risk? This condition is more likely to develop in men over the age of 50 years. What are the signs or symptoms? Symptoms of this condition include: Getting up often during the night to urinate. Needing to urinate frequently during the day. Difficulty starting urine flow. Decrease in size and strength of your urine stream. Leaking (dribbling) after urinating. Inability to pass urine. This needs immediate treatment. Inability to completely empty your bladder. Pain when you pass urine. This is more common if there is also an infection. Urinary tract infection (UTI). How is this diagnosed? This condition is diagnosed based on your medical history, a physical exam, and your symptoms. Tests will also be done, such as: A post-void bladder scan. This measures any amount of urine that may remain in your bladder after you finish urinating. A digital rectal exam. In a rectal exam, your health care provider checks your prostate by putting a lubricated, gloved finger into your rectum to feel the back of your prostate gland. This exam detects the size of your gland and any abnormal lumps or growths. An exam of your urine (urinalysis). A prostate specific antigen (PSA) screening. This is a blood test used to screen for prostate cancer. An ultrasound. This test uses sound waves to electronically produce a picture of your prostate gland. Your health care provider may refer you to a specialist in kidney and prostate diseases (urologist). How is this treated? Once symptoms begin, your health care provider will monitor your condition (active surveillance or watchful waiting). Treatment for this condition will depend on the severity of your condition. Treatment may include: Observation and yearly exams. This may be the only treatment needed if your condition and symptoms are mild. Medicines to relieve your symptoms, including: ?Medicines to shrink the prostate. ?Medicines to relax the muscle of the prostate. Surgery in severe cases. Surgery may include: ?Prostatectomy. In this procedure, the prostate tissue is removed completely through an open incision or with a laparoscope or robotics. ?Transurethral resection of the prostate (TURP). In this procedure, a tool is inserted through the opening at the tip of the penis (urethra). It is used to cut away tissue of the inner core of the prostate. The pieces are removed through the same opening of the penis. This removes the blockage. ?Transurethral incision (TUIP). In this procedure, small cuts are made in the prostate. This lessens the prostate's pressure on the urethra. ?Transurethral microwave thermotherapy (TUMT). This procedure uses microwaves to create heat. The heat destroys and removes a small amount of prostate tissue. ?Transurethral needle ablation (TUNA). This procedure uses radio frequencies to destroy and remove a small amount of prostate tissue. ?Interstitial laser coagulation (ILC). This procedure uses a laser to destroy and remove a small amount of prostate tissue. ?Transurethral electrovaporization (TUVP). This procedure uses electrodes to destroy and remove a small amount of prostate tissue. ?Prostatic urethral lift. This procedure inserts an implant to push the lobes of the prostate away from the urethra. Follow these instructions at home: Take gsiz-xrl-ddfogzv and prescription medicines only as told by your health care provider. Monitor your symptoms for any changes. Contact your health care provider with any changes. Avoid drinking large amounts of liquid before going to bed or out in public. Avoid or reduce how much caffeine or alcohol you drink. Give yourself time when you urinate. Keep all follow-up visits as told by your health care provider. This is important. Contact a health care provider if: You have unexplained back pain. Your symptoms do not get better with treatment. You develop side effects from the medicine you are taking. Your urine becomes very dark or has a bad smell. Your lower abdomen becomes distended and you have trouble passing your urine. Get help right away if: You have a fever or chills. You suddenly cannot urinate. You feel lightheaded, or very dizzy, or you faint. There are large amounts of blood or clots in the urine. Your urinary problems become hard to manage. You develop moderate to severe low back or flank pain. The flank is the side of your body between the ribs and the hip. These symptoms may represent a serious problem that is an emergency. Do not wait to see if the symptoms will go away. Get medical help right away. Call your local emergency services (911 in the [place] Do not drive yourself to the hospital. Summary Benign prostatic hyperplasia (BPH) is an enlarged prostate that is caused by the normal aging process and not by cancer. An enlarged prostate can press on the urethra. This can make it hard to pass urine. This condition is part of a normal aging process and is more likely to develop in men over the age of 50 years. Get help right away if you suddenly cannot urinate. This information is not intended to replace advice given to you by your health care provider. Make sure you discuss any questions you have with your health care provider. Document Released: 11/10/2006 Document Revised: 10/05/2019 Document Reviewed: 12/15/2017 [employer] Patient Education 2020 [employer]. Follow Up Care 07/22/2022 11:43:59 With:AIXA MARTIN, Piter Colon, CHARLY Address: [facility] [address] [place] [address]- When: Unknown [facility] [place] 08-16-2022 Hospital Discharge instructions Patient Education 08/16/2022 14:24:42 Abdominal Pain, Adult, Ntas-ev-Swla Abdominal Pain, Adult Many things can cause belly (abdominal) pain. Most times, belly pain is not dangerous. Many cases of belly pain can be watched and treated at home. Sometimes, though, belly pain is serious. Your doctor will try to find the cause of your belly pain. Follow these instructions at home: Medicines Take gmjr-ojo-mnrdseb and prescription medicines only as told by your doctor. Do not take medicines that help you poop (laxatives) unless told by your doctor. General instructions Watch your belly pain for any changes. Drink enough fluid to keep your pee (urine) pale yellow. Keep all follow-up visits as told by your doctor. This is important. Contact a doctor if: Your belly pain changes or gets worse. You are not hungry, or you lose weight without trying. You are having trouble pooping (constipated) or have watery poop (diarrhea) for more than 2 3 days. You have pain when you pee or poop. Your belly pain wakes you up at night. Your pain gets worse with meals, after eating, or with certain foods. You are vomiting and cannot keep anything down. You have a fever. You have blood in your pee. Get help right away if: Your pain does not go away as soon as your doctor says it should. You cannot stop vomiting. Your pain is only in areas of your belly, such as the right side or the left lower part of the belly. You have bloody or black poop, or poop that looks like tar. You have very bad pain, cramping, or bloating in your belly. You have signs of not having enough fluid or water in your body (dehydration), such as: ?Dark pee, very little pee, or no pee. ?Cracked lips. ?Dry mouth. ?Sunken eyes. ?Sleepiness. ?Weakness. You have trouble breathing or chest pain. Summary Many cases of belly pain can be watched and treated at home. Watch your belly pain for any changes. Take abrs-bcy-qbzlsda and prescription medicines only as told by your doctor. Contact a doctor if your belly pain changes or gets worse. Get help right away if you have very bad pain, cramping, or bloating in your belly. This information is not intended to replace advice given to you by your health care provider. Make sure you discuss any questions you have with your health care provider. Document Released: 04/28/2009 Document Revised: 03/20/2020 Document Reviewed: 03/20/2020 [employer] Patient Education 2019 [employer]. [facility] 04-19-2022 Hospital Discharge instructions Patient Education 04/19/2022 11:59:23 Calorie Counting for Weight Loss Calorie Counting for Weight Loss Calories are units of energy. Your body needs a certain amount of calories from food to keep you going throughout the day. When you eat more calories than your body needs, your body stores the extra calories as fat. When you eat fewer calories than your body needs, your body eaton fat to get the energy it needs. Calorie counting means keeping track of how many calories you eat and drink each day. Calorie counting can be helpful if you need to lose weight. If you make sure to eat fewer calories than your body needs, you should lose weight. Ask your health care provider what a healthy weight is for you. For calorie counting to work, you will need to eat the right number of calories in a day in order to lose a healthy amount of weight per week. A dietitian can help you determine how many calories you need in a day and will give you suggestions on how to reach your calorie goal. A healthy amount of weight to lose per week is usually 1 2 lb (0.5 0.9 kg). This usually means that your daily calorie intake should be reduced by 500 750 calories. Eating 1,200 1,500 calories per day can help most women lose weight. Eating 1,500 1,800 calories per day can help most men lose weight. What is my plan? My goal is to have calories per day. If I have this many calories per day, I should lose around pounds per week. What do I need to know about calorie counting? In order to meet your daily calorie goal, you will need to: Find out how many calories are in each food you would like to eat. Try to do this before you eat. Decide how much of the food you plan to eat. Write down what you ate and how many calories it had. Doing this is called keeping a food log. To successfully lose weight, it is important to balance calorie counting with a healthy lifestyle that includes regular activity. Aim for 150 minutes of moderate exercise (such as walking) or 75 minutes of vigorous exercise (such as running) each week. Where do I find calorie information? The number of calories in a food can be found on a Nutrition Facts label. If a food does not have a Nutrition Facts label, try to look up the calories online or ask your dietitian for help. Remember that calories are listed per serving. If you choose to have more than one serving of a food, you will have to multiply the calories per serving by the amount of servings you plan to eat. For example, the label on a package of bread might say that a serving size is 1 slice and that there are 90 calories in a serving. If you eat 1 slice, you will have eaten 90 calories. If you eat 2 slices, you will have eaten 180 calories. How do I keep a food log? Immediately after each meal, record the following information in your food log: What you ate. Don't forget to include toppings, sauces, and other extras on the food. How much you ate. This can be measured in cups, ounces, or number of items. How many calories each food and drink had. The total number of calories in the meal. Keep your food log near you, such as in a small notebook in your pocket, or use a mobile kenji or website. Some programs will calculate calories for you and show you how many calories you have left for the day to meet your goal. What are some calorie counting tips? Use your calories on foods and drinks that will fill you up and not leave you hungry: ?Some examples of foods that fill you up are nuts and nut butters, vegetables, lean proteins, and high-fiber foods like whole grains. High-fiber foods are foods with more than 5 g fiber per serving. ?Drinks such as sodas, specialty coffee drinks, alcohol, and juices have a lot of calories, yet do not fill you up. Eat nutritious foods and avoid empty calories. Empty calories are calories you get from foods or beverages that do not have many vitamins or protein, such as candy, sweets, and soda. It is better to have a nutritious high-calorie food (such as an avocado) than a food with few nutrients (such as a bag of chips). Know how many calories are in the foods you eat most often. This will help you calculate calorie counts faster. Pay attention to calories in drinks. Low-calorie drinks include water and unsweetened drinks. Pay attention to nutrition labels for low fat or fat free foods. These foods sometimes have the same amount of calories or more calories than the full fat versions. They also often have added sugar, starch, or salt, to make up for flavor that was removed with the fat. Find a way of tracking calories that works for you. Get creative. Try different apps or programs if writing down calories does not work for you. What are some portion control tips? Know how many calories are in a serving. This will help you know how many servings of a certain food you can have. Use a measuring cup to measure serving sizes. You could also try weighing out portions on a kitchen scale. With time, you will be able to estimate serving sizes for some foods. Take some time to put servings of different foods on your favorite plates, bowls, and cups so you know what a serving looks like. Try not to eat straight from a bag or box. Doing this can lead to overeating. Put the amount you would like to eat in a cup or on a plate to make sure you are eating the right portion. Use smaller plates, glasses, and bowls to prevent overeating. Try not to multitask (for example, watch TV or use your computer) while eating. If it is time to eat, sit down at a table and enjoy your food. This will help you to know when you are full. It will also help you to be aware of what you are eating and how much you are eating. What are tips for following this plan? Reading food labels Check the calorie count compared to the serving size. The serving size may be smaller than what you are used to eating. Check the source of the calories. Make sure the food you are eating is high in vitamins and protein and low in saturated and trans fats. Shopping Read nutrition labels while you shop. This will help you make healthy decisions before you decide to purchase your food. Make a grocery list and stick to it. Cooking Try to cook your favorite foods in a healthier way. For example, try baking instead of frying. Use low-fat dairy products. Meal planning Use more fruits and vegetables. Half of your plate should be fruits and vegetables. Include lean proteins like poultry and fish. How do I count calories when eating out? Ask for smaller portion sizes. Consider sharing an entree and sides instead of getting your own entree. If you get your own entree, eat only half. Ask for a box at the beginning of your meal and put the rest of your entree in it so you are not tempted to eat it. If calories are listed on the menu, choose the lower calorie options. Choose dishes that include vegetables, fruits, whole grains, low-fat dairy products, and lean protein. Choose items that are boiled, broiled, grilled, or steamed. Stay away from items that are buttered, battered, fried, or served with cream sauce. Items labeled crispy are usually fried, unless stated otherwise. Choose water, low-fat milk, unsweetened iced tea, or other drinks without added sugar. If you want an alcoholic beverage, choose a lower calorie option such as a glass of wine or light beer. Ask for dressings, sauces, and syrups on the side. These are usually high in calories, so you should limit the amount you eat. If you want a salad, choose a garden salad and ask for grilled meats. Avoid extra toppings like hernandez, cheese, or fried items. Ask for the dressing on the side, or ask for olive oil and vinegar or lemon to use as dressing. Estimate how many servings of a food you are given. For example, a serving of cooked rice is cup or about the size of half a baseball. Knowing serving sizes will help you be aware of how much food you are eating at restaurants. The list below tells you how big or small some common portion sizes are based on everyday objects: ?1 oz 4 stacked dice. ?3 oz 1 deck of cards. ?1 tsp 1 . ?1 Tbsp a ping-pong ball. ?2 Tbsp 1 ping-pong ball. ? cup baseball. ?1 cup 1 baseball. Summary Calorie counting means keeping track of how many calories you eat and drink each day. If you eat fewer calories than your body needs, you should lose weight. A healthy amount of weight to lose per week is usually 1 2 lb (0.5 0.9 kg). This usually means reducing your daily calorie intake by 500 750 calories. The number of calories in a food can be found on a Nutrition Facts label. If a food does not have a Nutrition Facts label, try to look up the calories online or ask your dietitian for help. Use your calories on foods and drinks that will fill you up, and not on foods and drinks that will leave you hungry. Use smaller plates, glasses, and bowls to prevent overeating. This information is not intended to replace advice given to you by your health care provider. Make sure you discuss any questions you have with your health care provider. Document Released: 11/10/2006 Document Revised: 07/30/2019 Document Reviewed: 10/10/2017 [employer] Patient Education 2020 [employer]. 04/19/2022 11:55:17 Benign Prostatic Hyperplasia Benign Prostatic Hyperplasia Benign prostatic hyperplasia (BPH) is an enlarged prostate gland that is caused by the normal aging process and not by cancer. The prostate is a walnut-sized gland that is involved in the production of semen. It is located in front of the rectum and below the bladder. The bladder stores urine and the urethra is the tube that carries the urine out of the body. The prostate may get bigger as a man gets older. An enlarged prostate can press on the urethra. This can make it harder to pass urine. The build-up of urine in the bladder can cause infection. Back pressure and infection may progress to bladder damage and kidney (renal) failure. What are the causes? This condition is part of a normal aging process. However, not all men develop problems from this condition. If the prostate enlarges away from the urethra, urine flow will not be blocked. If it enlarges toward the urethra and compresses it, there will be problems passing urine. What increases the risk? This condition is more likely to develop in men over the age of 50 years. What are the signs or symptoms? Symptoms of this condition include: Getting up often during the night to urinate. Needing to urinate frequently during the day. Difficulty starting urine flow. Decrease in size and strength of your urine stream. Leaking (dribbling) after urinating. Inability to pass urine. This needs immediate treatment. Inability to completely empty your bladder. Pain when you pass urine. This is more common if there is also an infection. Urinary tract infection (UTI). How is this diagnosed? This condition is diagnosed based on your medical history, a physical exam, and your symptoms. Tests will also be done, such as: A post-void bladder scan. This measures any amount of urine that may remain in your bladder after you finish urinating. A digital rectal exam. In a rectal exam, your health care provider checks your prostate by putting a lubricated, gloved finger into your rectum to feel the back of your prostate gland. This exam detects the size of your gland and any abnormal lumps or growths. An exam of your urine (urinalysis). A prostate specific antigen (PSA) screening. This is a blood test used to screen for prostate cancer. An ultrasound. This test uses sound waves to electronically produce a picture of your prostate gland. Your health care provider may refer you to a specialist in kidney and prostate diseases (urologist). How is this treated? Once symptoms begin, your health care provider will monitor your condition (active surveillance or watchful waiting). Treatment for this condition will depend on the severity of your condition. Treatment may include: Observation and yearly exams. This may be the only treatment needed if your condition and symptoms are mild. Medicines to relieve your symptoms, including: ?Medicines to shrink the prostate. ?Medicines to relax the muscle of the prostate. Surgery in severe cases. Surgery may include: ?Prostatectomy. In this procedure, the prostate tissue is removed completely through an open incision or with a laparoscope or robotics. ?Transurethral resection of the prostate (TURP). In this procedure, a tool is inserted through the opening at the tip of the penis (urethra). It is used to cut away tissue of the inner core of the prostate. The pieces are removed through the same opening of the penis. This removes the blockage. ?Transurethral incision (TUIP). In this procedure, small cuts are made in the prostate. This lessens the prostate's pressure on the urethra. ?Transurethral microwave thermotherapy (TUMT). This procedure uses microwaves to create heat. The heat destroys and removes a small amount of prostate tissue. ?Transurethral needle ablation (TUNA). This procedure uses radio frequencies to destroy and remove a small amount of prostate tissue. ?Interstitial laser coagulation (ILC). This procedure uses a laser to destroy and remove a small amount of prostate tissue. ?Transurethral electrovaporization (TUVP). This procedure uses electrodes to destroy and remove a small amount of prostate tissue. ?Prostatic urethral lift. This procedure inserts an implant to push the lobes of the prostate away from the urethra. Follow these instructions at home: Take rvmd-vob-pawaucc and prescription medicines only as told by your health care provider. Monitor your symptoms for any changes. Contact your health care provider with any changes. Avoid drinking large amounts of liquid before going to bed or out in public. Avoid or reduce how much caffeine or alcohol you drink. Give yourself time when you urinate. Keep all follow-up visits as told by your health care provider. This is important. Contact a health care provider if: You have unexplained back pain. Your symptoms do not get better with treatment. You develop side effects from the medicine you are taking. Your urine becomes very dark or has a bad smell. Your lower abdomen becomes distended and you have trouble passing your urine. Get help right away if: You have a fever or chills. You suddenly cannot urinate. You feel lightheaded, or very dizzy, or you faint. There are large amounts of blood or clots in the urine. Your urinary problems become hard to manage. You develop moderate to severe low back or flank pain. The flank is the side of your body between the ribs and the hip. These symptoms may represent a serious problem that is an emergency. Do not wait to see if the symptoms will go away. Get medical help right away. Call your local emergency services (911 in the [place] Do not drive yourself to the hospital. Summary Benign prostatic hyperplasia (BPH) is an enlarged prostate that is caused by the normal aging process and not by cancer. An enlarged prostate can press on the urethra. This can make it hard to pass urine. This condition is part of a normal aging process and is more likely to develop in men over the age of 50 years. Get help right away if you suddenly cannot urinate. This information is not intended to replace advice given to you by your health care provider. Make sure you discuss any questions you have with your health care provider. Document Released: 11/10/2006 Document Revised: 10/05/2019 Document Reviewed: 12/15/2017 [employer] Patient Education 2019 [employer]. Follow Up Care 03/26/2022 10:28:19 With:AIXA MARTIN, CHARLY Solis Address: [facility] [address] [place] [phone]- [phone] When:07/20/2022 [facility] Jus 03-19-2022 Hospital Discharge instructions Patient Education 03/19/2022 14:23:10 [facility] - [facility] Discharge Instructions (CUSTOM) [facility] Post-Procedure Instructions General Recommendations 1. Drink some extra fluids (water preferred) for the first few days following the procedure. Avoid alcohol and caffeine until your irritative symptoms have resolved. 2. Take the medication as prescribed by your doctor. Usually this will include an antibiotic, pain medication or antispasmodic if needed. 3. Avoid lifting heavy objects (>10 lbs) or excessive straining as this may cause bleeding in the first week after surgery. 4. Catheter instructions: You will go home with a Lam catheter attached to a catheter bag. Follow your doctor s instructions. 5. You may resume your normal diet. Common Treatment Related Symptoms The following are common treatment related signs and symptoms that you may experience after the procedure. They may also occur following removal of the catheter. After the procedure, your general urinary symptoms may temporarily worsen and then gradually improve. 1. Blood in the Urine. It is common to see some blood in the urine for 1 to 2 weeks. Limit any physical activities and drink some extra water to flush the bladder but you do not need to drink excessively or be alarmed. If you think the bleeding is excessive or you are having trouble urinating, call the number below. 2. Painful Urination. It is common to have some pain or burning with urination for 1 to 2 weeks. It should gradually improve. If it persists or starts to worsen, call the number below. 3. Slow Urinary Stream. After the procedure, swelling of the prostate occurs which may or may not make the urinary stream weaker. This should gradually improve. If you are having a lot of difficulty trying to urinate or cannot urinate, call your doctor. 4. Urinary Urgency, Frequency or Leakage. You may experience frequency and/or a strong urge to urinate while the prostate heals. Sometimes, you may find the urge is so strong that it is difficult to hold your urine and leakage can occur. 6. Blood in the Semen. This may occur up to several weeks following the procedure. The semen may have red or a marlon color. This condition will almost always resolve without any treatment. You should not be alarmed. Frequently Asked Questions Your Treating Doctor may override these recommendations. You should follow his/her instructions. 1. When can I resume normal physical activities? You may resume your daily activities immediately. You should limit vigorous workouts such as bike riding, running, treadmills, and heavy weight lifting for the first week. If you experience any bleeding, limit your activities and increase your water intake. 2. When can I resume sexual activity? In general, once you do not see any blood in the urine you may resume sexual activity. You may experience blood in the semen as described in the Common Treatment Related Symptoms section. 3. When can I resume my medications including blood thinners? In general, you should continue with any of your regular medications but check with your doctor. Typically, you can resume any blood thinners immediately post procedure but check with your doctor. 4. When can I go back to work? In general, you can return to work the following day. If you are taking pain medication (narcotics) or have a physical job (lifting, construction work, etc.), check with your doctor. 5. When can I have an alcoholic beverage? You should avoid any alcohol until your irritative symptoms have resolved, typically 1-2 weeks. Alcohol is a bladder irritant and can worsen your symptoms. You should also follow the instructions regarding alcohol intake on the labels of your prescription medication. Contact your Doctor Immediately If you experience: 1. Fever (oral temperature = 101 F), chills may be signs of an infection. 2. Inability to urinate. 3. Foul smelling or cloudy urine. 4. While there may be some pain related to the procedure, it is usually not severe. If you are experiencing severe pain or any condition you think may be serious, call your doctor. 5. If unable to contact your physician and you feel it is an emergency, go to the nearest emergency room or call 911. Lam Catheter Care, Male A Lam catheter is a soft, flexible tube that is placed into the bladder to drain urine. The catheter has a balloon to hold it inside the bladder. A Lam catheter may be inserted if: You leak urine or are not able to control when you urinate (urinary incontinence). You are not able to urinate when you need to (urinary retention). You had prostate surgery or surgery on the genitals. You have certain medical conditions, such as multiple sclerosis, dementia, or a spinal cord injury. To Prevent Infection: 1. Wash your hands with soap and water before and after handling your catheter. 2. Using mild soap and warm water on a clean washcloth; twice a day. Clean the area on your body closest to the catheter insertion site using a circular motion, moving away from the catheter. Never wipe toward the catheter because this could sweep bacteria up into the urethra and cause infection. Remove all traces of soap. Pat the area dry with a clean towel and reposition the foreskin. No tub baths. No lotions, powders, or sprays unless directed by your physician. 3. Keep the tube secure. Do not let the tube pull or catch when you are moving around. Attach the catheter to your leg so there is no tension on the catheter. Use adhesive tape or a leg strap. If you are using adhesive tape, remove any sticky residue left behind by the previous tape you used. 4. Replace wet leg straps with dry ones. 5. Wear cotton underwear to absorb moisture and keep skin pass operator. 6. Keep the drainage bag below the level of the bladder, but keep it off the floor. 7. Check throughout the day to be sure the catheter is working and urine is draining freely. Make sure the tubing does not become kinked or looped. 8. Do not pull on the catheter or try to remove it. Pulling could damage internal tissues. TAKING CARE OF THE DRAINAGE BAGS Emptying the Drainage Bag You must empty your drainage bag when it is ? full. 1. Wash your hands with soap and water before and after handling your catheter. 2. Keep the drainage bag below your hips, below the level of your bladder. This stops urine from going back into the tubing and into your bladder. 3. Hold the dirty bag over the toilet or a clean container. 4. Open the pour spout at the bottom of the bag and empty the urine into the toilet or container. Do not let the pour spout touch the toilet, container, or any other surface. Doing so can place bacteria on the bag, which can cause an infection. 5. Clean the pour spout with a gauze pad or cotton ball that has rubbing alcohol on it. 6. Close the pour spout. 7. Attach the bag to your leg with adhesive tape or a leg strap. Changing the Drainage Bag 1. Wash your hands with soap and water before and after handling your catheter. 2. Pinch off the rubber catheter so that urine does not spill out. 3. Disconnect the catheter tube from the drainage tube at the connection valve. Do not let the tubes touch any surface. 4. Clean the end of the catheter tube with an alcohol wipe. Use a different alcohol wipe to clean the end of the drainage tube. 5. Connect the catheter tube to the drainage tube of the clean drainage bag. 6. Attach the new bag to the leg with adhesive tape or a leg strap. Avoid attaching the new bag too tightly. 7. Place a cap on the drainage bag not in use and store in a clean towel. SEEK MEDICAL CARE IF: Your urine is cloudy or smells. Your catheter starts to leak. Your catheter falls out or is pulled out. You have pain, swelling, redness, or pus where the catheter enters the body. You have pain in the abdomen, legs, lower back, or bladder. You have a fever of 100.4 F (38 C) or higher You see pink, red, dark, coffee colored, or pus-like urine. You have nausea, vomiting, or chills. You are not feeling better in 2 to 3 days or you are feeling worse. You are not draining urine into the bag or your bladder feels full. MAKE SURE YOU: Understand the reason you have the catheter. Understand and follow these instructions to care for the catheter. Will watch your condition. Drink 6-8 glasses of water or liquids per day to keep your urine clear. Avoid Caffeinated drinks. They can irritate the bladder and cause bladder spasms. Keep your follow up appointments and call with any concerns. Follow Up Care 02/26/2022 09:48:04 With:Piter KRUSE Address: [facility] [address] , [place] [address] Business (1) When:03/26/2022 14:22:49 Comments:for lam removal. [facility] Evaluation + Plan note Future Appointments Appointment Date:03/26/2022 10:30:00 AM Scheduled Provider: Location:[facility] Appointment Type:URO Nurse Visit [facility] Evaluation + Plan note Future Appointments Appointment Date:04/19/2022 10:15:00 AM Scheduled Provider:Piter KRUSE MD [facility] Office Visit [facility] Evaluation + Plan note Future Appointments Appointment Date:07/22/2022 10:15:00 AM Scheduled Provider:Piter KRUSE MD [facility] App[facility] Type:URO Office Visit [facility] Evaluation + Plan note Future Appointments Appointment Date:07/22/2022 10:15:00 AM Scheduled Provider:Piter KRUSE MD Location:[facility] Appointment Type:URO Office Visit Diagnostic Tests PendingUrine Culture 05/29/22 [facility] Evaluation + Plan note Future Appointments Appointment Date:09/18/2022 09:00:00 AM Scheduled Provider:Lj Jay Location:[facility] Appointment Type:URO Office Visit Appointment Date:12/09/2022 10:30:00 AM Scheduled Provider:Piter KRUSE MD [facility] Type:[facility]O Office Visit [facility] Evaluation + Plan note Future Appointments Appointment Date:03/14/2023 08:45:00 AM Scheduled Provider:Piter KRUSE MD [facility] Type:URO Office Visit [facility] Evaluation note Diagnosis Aneurysm of ascending aorta without rupture ([facility]) [facility] Diagnosis SOB (shortness of breath)- Primary Shortness of breath documented in [facility] encounter [facility] Diagnosis Interstitial lung disease ([facility])- Primary Postinflammatory pulmonary fibrosis [facility]* Diagnosis DURGA (obstructive sleep apnea)- Primary Obstructive sleep apnea (adult) (pediatric) SOB (shortness of breath) Shortness of breath Restrictive pattern present on pulmonary function testing [facility] No data available for this section [facility] Discharge instructions No data available for this section [facility] InstructionsNot on filedocumented in this encounter [facility] filed[facility] this [facility] on filedocumented in this encounter [facility] filedocumented in [facility] No data available for this section [facility] reason for referral (narrative)* Consultation (Emergency) - Pending Review Specialty Diagnoses / Procedures Referred By Melissa jung Referred To Contact Pulmonary Medicine Diagnoses SOB (shortness of breath) [place] [address] [place] [id number] Anusha Hdez, DO [address] [place] [id number] Referral ID Status Reason Start Date Expiration Date Visits Requested Visits Authorized [id number] Pending Review Specialty Services Required 11/28/2023 2024 1 1 [facility] [facility] for visit Narrative* Consultation (Routine) - Pending Review Specialty Diagnoses / Procedures Referred By Contharshal t Referred To Contact Cardiothoracic Surgery Diagnoses Aneurysm of ascending aorta without rupture ([facility]) Bowen Garay, PHARMACEUTICAL DEVELOPMENT TECHNICIAN-ELECTRIC METER SETTER [address] [place] [address] Demarco Rebolledo MD [address] [facility] [address] [place] [address] Referral ID Status Reason Start Date Expiration Date Visits Requested Visits Authorized [id number] Pending Review Specialty Services Required 3 10/20/2024 1 1 [facility] Summary Purpose Family History No Family History Records FoundNo Family History Records FoundNo Family History Records FoundNo Family History Records FoundNo Family History Records FoundNo Family History Records FoundNo Family History Records Found No data available for this section No Family History Records FoundNo Family History Records FoundNo Family History Records FoundNo Family History Records Found Advance Directives No Advanced Directives Records FoundNo Advanced Directives Records FoundNo Advanced Directives Records FoundNo Advanced Directives Records FoundNo Advanced Directives Records FoundNo Advanced Directives Records FoundNo Advanced Directives Records FoundNo Advanced Directives Records FoundNo Advanced Directives Records FoundNo Advanced Directives Records FoundNo Advanced Directives Records Found Additional Source Comments (unrecognized sect ion and content) No Status Records FoundNo Status Records FoundNo Status Records FoundNo Status Records FoundNo Status Records FoundNo Status Records FoundNo Status Records FoundNo Status Records FoundNo Status Records FoundNo Status Records FoundNo Status Records Found INFORMATION SOURCE (unrecogn ized section and content) DATE CREATED AUTHOR 05/20/2018 [facility] DATE CREATED AUTHOR AUTHOR'S ORGANIZ ATION 05/20/2018 [facility] DATE CREATED AUTHOR AUTHOR'S ORGANIZ ATION 12/24/2021 [facility] DATE CREATED AUTHOR AUTHOR'S ORGANIZ ATION 12/29/2021 [facility] DATE CREATED AUTHOR AUTHOR'S ORGANIZ ATION 12/06/2022 [facility] Specialist DATE CREATED AUTHOR AUTHOR'S ORGANIZ ATION 11/15/2023 [facility] Specialists [facility] DATE CREATED AUTHOR AUTHOR'S ORGANIZ ATION 11/30/2023 [facility] DATE CREATED AUTHOR AUTHOR'S ORGANIZ ATION 12/19/2023 [facility] DATE CREATED AUTHOR AUTHOR'S ORGANIZ ATION 12/21/2023 [facility] DATE CREATED AUTHOR AUTHOR'S ORGANIZ ATION 01/01/2024 [facility] DATE CREATED AUTHOR AUTHOR'S ORGANIZ ATION 01/02/2024 Mirtha Spencer s Care Team (unrecognized sect ion and content) [employer] Mail[employer] 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 Relationship Specialty Start Date End Date Leonarda Fink DO [address] [place] [address] PCP - General Family Medicine 02/08/21 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 Relationship Specialty Start Date End Date Leonarda Fink DO [address] [place] [address] PCP - General Family Medicine 02/08/21 [employer] 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 Relationship Specialty Start Date End Date Leonarda Fink DO [address] [place] [address] PCP - General Family Medicine 02/08/21 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 Relationship Specialty Start Date End Date Leonarda Fink DO [address] [place] [address] PCP - General Family Medicine 02/08/21 Reason for Visit (unrecogniz ed section and content) Reason Comments Follow-up Shortness of Breath PFT: 12/16/2022 Specialty Diagnoses / Procedures Referred By Contharshal t Referred To Contact Pulmonary Medicine Diagnoses SOB (shortness of breath) Demarco Rebolledo MD [address] [facility] [address] [place] [address] Anusha Hdez DO [address] [address] Referral ID Status Reason Start Date Expiration Date Visits Requested Visits Authorized [id number] Pending Review Specialty Services Required 11/28/2023 2024 1 FOR RECORDS PERTAINING TO PATIENTS WHO ARE OR HAVE BEEN ENROLLED IN A CHEMICAL DEPENDENCY/SUBSTANCEABUSE PROGRAM, SOME INFORMATION MAY BE OMITTED. This clinical summary was aggregated from multiple sources. Caution should be exercised in using it in the provision of clinical care. This summary normalizes information from multiple sources, and as a consequence, information in this document may materially change the coding, format and clinical context of patient data. In addition, data may be omitted in some cases. CLINICAL DECISIONS SHOULD BE BASED ON THE PRIMARY CLINICAL RECORDS. [facility] [employer] [facility]. provides no warranty or guarantee of the accuracy or completeness of information in this document.
[2024-01-19 07:28] VITALS: BP 138/67; PULSE 65; RESP 18; TEMP 36.3; O2SAT 94; BMI 29.8
[2024-01-19] MEDS: LIDOCAINE 2% JELLY 10 ML UR (08:17)
[2024-01-19 08:20] VITALS: BP 133/61; BP 141/60; PULSE 60; PULSE 62; RESP 18; O2SAT 93; O2SAT 94
--- NOTE | 2024-01-19 08:23 | PM.URSON ---
Urology Surgery Operative Note Operative Note Procedure Date: 01/19/24 Time Out Performed: yes Pre-op Diagnosis: Hematuria Post-op Diagnosis: same as pre-op Procedures performed: 1. Cystoscopy. Anesthesia: local Primary Surgeon: Piter Molina Complications: None Estimated blood loss (mL): 0 Findings: 1. Open prostatic urethra. 2. High-grade trabeculation and open diverticuli diffusely. No evidence of bladder tumors. Specimens: None Indications for Procedures: This gentleman has BPH with LUTS and microhematuria. His renal ultrasound was unremarkable. He now presents for cystoscopy. He has signed an informed consent after his were explained. Detailed description of Procedure: The patient was kept on his gurney bed and brought into the endoscopy suite. He was in the supine position. Timeout was done by all parties in the room. The genitalia were sterilely prepped and draped in the usual fashion. 2% Xylocaine jelly was passed per urethra. I started by passing a flexible cystoscope per urethra and into the bladder. The anterior urethra was normal. The prostatic urethra showed minimal regrowth on the left lateral lobe. Essentially, it was still open. Careful seymour endoscopy in the bladder showed no evidence of any tumors stones or foreign bodies. There was high-grade trabeculation and open diverticuli diffusely. The scope was retroverted upon itself and no new findings were noted. The scope was then removed. He was then discharged to home.
--- OUTSIDE RECORDS SUMMARY | 2024-01-22 11:10 | XMS_ITS | CCD ---
Author Name Unknown Address [address] [place] [address] Organization [facility] Care Team Providers Care Sterile Proc Tech Name Role Phone BERENGER, ENEDELIA G Unavailable [...] Danae DO, Leonarda G Primary Care Provider [phone] DEMARCO REBOLLEDO. Attending Unavailable BOWEN GARAY Referring Unavailable DANAE, LEONARDA G Primary Care Unavailable ANUSHA HDEZ Attending Unavailable ANUSHA HDEZ Referring Unavailable DANAE, LEONARDA G Primary Care [...] allergy Unknown (qualifier value) [facility] [place] (4 sources) Seasonal allergy; Translations: [Seasonal] Drug allergy Sneezing (finding) [facility] Cheri (7 sources) atorvastatin; Translations: [ATORVASTATIN] Drug Allergy 10-30-2021 [facility] Medications Current Medications Medication Drug [...] 02-26-2022 take 1 tablet by mouth once [place] 325 mg-7.5 mg oral tablet 1 tab(s), Oral, Once, 1 tab(s), Refill(s) 0, Take 1 hour prior to procedure, [facility], 180, cm, 01/29/22 12:53:00 EST, Height/Length Dosing, 95, kg, 12/31/21 13:10:00 EST, Weight Dosing Start Date: 02/26/22 Status: Ordered [id number] 200 actuat albuterol 0.09 mg/actuat metered dose [...] day(s), # 28 tab(s), Refills(s) 0, Pharmacy: [facility], 180, cm, 04/19/22 11:19:00 EDT, Height/Length Dosing, 95, kg, 04/19/22 11:18:00 EDT, Weight Dosing Start Date: 05/23/22 Stop Date: 06/06/22 Status: Ordered Start: 04-19-2022 take 1 capsule by mo [facility] twice daily doxycycline hyclate 100 mg Cap 100 mg = 1 cap(s), Oral, BID, # 28 cap(s), Refills(s) 0, Pharmacy: [facility], 180, cm, 04/19/22 11:19:00 EDT, Height/Length Dosing, 95, kg, 04/19/22 11:18:00 EDT, Weight Dosing Start Date: 04/19/22 Status: Ordered finasteride 5 mg oral tablet (5 sources) 5-alpha Reductase Inhibitor Start: 04-11-2022 take 1 tablet by mouth once daily finasteride 5 mg Tab 5 mg = 1 tab(s), Oral, Daily, # 90 tab(s), Refills(s) 3, Pharmacy: [facility], 180, cm, 03/14/22 13:53:00 EDT, Height/Length Dosing, 95, kg, 12/31/21 13:10:00 EST, Weight Dosing Start Date: 04/11/22 Status: Ordered Start: 03-12-2022 take 1 tablet by chet th once daily finasteride 5 mg Tab 5 mg = 1 tab(s), Oral, Daily, # 90 tab(s), Refills(s) 3, Pharmacy: [facility], 180, cm, 01/29/22 12:53:00 EST, Height/Length Dosing, 95, kg, 12/31/21 13:10:00 EST, Weight Dosing Start Date: 03/12/22 Status: Ordered 30 actuat fluticasone furoate 0.1 mg/actuat / umeclidinium 0.0625 mg/actuat / vilanterol 0.025 mg/actuat dry powder inhaler (1 source) Anticholinergic, Corticosteroid, beta2-Adrenergic Agonist Start: 12-18-2023 take 1 puff(s) by inhalation once daily pynqqligmbb-gyjlrybgc-okhonane (TRELEGY ELLIPTA) 100-62.5-25 mcg blister with device [...] mg 24 hr tablet Indications: Atherosclerosis of [place] coronary artery of [place] heart without angina pectoris TAKE 1 TABLET [...] day(s), # 30 tab(s), Refills(s) 4, Pharmacy: [facility], 180, cm, 12/09/22 11:37:00 [...] day(s), # 180 cap(s), Refills(s) 3, Pharmacy: [facility], 180, cm, 03/14/23 9:03:00 EDT, Height/Length Dosing, 102, kg, 03/14/23 9:03:00 EDT, Weight Dosing Start Date: 03/14/23 Stop Date: 03/08/24 Status: Ordered Start: 04-11-2022 take 1 capsule by mo [facility] twice daily Flomax 0.4 mg Cap 0.4 mg = 1 cap(s), Oral, BID, # 180 cap(s), Refills(s) 3, Pharmacy: [facility], 180, cm, 03/14/22 13:53:00 EDT, Height/Length Dosing, 95, kg, 12/31/21 13:10:00 EST, Weight Dosing Start Date: 04/11/22 Status: Ordered Start: 02-26-2022 take 1 capsule by mo [facility] twice daily Flomax 0.4 mg Cap 0.4 mg = 1 cap(s), Oral, BID, # 180 cap(s), Refills(s) 3, Pharmacy: [facility], 180, cm, 01/29/22 12:53:00 [...] procedure, # 2 tab(s), Refills(s) 0, Pharmacy: [facility], 180, cm, 12/08/23 15:20:00 EST, Height/Length Dosing, 100, kg, 12/08/23 15:20:00 EST, Weight Dosing Start Date: 12/08/23 Status: Ordered MULTIVIT WITH MINERALS/LUTEIN (MULTIVITAMIN 50 PLUS ORAL) (4 sources) End: 12-18-2023 MULTIVIT WITH MINERALS/LUTEIN (MULTIVITAMIN 50 PLUS ORAL) Take by mouth. 0 12/18/2023 Discontinued MULTIVIT WITH [place] NERALS/LUTEIN (MULTIVITAMIN 50 PLUS ORAL) Take by [...] Coronary arteriosclerosis; Translations: [Atherosclerotic heart disease of [place] coronary artery without angina pectoris] Onset: 10-24-2022 [...] Diagnostics Comment on above: Performed By: #### 0774, 44244 #### [facility] [address] [place] [phone] Business Continuity Consultant: Preston E Cotes Basophils/100 WBC (Bld) 1.1 % Normal [facility] Comment on above: Performed By: #### 2536, 23512 #### [facility] [address] [place] [phone] Business Continuity Consultant: Preston E Cotes Eosinophils (Bld) [#/Vol] 0.266 10*3/uL Normal 15-500 [facility] Comment on above: Performed By: #### 9542, 98470 #### [facility] [address] Business Continuity Consultant: Preston E Cotes Eosinophils/100 WBC (Bld) 3.7 % Normal [facility] Comment on above: Performed By: #### 6399, 19232 #### [facility] [address] Business Continuity Consultant: Preston E Cotes Erythrocyte distribution width (RBC) [Ratio] 13.0 % Normal 11.0-15.0 [facility] Comment on above: Performed By: #### 6399, 38399 #### [facility] [address] Business Continuity Consultant: Preston E Cotes Hematocrit (Bld) [Volume fraction] 44.3 % Normal 38.5-50.0 [facility] Comment on above: Performed By: #### 6399, 01103 #### [facility] [place] [address] Business Continuity Consultant: Preston E Cotes Hemoglobin (Bld) [Mass/Vol] 14.8 g/dL Normal 13.2-17.1 [facility] Comment on above: Performed By: #### 6399, 86040 #### [facility] [place] [address] Business Continuity Consultant: Preston E Cotes Lymphocytes (Bld) [#/Vol] 1.519 10*3/uL Normal 850-3900 [facility] Comment on above: Performed By: #### 6399, 20400 #### [facility] [address] Business Continuity Consultant: Preston E Cotes Lymphocytes/100 WBC (Bld) 21.1 % Normal [facility] Comment on above: Performed By: #### 6399, 25147 #### [facility] [place] [address] Business Continuity Consultant: Preston E Cotes MCH (RBC) [Entitic mass] 31.3 pg Normal 27.0-33.0 [facility] Comment on above: Performed By: #### 6399, 61026 #### [facility] [address] Business Continuity Consultant: Prestonlance Bishopes MCHC (RBC) [Mass/Vol] 33.4 g/dL Normal 32.0-36.0 [facility] Comment on above: Performed By: #### 6399, 91759 #### [facility] [place] [address] Business Continuity Consultant: Prestonlance Bishopes MCV (RBC) [Entitic vol] 93.7 fL Normal 80.0-100.0 [facility] Comment on above: Performed By: #### 6399, 00678 #### [facility] [place] [address] Business Continuity Consultant: Preston E Cotes Monocytes (Bld) [#/Vol] 0.662 10*3/uL Normal 200-950 [facility] Comment on above: Performed By: #### 6399, 61435 #### [facility] [address] Business Continuity Consultant: Preston Bishopes Monocytes/100 WBC (Bld) 9.2 % Normal [facility] Comment on above: Performed By: #### 6399, 98965 #### [facility] [place] [address] Business Continuity Consultant: Prestonlance Bishopes Neutrophils (Bld) [#/Vol] 4.673 10*3/uL Normal 1067-0104 [facility] Comment on above: Performed By: #### 6399, 63653 #### [facility] [address] Business Continuity Consultant: Preston E Cotes Neutrophils/100 WBC (Bld) 64.9 % Normal [facility] Comment on above: Performed By: #### 6399, 80051 #### [facility] [place] [address] Business Continuity Consultant: Preston E Darioes Platelet mean volume (Bld) [Entitic vol] 9.8 fL Normal 7.5-12.5 [facility] Comment on above: Performed By: #### 6399, 30606 #### [facility] [address] [place], [place] [address] Business Continuity Consultant: Preston E Cotes Platelets (Bld) [#/Vol] 204 10*3/uL Normal 140-400 [facility] Comment on above: Performed By: #### 6399, 82857 #### [facility] [address] [place] [address] Business Continuity Consultant: Preston E Cotes RBC (Bld) [#/Vol] 4.73 10*6/uL Normal 4.20-5.80 [facility] Comment on above: Performed By: #### 6399, 94471 #### [facility] [address] [place] [address] Business Continuity Consultant: Preston E Cotes WBC (Bld) [#/Vol] 7.2 10*3/uL Normal 3.8-10.8 [facility] Comment on above: Performed By: #### 6399, 19222 #### [facility] [address] [place] [address] Business Continuity Consultant: Preston Kidd COMPREHENSIVE METABOLIC PANE [facility] 01-01-2024 Albumin [Mass/Vol] 4.1 g/dL Normal 3.6-5.1 [facility] Comment on above: Performed By: #### 6399, 33707 #### [facility] [address] Business Continuity Consultant: Preston Bishopes Albumin/Globulin [Mass ratio] 1.6 {ratio} Normal 1.0-2.5 [facility] Comment on above: Performed By: #### 6399, 68550 #### [facility] [address] [place], [place] [address] Business Continuity Consultant: Preston E Cotes ALP [Catalytic activity/Vol] 51 U/L Normal 35-144 [facility] Comment on above: Performed By: #### 6399, 16270 #### [facility] [address] [place], [place] [address] Business Continuity Consultant: Prestonlance Bishopes ALT [Catalytic activity/Vol] 14 U/L Normal 9-46 [facility] Comment on above: Performed By: #### 6399, 25606 #### [facility] [address] [place], [place] [address] Business Continuity Consultant: Preston E Cotes AST [Catalytic activity/Vol] 27 U/L Normal 10-35 [facility] Comment on above: Performed By: #### 6399, 31223 #### [facility] Business Continuity Consultant: Preston E Cotes Bilirubin [Mass/Vol] 0.6 mg/dL Normal 0.2-1.2 [facility] Comment on above: Performed By: #### 6399, 36581 #### [facility] Business Continuity Consultant: Preston E Cotes BUN/CREATININE RATIO SEE NOTE: Normal 6- [facility] Comment on above: Result Comment: Not Reported: BUN and Cr eatinine are within reference range. Performed By: #### 6 399, 36578 #### [facility] [address] [place], [place] [address] Business Continuity Consultant: Preston E Cotes Calcium [Mass/Vol] 9.1 mg/dL Normal 8.6-10.3 [facility] Comment on above: Performed By: #### 6399, 23051 #### [facility] Business Continuity Consultant: Preston E Cotes Chloride [Moles/Vol] 106 mmol/L Normal 98-110 [facility] Comment on above: Performed By: #### 6399, 31456 #### [facility] [address] [place], [place] [address] Business Continuity Consultant: Preston E Cotes CO2 [Moles/Vol] 27 mmol/L Normal 20-32 [facility] Comment on above: Performed By: #### 6399, 99413 #### [facility] [address] [place], [place] [address] Business Continuity Consultant: Preston E Cotes Creatinine [Mass/Vol] 1.06 mg/dL Normal 0.70-1.22 [facility] Comment on above: Performed By: #### 6399, 28152 #### [facility] [address] [place] [address] Business Continuity Consultant: Preston Lindsay Cotes GFR/1.73 sq M.predicted among non-blacks MDRD (S/P/Bld) [Vol rate/Area] 70 mL/min/{1.73_m2} Normal > OR = 60 [facility] Comment on above: Performed By: #### 6399, 24392 #### [facility] [address] [place] [address] Business Continuity Consultant: Preston E Cotes Globulin (S) [Mass/Vol] 2.6 g/dL Normal 1.9-3.7 [facility] Comment on above: Performed By: #### 6399, 26083 #### [facility] [address] Business Continuity Consultant: Preston E Cotes Glucose [Mass/Vol] 97 mg/dL Normal 65-99 [facility] Comment on above: Result Comment: Fasting reference interval Performed By: #### 6 399, 61514 #### [facility] [address] [place] [address] Business Continuity Consultant: Preston E Cotes Potassium [Moles/Vol] 4.1 mmol/L Normal 3.5-5.3 [facility] Comment on above: Performed By: #### 6399, 38762 #### [facility] [address] [place] [address] Business Continuity Consultant: Preston E Cotes Protein [Mass/Vol] 6.7 g/dL Normal 6.1-8.1 [facility] Comment on above: Performed By: #### 6399, 07795 #### [facility] [address] [place] [address] Business Continuity Consultant: Preston E Cotes Sodium [Moles/Vol] 141 mmol/L Normal 135-146 [facility] Comment on above: Performed By: #### 6399, 77224 #### [facility] [address] [place] [address] Business Continuity Consultant: Preston E Cotes Urea nitrogen [Mass/Vol] 22 mg/dL Normal 7-25 [facility] Comment on above: Performed By: #### 6399, 49346 #### [facility] [address] [place] [address] Business Continuity Consultant: Preston Montoya Cotestefany SED RATE BY MODIFIED WESTERG RENon 01-01-2024 SED RATE BY MODIFIED WESTERGREN 13 mm/h Normal < OR = 20 [facility] Comment on above: Performed By: #### 6399, 25504 #### [facility] [address] [place] [address] Business Continuity Consultant: Prestonnya Kidd Consent for Procedure/Surger yon 12-31-2023 Consent for Procedure/Surger y [id number] Normal [facility] RAD - Ultrasound Reporton RAD - Ultrasound Report [id number]#[id number] Normal [facility] Ambulatory Visit Summaryon 0 12-08-2023 Ambulatory Visit Summary TOMAS REYNOSO :1940 Visit Date:12/08/2023 Ambulatory Visit Instructions Your Diagnosis BPH with urinary obstruction Microscopic hematuria Feeling of incomplete bladder emptying Urinary frequency Erectile dysfunction Tests Performed Urnls Dip Stick Auto w/o Microscopy POC 58613 Your Care Team Attending Physician - Piter [...] [facility] [address], [place] [phone] Medications What How Much When Instructions New ciprofloxacin (Cipro 500 mg Tab) 1 Tablets By Mouth Every day take one tab day before procedure and one tab after procedure Pickup at [facility] Unchanged tamsulosin (Flomax 0.4 mg Cap) 1 [...] physician if questions or concerns Pharmacy Information [facility]28: [address] [place], [place] [id number] [phone] Test Results Urnls Dip Stick Auto w/o Microscopy POC 26208 (12/08/2023) Bilirubin Urine Dipstick - Negative Blood Urine Dipstick - Negative Glucose Urine Dipstick - Negative Ketones Urine Dipstick - Negative Leukocytes Urine Dipstick - Negative Nitrite Urine Dipstick - Negative Protein Urine Dipstick - Negative Specific [place] Urine Dipstick - 1.025 Urine Appearance Urine [...] (overactive bladde (more content not included)... Normal [facility] Urology Office/Clinic Noteon 12-08-2023 Urology Office/Clinic [...] [facility]rology [address], [place] [phone] Additional Instructions: sched cysto Patient Education Cystoscopy [...] Tab i (more content not included)... Normal [facility] Comment on above: Result Comment: Electronically Signed By : Piter KRUSE MD\.br\Date and Time Signed: 12/08/23 16:11 EST\.br\Electronically Co-Signed By: Yessi Tamez\.br\Date and Time Co-Signed: 12/08/23 16:08 EST CBC (INCLUDES DIFF/PLT)on Basophils (Bld) [#/Vol] 0.098 10*3/uL Normal 0-200 [facility] Comment on above: Performed By: #### 6399, 93694, 809 #### [facility] of [address], [address] [place] [address] Business Continuity Consultant: Jerry Reyes MD Basophils/100 WBC (Bld) 1.6 % Normal [facility] Comment on above: Performed By: #### 6399, 14944, 809 #### [facility] [place] [address] Business Continuity Consultant: Jerry Reyes MD Eosinophils (Bld) [#/Vol] 0.293 10*3/uL Normal 15-500 [facility] Comment on above: Performed By: #### 6399, 47694, 809 #### [facility] [place] [address] Business Continuity Consultant: Jerry Reyes MD Eosinophils/100 WBC (Bld) 4.8 % Normal [facility] Comment on above: Performed By: #### 6399, 69428, 809 #### [facility] [place] [address] Business Continuity Consultant: Jerry Reyes MD Erythrocyte distribution width (RBC) [Ratio] 12.5 % Normal 11.0-15.0 [facility] Comment on above: Performed By: #### 6399, 69581, 809 #### [facility] [place] [address] Business Continuity Consultant: Jerry Reyes MD Hematocrit (Bld) [Volume fraction] 43.4 % Normal 38.5-50.0 [facility] Comment on above: Performed By: #### 6399, 77400, 809 #### [facility] of [address] [place] [address] Business Continuity Consultant: Jerry Reyes MD Hemoglobin (Bld) [Mass/Vol] 14.3 g/dL Normal 13.2-17.1 [facility] Comment on above: Performed By: #### 6399, 54229, 809 #### [facility] [place] [address] Business Continuity Consultant: Jerry Reyes MD Lymphocytes (Bld) [#/Vol] 1.153 10*3/uL Normal 850-3900 [facility] Comment on above: Performed By: #### 6399, 07666, 809 #### [facility] [place] [address] Business Continuity Consultant: Jerry Reyes MD Lymphocytes/100 WBC (Bld) 18.9 % Normal [facility] Comment on above: Performed By: #### 6399, 23836, 809 #### [facility] [place] [address] Business Continuity Consultant: Jerry Reyes MD MCH (RBC) [Entitic mass] 31.2 pg Normal 27.0-33.0 [facility] Comment on above: Performed By: #### 6399, 15319, 809 #### [facility] [place] [address] Business Continuity Consultant: Jerry Reyes MD MCHC (RBC) [Mass/Vol] 32.9 g/dL Normal 32.0-36.0 [facility] Comment on above: Performed By: #### 6399, 56929, 809 #### [facility] [place] [address] Business Continuity Consultant: Jerry Reyes MD MCV (RBC) [Entitic vol] 94.6 fL Normal 80.0-100.0 [facility] Comment on above: Performed By: #### 6399, 02889, 809 #### [facility] [place] [address] Business Continuity Consultant: Jerry Reyes MD Monocytes (Bld) [#/Vol] 0.488 10*3/uL Normal 200-950 [facility] Comment on above: Performed By: #### 6399, 82387, 809 #### [facility] [place] [address] Business Continuity Consultant: Jerry Reyes MD Monocytes/100 WBC (Bld) 8.0 % Normal [facility] Comment on above: Performed By: #### 6399, 97540, 809 #### [facility] [place] [address] Business Continuity Consultant: Jerry Reyes MD Neutrophils (Bld) [#/Vol] 4.069 10*3/uL Normal 4849-0114 [facility] Comment on above: Performed By: #### 6399, 70414, 809 #### [facility] [place] [address] Business Continuity Consultant: Jerry Reyes MD Neutrophils/100 WBC (Bld) 66.7 % Normal [facility] Comment on above: Performed By: #### 6399, 14252, 809 #### [facility] [place] [address] Business Continuity Consultant: Jerry Reyes MD Platelet mean volume (Bld) [Entitic vol] 9.4 fL Normal 7.5-12.5 [facility] Comment on above: Performed By: #### 6399, 99554, 809 #### [facility] [place] [address] Business Continuity Consultant: Jerry Reyes MD Platelets (Bld) [#/Vol] 179 10*3/uL Normal 140-400 [facility] Comment on above: Performed By: #### 6399, 09034, 809 #### [facility] [place] [address] Business Continuity Consultant: Jerry Reyes MD RBC (Bld) [#/Vol] 4.59 10*6/uL Normal 4.20-5.80 [facility] Comment on above: Performed By: #### 6399, 80123, 809 #### [facility] [place] [address] Business Continuity Consultant: Jerry Reyes MD WBC (Bld) [#/Vol] 6.1 10*3/uL Normal 3.8-10.8 [facility] Comment on above: Performed By: #### 6399, 92982, 809 #### [facility] [place] [address] Business Continuity Consultant: Jerry Reyes MD [facility]ABOL[facility] 08-02-2023 Albumin [Mass/Vol] 4.0 g/dL Normal 3.6-5.1 [facility] Comment on above: Performed By: #### 6399, 44478, 809 #### [facility] [place] [address] Business Continuity Consultant: Jerry Reyes MD Albumin/Globulin [Mass ratio] 1.5 {ratio} Normal 1.0-2.5 [facility] Comment on above: Performed By: #### 6399, 45995, 809 #### [facility] [place] [address] Business Continuity Consultant: Jerry Reyes MD ALP [Catalytic activity/Vol] 55 U/L Normal 35-144 [facility] Comment on above: Performed By: #### 6399, 81495, 809 #### [facility] [place] [address] Business Continuity Consultant: Jerry Reyes MD ALT [Catalytic activity/Vol] 15 U/L Normal 9-46 [facility] Comment on above: Performed By: #### 6399, 77543, 809 #### [facility] [place] [address] Business Continuity Consultant: Jerry Reyes MD AST [Catalytic activity/Vol] 26 U/L Normal 10-35 [facility] Comment on above: Performed By: #### 6399, 92354, 809 #### [facility] of [address], [address] [place] [address] Business Continuity Consultant: Jerry Reyes MD Bilirubin [Mass/Vol] 0.5 mg/dL Normal 0.2-1.2 [facility] Comment on above: Performed By: #### 6399, 11775, 809 #### [facility] of [address], [address] [place] [address] Business Continuity Consultant: Jerry Reyes MD BUN/CREATININE RATIO SEE NOTE: Normal 6-22 [facility] Comment on above: Result Comment: Not Reported: BUN and Cr eatinine are within reference range. Performed By: #### 6 399, 16292, 809 #### [facility] of [address], [address] [place] [address] Business Continuity Consultant: Jerry Reyes MD Calcium [Mass/Vol] 8.9 mg/dL Normal 8.6-10.3 [facility] Comment on above: Performed By: #### 6399, 77339, 809 #### [facility] [address], [address] [place] [address] Business Continuity Consultant: Jerry Reyes MD Chloride [Moles/Vol] 106 mmol/L Normal 98-110 [facility] Comment on above: Performed By: #### 6399, 23714, 809 #### [facility] [address], [address] [place] [address] Business Continuity Consultant: Jerry Reyes MD CO2 [Moles/Vol] 24 mmol/L Normal 20-32 [facility] Comment on above: Performed By: #### 6399, 87062, 809 #### [facility] of [address], [address] [place] [address] Business Continuity Consultant: Jerry Reyes MD Creatinine [Mass/Vol] 1.11 mg/dL Normal 0.70-1.22 [facility] Comment on above: Performed By: #### 6399, 87617, 809 #### [facility] of [address], [address] [place] [address] Business Continuity Consultant: Jerry Reyes MD GFR/1.73 sq M.predicted among non-blacks MDRD (S/P/Bld) [Vol rate/Area] 67 mL/min/{1.73_m2} Normal > OR = 60 [facility] Comment on above: Performed By: #### 6399, 24138, 809 #### [facility] [address], [address] [place] [address] Business Continuity Consultant: Jerry Reyes MD Globulin (S) [Mass/Vol] 2.6 g/dL Normal 1.9-3.7 [facility] Comment on above: Performed By: #### 6399, 01197, 809 #### [facility] [address], [address] [place] [address] Business Continuity Consultant: Jerry Reyes MD Glucose [Mass/Vol] 98 mg/dL Normal 65-99 [facility] Comment on above: Result Comment: Fasting reference interval Performed By: #### 6 399, 21788, 809 #### [facility] of [address], [address] [place] [address] Business Continuity Consultant: Jerry Reyes MD Potassium [Moles/Vol] 4.2 mmol/L Normal 3.5-5.3 [facility] Comment on above: Performed By: #### 6399, 27002, 809 #### [facility] [place] [address] Business Continuity Consultant: Jerry Reyes MD Protein [Mass/Vol] 6.6 g/dL Normal 6.1-8.1 [facility] Comment on above: Performed By: #### 6399, 57168, 809 #### [facility] [place] [address] Business Continuity Consultant: Jerry Reyes MD Sodium [Moles/Vol] 140 mmol/L Normal 135-146 [facility] Comment on above: Performed By: #### 6399, 11685, 809 #### [facility] [place] [address] Business Continuity Consultant: Jerry Reyes MD Urea nitrogen [Mass/Vol] 20 mg/dL Normal 7-25 [facility] Comment on above: Performed By: #### 6399, 53459, 809 #### [facility] [address] [place] [address], [address] Business Continuity Consultant: Jerry Reyes MD SED RATE BY MODIFIED WESTERG RENon 08-02-2023 SED RATE BY MODIFIED WESTERGREN 14 mm/h Normal < OR = 20 [facility] Comment on above: Performed By: #### 6399, 79566, 809 #### [facility] [address] [place] [address], 4 [place] [phone] Business Continuity Consultant: Jerry Reyes MD CBC (INCLUDES DIFF/PLT)on Basophils (Bld) [#/Vol] 0.131 10*3/uL Normal 0-200 [facility] Comment on above: Performed By: #### 28935, 6399, 49863 ## ## [facility] [address] [place] [address] Business Continuity Consultant: Preston E Cotes Basophils/100 WBC (Bld) 1.9 % Normal [facility] Comment on above: Performed By: #### 76261, 6399, 54150 ## ## [facility] [address] [place] [address] Business Continuity Consultant: Preston E Cotes Eosinophils (Bld) [#/Vol] 0.352 10*3/uL Normal 15-500 [facility] Comment on above: Performed By: #### 82195, 6399, 52272 ## ## [facility] [address] [place] [address] Business Continuity Consultant: Preston E Cotes Eosinophils/100 WBC (Bld) 5.1 % Normal [facility] Comment on above: Performed By: #### 99479, 6399, 16645 ## ## [facility] [address] [place] [address] Business Continuity Consultant: Preston E Cotes Erythrocyte distribution width (RBC) [Ratio] 13.7 % Normal 11.0-15.0 [facility] Comment on above: Performed By: #### 96214, 6399, 55402 ## ## [facility] [address] [place], [place] [id number] Business Continuity Consultant: Preston Bishopes Hematocrit (Bld) [Volume fraction] 41.9 % Normal 38.5-50.0 [facility] Comment on above: Performed By: #### 23567, 6399, 12752 ## ## [facility] [address] Business Continuity Consultant: Prestonlance Bishopes Hemoglobin (Bld) [Mass/Vol] 14.1 g/dL Normal 13.2-17.1 [facility] Comment on above: Performed By: #### 71147, 6399, 67650 ## ## [facility] [address] Business Continuity Consultant: Prestonlance Kidd Lymphocytes (Bld) [#/Vol] 1.283 10*3/uL Normal 850-3900 [facility] Comment on above: Performed By: #### 99871, 6399, 44035 ## ## [facility] [address] [place] [address] Business Continuity Consultant: Preston Kidd Lymphocytes/100 WBC (Bld) 18.6 % Normal [facility] Comment on above: Performed By: #### 09106, 6399, 15818 ## ## [facility] [address] Business Continuity Consultant: Preston Kidd MCH (RBC) [Entitic mass] 31.3 pg Normal 27.0-33.0 [facility] Comment on above: Performed By: #### 59961, 6399, 75126 ## ## [facility] [address] [place], [place] [address] Business Continuity Consultant: Prestonlance Kidd MCHC (RBC) [Mass/Vol] 33.7 g/dL Normal 32.0-36.0 [facility] Comment on above: Performed By: #### 51566, 6399, 06401 ## ## [facility] [address] Business Continuity Consultant: Preston E Cotes MCV (RBC) [Entitic vol] 93.1 fL Normal 80.0-100.0 [facility] Comment on above: Performed By: #### 88068, 6399, 57123 ## ## [facility]-[address] Business Continuity Consultant: Preston E Cotes Monocytes (Bld) [#/Vol] 0.69 10*3/uL Normal 200-950 [facility] Comment on above: Performed By: #### 73110, 6399, 00721 ## ## [facility]-[address] Business Continuity Consultant: Preston E Cotes Monocytes/100 WBC (Bld) 10.0 % Normal [facility] Comment on above: Performed By: #### 23304, 6399, 50093 ## ## [facility] Business Continuity Consultant: Preston E Cotes Neutrophils (Bld) [#/Vol] 4.444 10*3/uL Normal 9078-1861 [facility] Comment on above: Performed By: #### 29515, 6399, 53642 ## ## [facility]-[address] Business Continuity Consultant: Preston E Cotes Neutrophils/100 WBC (Bld) 64.4 % Normal [facility] Comment on above: Performed By: #### 23397, 6399, 74048 ## ## [facility]-[address] Business Continuity Consultant: Preston E Cotes Platelet mean volume (Bld) [Entitic vol] 9.5 fL Normal 7.5-12.5 [facility] Comment on above: Performed By: #### 33596, 6399, 79153 ## ## [facility]-[address] Business Continuity Consultant: Preston E Cotes Platelets (Bld) [#/Vol] 183 10*3/uL Normal 140-400 [facility] Comment on above: Performed By: #### 82572, 6399, 85293 ## ## [facility] [address] [place], [place] [id number] Business Continuity Consultant: Preston Kidd RBC (Bld) [#/Vol] 4.50 10*6/uL Normal 4.20-5.80 [facility] Comment on above: Performed By: #### 71871, 6399, 79018 ## ## [facility]-[address] Business Continuity Consultant: Preston Kidd WBC (Bld) [#/Vol] 6.9 10*3/uL Normal 3.8-10.8 [facility] Comment on above: Performed By: #### 81203, 6399, 80332 ## ## [facility] [address] [place] [address] Business Continuity Consultant: Preston Kidd COMPREHENSIVE METABOLIC PANE [facility] 04-22-2023 Albumin [Mass/Vol] 3.9 g/dL Normal 3.6-5.1 [facility] Comment on above: Performed By: #### 98668, 6399, 40737 ## ## [facility] [address] [place], [place] [id number] Business Continuity Consultant: Preston Kidd Albumin/Globulin [Mass ratio] 1.6 {ratio} Normal 1.0-2.5 [facility] Comment on above: Performed By: #### 18520, 6399, 59833 ## ## [facility]-[address] Business Continuity Consultant: Preston Kidd ALP [Catalytic activity/Vol] 53 U/L Normal 35-144 [facility] Comment on above: Performed By: #### 22859, 6399, 26805 ## ## [facility] [address] [place], [place] [phone] Business Continuity Consultant: Preston Kidd ALT [Catalytic activity/Vol] 24 U/L Normal 9-46 [facility] Comment on above: Performed By: #### 32844, 6399, 76154 ## ## [facility] [address] [place], [place] [address] Business Continuity Consultant: Preston Kidd AST [Catalytic activity/Vol] 36 U/L High 10-35 [facility] Comment on above: Performed By: #### 37492, 6399, 64282 ## ## [facility] [address] [place], [place] [address] Business Continuity Consultant: Preston E Cotes Bilirubin [Mass/Vol] 0.6 mg/dL Normal 0.2-1.2 [facility] Comment on above: Performed By: #### 26127, 6399, 39482 ## ## [facility] [address] [place], [place] [address] Business Continuity Consultant: Preston E Cotes BUN/CREATININE RATIO NOT APPLICABLE Normal 6-22 [facility] Comment on above: Performed By: #### 29472, 6399, 65218 ## ## [facility] [address] Business Continuity Consultant: Preston E Cotes Calcium [Mass/Vol] 9.0 mg/dL Normal 8.6-10.3 [facility] Comment on above: Performed By: #### 72201, 6399, 11833 ## ## [facility] [address] [place], [place] [address] Business Continuity Consultant: Preston E Cotes Chloride [Moles/Vol] 104 mmol/L Normal 98-110 [facility] Comment on above: Performed By: #### 32521, 6399, 90834 ## ## [facility] [address] [place], [place] [address] Business Continuity Consultant: Preston E Cotes CO2 [Moles/Vol] 27 mmol/L Normal 20-32 [facility] Comment on above: Performed By: #### 90081, 6399, 10212 ## ## [facility] [address] [place], [place] [address] Business Continuity Consultant: Preston E Cotes Creatinine [Mass/Vol] 1.05 mg/dL Normal 0.70-1.22 [facility] Comment on above: Performed By: #### 10607, 6399, 45385 ## ## [facility] [address] [place], [place] [address] Business Continuity Consultant: Preston E Cotes GFR/1.73 sq M.predicted among non-blacks MDRD (S/P/Bld) [Vol rate/Area] 71 mL/min/{1.73_m2} Normal > OR = 60 [facility] Comment on above: Result Comment: The eGFR is based on the CKD-EPI 2020 equation. To calculate the new eGFR from a previous Creatinine or Cystatin C result, go to https://www.kidney.org/professionals/ kdoqi/gfr%5Fcalculator Performed By: #### 2 9891, 6399, 02776 #### [facility] [address] [place], [place] [address] Business Continuity Consultant: Preston E Cotes Globulin (S) [Mass/Vol] 2.5 g/dL Normal 1.9-3.7 [facility] Comment on above: Performed By: #### 69560, 6399, 44073 ## ## [facility] [address] [place], [place] [address] Business Continuity Consultant: Preston E Cotes Glucose [Mass/Vol] 89 mg/dL Normal 65-99 [facility] Comment on above: Result Comment: Fasting reference interval Performed By: #### 2 9891, 6399, 99478 #### [facility]-[address] Business Continuity Consultant: Preston E Cotes Potassium [Moles/Vol] 4.2 mmol/L Normal 3.5-5.3 [facility] Comment on above: Performed By: #### 71604, 6399, 08029 ## ## [facility] [address] [place], [place] [address] Business Continuity Consultant: Preston E Cotes Protein [Mass/Vol] 6.4 g/dL Normal 6.1-8.1 [facility] Comment on above: Performed By: #### 91705, 6399, 13147 ## ## [facility] [address] [place], [place] [phone] Business Continuity Consultant: Preston E Cotes Sodium [Moles/Vol] 138 mmol/L Normal 135-146 [facility] Comment on above: Performed By: #### 43804, 6399, 04149 ## ## [facility] [address] [place], [place] [address] Business Continuity Consultant: Preston Kidd Urea nitrogen [Mass/Vol] 13 mg/dL Normal 7-25 [facility] Comment on above: Performed By: #### 51362, 6399, 98543 ## ## [facility] [address] [place] [phone] Business Continuity Consultant: Preston Kidd SED RATE BY IZABELA IBARRAon 04-22-2023 COMMENT Normal [facility] Comment on above: Result Comment: Please be advised that t rapid response lab received your order for test code 809 - ESR, Automated. The automated ESR is not performed at this site[place] [address] and a manual ESR was performed. Billing has been changed as appropriate. Performed By: #### 2 9891, 6399, 73415 #### [facility] [address] [place] [phone] Business Continuity Consultant: Preston Kidd SED RATE BY IZABELA GREGORY 9 mm/h Normal < OR = 20 [facility] Comment on above: Performed By: #### 32354, 6399, 95540 ## ## [facility] [address] [place] [phone] Business Continuity Consultant: Preston Kidd Ambulatory Visit Summaryon 0 03-14-2023 Ambulatory Visit Summary ANGELES TOMAS M :1940 Visit Date:03/14/2023 Ambulatory Visit Instructions Your Diagnosis BPH with urinary obstruction Feeling of incomplete bladder emptying Urinary frequency Erectile dysfunction Tests Performed Urnls Dip Stick Auto w/o Microscopy POC 97689 Your Care Team Attending Physician - AIXA MARITN, Piter Colon Primary Care Physician - LEONARDA [...] MARTIN, Piter Colon Where: [facility] Urology Office/Clinic Noteon 03-14-2023 Urology Office/Clinic Note [...] [facility] [address], [place] [address]- Additional Instructions: 8 mos Patient Education Benign [...] release, Or (more content not included)... Normal [facility] Comment on above: Result Comment: Electronically [...] Follow these instructions at home: ? Take [id number]-ufamowm and prescription medicines only as told by [...] the medicine (more content not included)... Normal [facility] XR Chest 2 Views*on 12-05-19 23 [...] by Vamshi Whatley on 12/05/2022 1456 Normal [facility] US Renal/Bladderon US Renal/Bladder HISTORY: Left lower quadrant pain FINDINGS: Right Hfomts16.0 x 5.5 x 5.7 cm Left Qeymun28.8 x 4.7 x 5.5 cm Full bladder [...] by Vamshi Whatley on 08/21/2022 0717 Normal [facility] XR Abdomen Single View (KUB) [...] by Vamshi Whatley on 08/21/2022 0714 Normal [facility] Complete Blood Count with Au to Diffon 04-25-2022 Basophils (Bld) [#/Vol] 0.06 10*3/uL Normal 0.00-0.20 [facility] Comment on above: Performed By: #### ESR, CBCAD #### [facility] [address] [place], [place] [id number] Basophils/100 WBC (Bld) 0.8 % Normal [facility] Comment on above: Performed By: #### ESR, CBCAD #### [facility] [address] [place], [place] [id number] Eosinophils (Bld) [#/Vol] 0.13 10*3/uL Normal 0.02-0.50 [facility] Comment on above: Performed By: #### ESR, CBCAD #### [facility] [address] [place], [place] [id number] Eosinophils/100 WBC (Bld) 1.7 % Normal [facility] Comment on above: Performed By: #### ESR, CBCAD #### [facility] [address] [place], [place] [id number] Erythrocyte distribution width (RBC) [Ratio] 12.3 % Normal 11.0-15.0 [facility] Comment on above: Performed By: #### ESR, CBCAD #### [facility] [address], [place] [id number] Hematocrit (Bld) [Volume fraction] 44.5 % Normal 38.5-50.0 [facility] Comment on above: Performed By: #### ESR, CBCAD #### [facility] [address] [place], [place] [id number] Hemoglobin (Bld) [Mass/Vol] 14.1 g/dL Normal 13.0-17.1 [facility] Comment on above: Performed By: #### ESR, CBCAD #### [facility] [address] [place], [place] [id number] Lymphocytes (Bld) [#/Vol] 1.1 10*3/uL Normal 0.9-3.9 [facility] Comment on above: Performed By: #### ESR, CBCAD #### [facility] [address] [place], [place] [id number] Lymphocytes/100 WBC (Bld) 14.7 % Normal [facility] Comment on above: Performed By: #### ESR, CBCAD #### [facility] [address], [place] [id number] MCH (RBC) [Entitic mass] 30.7 pg Normal 27.0-33.0 [facility] Comment on above: Performed By: #### ESR, CBCAD #### [facility] [address] [place], [place] [id number] MCHC (RBC) [Mass/Vol] 31.7 g/dL Low 32.0-36.0 [facility] Comment on above: Performed By: #### ESR, CBCAD #### [facility] [address] [place], [place] [id number] MCV (RBC) [Entitic vol] 97 fL Normal 80-100 [facility] Comment on above: Performed By: #### ESR, CBCAD #### [facility] [address] [place], [place] [id number] Monocytes (Bld) [#/Vol] 0.5 10*3/uL Normal 0.2-0.9 [facility] Comment on above: Performed By: #### ESR, CBCAD #### [facility] [address] [place], [place] [id number] Monocytes/100 WBC (Bld) 6.1 % Normal [facility] Comment on above: Performed By: #### ESR, CBCAD #### [facility] [address] [place], [place] [id number] Neutrophils (Bld) [#/Vol] 5.7 10*3/uL Normal 1.5-7.8 [facility] Comment on above: Performed By: #### ESR, CBCAD #### [facility] [address] [place], [place] [id number] Neutrophils/100 WBC (Bld) 75.8 % Normal [facility] Comment on above: Performed By: #### ESR, CBCAD #### [facility] [address] [place], [place] [id number] Platelet mean volume (Bld) [Entitic vol] 9.80 fL Normal 7.50-12.50 [facility] Comment on above: Performed By: #### ESR, CBCAD #### [facility] [address] [place], [place] [id number] Platelets (Bld) [#/Vol] 233 10*3/uL Normal 140-400 [facility] [facility] Comment on above: Performed By: #### ESR, CBCAD #### [facility] [address] [place], [place] [id number] RBC (Bld) [#/Vol] 4.59 10*6/uL Normal 4.20-5.80 [facility] Comment on above: Performed By: #### ESR, CBCAD #### [facility] [address] [place], [place] [id number] RDW-SD 44.2 fL Normal 37.0-50.0 [facility] Comment on above: Performed By: #### ESR, CBCAD #### [facility] [address] [place], [place] [id number] WBC (Bld) [#/Vol] 7.5 10*3/uL Normal 3.8-11.0 [facility] Comment on above: Performed By: #### ESR, CBCAD #### [facility] [address] [place], [place] [id number] Comprehensive Metabolic Pane [facility] 04-25-2022 Albumin [Mass/Vol] 4.2 g/dL Normal 3.6-5.1 [facility] Comment on above: Performed By: #### LIPD, TSH reflex FT4, CMP #### [facility] [address] [place], [place] [id number] Albumin/Globulin [Mass ratio] 1.7 {ratio} Normal 1.0-2.5 [facility] Comment on above: Performed By: #### LIPD, TSH reflex FT4, CMP #### [facility] [address] [place], [place] [id number] ALP [Catalytic activity/Vol] 74 U/L Normal 40-129 [facility] Comment on above: Performed By: #### LIPD, TSH reflex FT4, CMP #### [facility] [address] [place], [place] [id number] ALT [Catalytic activity/Vol] 27 U/L Normal 9-46 [facility] Comment on above: Result Comment: 10/24/2021 Female referen ce range changed. Performed By: #### L IPD, TSH reflex FT4, CMP #### [facility] [address] [place], [place] [id number] Anion gap [Moles/Vol] 18 mmol/L Normal 12-20 [facility] Comment on above: Result Comment: Effective 11/29/2019 refer ence range changed. Performed By: #### L IPD, TSH reflex FT4, CMP #### [facility] [address] [place], [place] [id number] AST [Catalytic activity/Vol] 27 U/L Normal 10-40 [facility] Comment on above: Performed By: #### LIPD, TSH reflex FT4, CMP #### [facility] [address] [place], [place] [id number] Bilirubin [Mass/Vol] 0.33 mg/dL Normal 0.30-1.20 [facility] Comment on above: Performed By: #### LIPD, TSH reflex FT4, CMP #### [facility] [address] [place], [place] [id number] BUN/CREA 21 Ratio Normal 6-22 [facility] Comment on above: Performed By: #### LIPD, TSH reflex FT4, CMP #### [facility] [address] [place], [place] [id number] Calcium [Mass/Vol] 9.3 mg/dL Normal 8.6-10.2 [facility] Comment on above: Performed By: #### LIPD, TSH reflex FT4, CMP #### [facility] [address] [place], [place] [id number] Chloride [Moles/Vol] 105 mmol/L Normal 98-107 [facility] Comment on above: Performed By: #### LIPD, TSH reflex FT4, CMP #### [facility] [address], [place] [id number] CO2 [Moles/Vol] 22 mmol/L Normal 20-31 [facility] Comment on above: Performed By: #### LIPD, TSH reflex FT4, CMP #### [facility] [address] [place], [place] [id number] Creatinine [Mass/Vol] 0.9 mg/dL Normal 0.7-1.4 [facility] Comment on above: Performed By: #### LIPD, TSH reflex FT4, CMP #### [facility] [address] [place], [place] [id number] eGFRAA 95 mL/min/1.73m2 Normal >60 [facility] Comment on above: Performed By: #### LIPD, TSH reflex FT4, CMP #### [facility] [address], [place] [id number] eGFRNAA 78 mL/min/1.73m2 Normal >60 [facility] Comment on above: Performed By: #### LIPD, TSH reflex FT4, CMP #### [facility] [address] [place], [place] [id number] Globulin (S) [Mass/Vol] 2.5 g/dL Normal 1.9-3.7 [facility] Comment on above: Performed By: #### LIPD, TSH reflex FT4, CMP #### [facility] [address], [place] [id number] Glucose [Mass/Vol] 107 mg/dL High 65-99 [facility] Comment on above: Result Comment: For FASTING Glucose --- ADA reference ranges: Normal 65-99 mg/dl Prediabetes 100-125 Diabetes >/= 126 Performed By: #### L IPD, TSH reflex FT4, CMP #### [facility] [address] [place], [place] [id number] Potassium [Moles/Vol] 4.3 mmol/L Normal 3.5-5.5 [facility] Comment on above: Performed By: #### LIPD, TSH reflex FT4, CMP #### [facility] [address] [place], [place] [id number] Protein [Mass/Vol] 6.7 g/dL Normal 6.1-8.1 [facility] Comment on above: Performed By: #### LIPD, TSH reflex FT4, CMP #### [facility] [address], [place] [id number] Sodium [Moles/Vol] 140 mmol/L Normal 135-146 [facility] Comment on above: Performed By: #### LIPD, TSH reflex FT4, CMP #### [facility] [address], [place] [id number] Urea nitrogen [Mass/Vol] 20 mg/dL Normal 7-25 [facility] Comment on above: Performed By: #### LIPD, TSH reflex FT4, CMP #### [facility] [address], [place] [id number] Hemoglobin A1Con 04-25-2022 EAG 128.37 Normal [facility] Comment on above: Performed By: #### A1C #### [facility] [address], [place] [id number] HbA1c (Bld) [Mass fraction] 6.1 % High 4.0-6.0 [facility] Comment on above: Performed By: #### A1C #### [facility] [address], [place] [id number] Lipid Panelon 04-25-2022 Cholesterol [Mass/Vol] 224 mg/dL High 125-200 [facility] Comment on above: Result Comment: Low risk < 200mg/dL Borderline risk 201-239 mg/dl High risk > or equal to 240 Performed By: #### L IPD, TSH reflex FT4, CMP #### [facility] [address], [place] [id number] Cholesterol in HDL [Mass/Vol] 45 mg/dL Normal >40 [facility] Comment on above: Result Comment: High Cardiovascular Risk HDL <40 mg/dL Low Cardiovascular Risk HDL > or equal to 60 mg/dl Performed By: #### L IPD, TSH reflex FT4, CMP #### [facility] [address], [place] [id number] Cholesterol in LDL [Mass/Vol] 150 mg/dL Normal [facility] Comment on above: Result Comment: LDL ATP III CLASSIFICATI ON LDL less than 100 mg/dl Optimal LDL 100-129 mg/dl Near or above optimal LDL 130-159 Borderline high LDL 160-189 High LDL greater than 189 mg/dl Very High Performed By: #### L IPD, TSH reflex FT4, CMP #### [facility] [address], [place] [id number] Cholesterol in VLDL [Mass/Vol] 29 mg/dL Normal [facility] Comment on above: Performed By: #### LIPD, TSH reflex FT4, CMP #### [facility] [address] [place], [place] [id number] Cholesterol.tota l/Cholesterol in HDL [Mass ratio] 5 {ratio} Normal [facility] Comment on above: Performed By: #### LIPD, TSH reflex FT4, CMP #### [facility] [address], [place] [id number] Triglyceride [Mass/Vol] 144 mg/dL Normal 30-150 [facility] Comment on above: Result Comment: TRIG ATPIII CLASSIFICATI ONS TRIG less than 150 mg/dl Normal TRIG 150-199 mg/dl Borderline High TRIG 200-500 mg/dl High TRIG greather than 500 mg/dl Very High Performed By: #### L IPD, TSH reflex FT4, CMP #### [facility] [address], [place] [id number] RBC Sedimentation Rateon ESR (Bld) [Velocity] 32.00 mm/h High 0.00-20.00 [facility] Comment on above: Performed By: #### ESR, CBCAD #### [facility] [address], [place] [id number] TSH w/ Reflex to Free T4on 0 04-25-2022 TSH 1.420 uIU/mL Normal 0.400-4.500 [facility] Comment on above: Performed By: #### LIPD, TSH reflex FT4, CMP #### [facility] [address], [place] [id number] Complete Blood Count with Au to Diffon 01-11-2022 Basophils (Bld) [#/Vol] 0.15 10*3/uL Normal 0.00-0.20 [facility] Comment on above: Performed By: #### ESR, CBCAD, CMP #### [facility] [address], [place] [id number] Basophils/100 WBC (Bld) 1.6 % Normal [facility] Comment on above: Performed By: #### ESR, CBCAD, CMP #### [facility] [address], [place] [id number] Eosinophils (Bld) [#/Vol] 0.19 10*3/uL Normal 0.02-0.50 [employer] [facility] [employer] [facility] Comment on above: Performed By: #### ESR, CBCAD, CMP #### [facility] [address], [place] [id number] Eosinophils/100 WBC (Bld) 2.0 % Normal [facility] Comment on above: Performed By: #### ESR, CBCAD, CMP #### [facility] [address], [place] [id number] Erythrocyte distribution width (RBC) [Ratio] 12.2 % Normal 11.0-15.0 [facility] Comment on above: Performed By: #### ESR, CBCAD, CMP #### [facility] [address], [place] [id number] Hematocrit (Bld) [Volume fraction] 43.2 % Normal 38.5-50.0 [facility] Comment on above: Performed By: #### ESR, CBCAD, CMP #### [facility] [address], [place] [id number] Hemoglobin (Bld) [Mass/Vol] 14.3 g/dL Normal 13.0-17.1 [facility] Comment on above: Performed By: #### ESR, CBCAD, CMP #### [facility] [address], [place] [id number] Lymphocytes (Bld) [#/Vol] 0.9 10*3/uL Normal 0.9-3.9 [facility] Comment on above: Performed By: #### ESR, CBCAD, CMP #### [facility] [address], [place] [id number] Lymphocytes/100 WBC (Bld) 10.0 % Normal [facility] Comment on above: Performed By: #### ESR, CBCAD, CMP #### [facility] [address], [place] [id number] MCH (RBC) [Entitic mass] 31.8 pg Normal 27.0-33.0 [facility] Comment on above: Performed By: #### ESR, CBCAD, CMP #### [facility] [address], [place] [id number] MCHC (RBC) [Mass/Vol] 33.1 g/dL Normal 32.0-36.0 [facility] Comment on above: Performed By: #### ESR, CBCAD, CMP #### [facility] [address], [place] [id number] MCV (RBC) [Entitic vol] 96 fL Normal 80-100 [facility] Comment on above: Performed By: #### ESR, CBCAD, CMP #### [facility] [address], [place] [id number] Monocytes (Bld) [#/Vol] 0.6 10*3/uL Normal 0.2-0.9 [facility] Comment on above: Performed By: #### ESR, CBCAD, CMP #### [facility] [address], [place] [id number] Monocytes/100 WBC (Bld) 6.1 % Normal [facility] Comment on above: Performed By: #### ESR, CBCAD, CMP #### [facility] [address], [place] [id number] Neutrophils (Bld) [#/Vol] 7.5 10*3/uL Normal 1.5-7.8 [facility] Comment on above: Performed By: #### ESR, CBCAD, CMP #### [facility] [address], [place] [id number] Neutrophils/100 WBC (Bld) 79.8 % Normal [facility] Comment on above: Performed By: #### ESR, CBCAD, CMP #### [facility] [address], [place] [id number] Platelet mean volume (Bld) [Entitic vol] 9.70 fL Normal 7.50-12.50 [facility] Comment on above: Performed By: #### ESR, CBCAD, CMP #### [facility] [address], [place] [id number] Platelets (Bld) [#/Vol] 278 10*3/uL Normal 140-400 [facility] Comment on above: Performed By: #### ESR, CBCAD, CMP #### [facility] [address], [place] [id number] RBC (Bld) [#/Vol] 4.49 10*6/uL Normal 4.20-5.80 [employer] Comment on above: Performed By: #### ESR, CBCAD, CMP #### [facility] [address], [place] [id number] RDW-SD 43.9 fL Normal 37.0-50.0 [facility] [employer] Comment on above: Performed By: #### ESR, CBCAD, CMP #### [facility] [address], [place] [id number] WBC (Bld) [#/Vol] 9.4 10*3/uL Normal 3.8-11.0 [facility] [employer] [facility] Comment on above: Performed By: #### ESR, CBCAD, CMP #### [facility] [address], [place] [id number] Comprehensive Metabolic Pane victor hugo 01-11-2022 Albumin [Mass/Vol] 4.1 g/dL Normal 3.6-5.1 [facility] [employer] Comment on above: Performed By: #### ESR, CBCAD #### [facility] [address], [place] [id number] Albumin/Globulin [Mass ratio] 2.0 {ratio} Normal 1.0-2.5 [facility] [employer] Comment on above: Performed By: #### ESR, CBCAD #### [facility] [address], [place] [id number] ALP [Catalytic activity/Vol] 73 U/L Normal 40-129 [facility] [employer] [facility] Comment on above: Performed By: #### ESR, CBCAD #### [facility] [address], [place] [id number] ALT [Catalytic activity/Vol] 22 U/L Normal 9-46 [facility] [employer] [facility] Comment on above: Result Comment: 10/24/2021 Female referen ce range changed. Performed By: #### E SR, CBCAD #### [facility] [address], [place] [id number] Anion gap [Moles/Vol] 21 mmol/L High 12-20 [facility] [employer] Comment on above: Result Comment: Effective 11/29/2019 refer ence range changed. Performed By: #### E SR, CBCAD #### [facility] [address], [place] [id number] AST [Catalytic activity/Vol] 23 U/L Normal 10-40 [facility] Comment on above: Performed By: #### ESR, CBCAD #### [facility] [address], [place] [id number] Bilirubin [Mass/Vol] 0.31 mg/dL Normal 0.30-1.20 [facility] Comment on above: Performed By: #### ESR, CBCAD #### [facility] [address], [place] [id number] BUN/CREA 21 Ratio Normal 6-22 [facility] Comment on above: Performed By: #### ESR, CBCAD #### [facility] [address], [place] [id number] Calcium [Mass/Vol] 9.1 mg/dL Normal 8.6-10.2 [facility] Comment on above: Performed By: #### ESR, CBCAD #### [facility] [address], [place] [id number] Chloride [Moles/Vol] 105 mmol/L Normal 98-107 [facility] Comment on above: Performed By: #### ESR, CBCAD #### [facility] [address], [place] [id number] CO2 [Moles/Vol] 19 mmol/L Low 20-31 [facility] Comment on above: Performed By: #### ESR, CBCAD #### [facility] [address], [place] [id number] Creatinine [Mass/Vol] 0.9 mg/dL Normal 0.7-1.4 [facility] Comment on above: Performed By: #### ESR, CBCAD #### [facility] [address], [place] [id number] eGFRAA 104 mL/min/1.73m2 Normal >60 [facility] Comment on above: Performed By: #### ESR, CBCAD #### [facility] [address], [place] [id number] eGFRNAA 86 mL/min/1.73m2 Normal >60 [facility] Comment on above: Performed By: #### ESR, CBCAD #### [facility] [address], [place] [id number] Globulin (S) [Mass/Vol] 2.1 g/dL Normal 1.9-3.7 [facility] Comment on above: Performed By: #### ESR, CBCAD #### [facility] [address], [place] [id number] Glucose [Mass/Vol] 112 mg/dL High 65-99 [facility] Comment on above: Result Comment: For FASTING Glucose --- ADA reference ranges: Normal 65-99 mg/dl Prediabetes 100-125 Diabetes >/= 126 Performed By: #### E SR, CBCAD #### [facility] [address], [place] [id number] Potassium [Moles/Vol] 4.6 mmol/L Normal 3.5-5.5 [facility] Comment on above: Result Comment: Specimen is hemolyzed. R esults may be affected. Performed By: #### E SR, CBCAD #### [facility] [address], [place] [id number] Protein [Mass/Vol] 6.2 g/dL Normal 6.1-8.1 [facility] Comment on above: Performed By: #### ESR, CBCAD #### [facility] [address], [place] [id number] Sodium [Moles/Vol] 140 mmol/L Normal 135-146 [facility] Comment on above: Performed By: #### ESR, CBCAD #### [facility] [address], [place] [id number] Urea nitrogen [Mass/Vol] 18 mg/dL Normal 7-25 [facility] Comment on above: Performed By: #### ESR, CBCAD #### [facility] [address], [place] [id number] RBC Sedimentation Rateon ESR (Bld) [Velocity] 15.00 mm/h Normal 0.00-20.00 [facility] Comment on above: Performed By: #### ESR, CBCAD #### [facility] [address], [place] [id number] Covid-19 PCR (CVDTB)on 11-25 SARS-CoV-2 (COVID-19) RNA SHERRI+probe Ql (Unsp spec) Not detected Normal NOT DETECTED [facility] Comment on above: Result Comment: This test is not yet kenji roved or cleared by the [place] FDA. When there are no FDA-approved or cleared tests available, and other criteria are met, FDA can make tests available under an emergency access mechanism called an Emergency Use Authorization (EUA). The EUA for this test is supported by the Budget Examiner of Health and Human Service's (HHS's) declaration [...] consistent with SARS-CoV-2. Performed By: #### [facility] #### [facility] [address] [place] [address] Dr. Edith Mooney Covid-19 PCR ([facility])on SARS-CoV-2 (COVID-19) RNA SHERRI+probe Ql (Unsp spec) Not detected Normal NOT DETECTED [facility] Comment on above: Result Comment: This test is not yet kenji roved or cleared by the [place] FDA. When there are no FDA-approved or cleared tests available, and other criteria are met, FDA can make tests available under an emergency access mechanism called an Emergency Use Authorization (EUA). The EUA for this test is supported by the Budget Examiner of Health and Human Service's (HHS's) declaration [...] consistent with SARS-CoV-2. Performed By: #### C [facility] #### [facility] [address] [place], [place] [id number] Dr. Edith Mooney MANAGER SWITCH polysom split nighton MANAGER SWITCH polysom split night [facility] [place] [address] Sleep Lab Report Signed Patient: Tomas Reynoso MR#: [id number] 1 : 1940 Acct:[id number] Age/Sex: 80 / M ADM Date: 06/08/21 Loc: Room: Type: [facility] Attending Dr: Isreal Loera MD Ordering Provider: [...] The patient was referred by his primary director group sales for titration polysomnography regarding previously documented obstructive [...] be followed by the ordering and managing director group sales, and further adjustments may prove advisable, particularly if central apneas persist. 4. The patient should ensure adequate total sleep time and regular sleep-wake cycles. The principles of appropriate sleep hygiene should be encouraged. 5. The patient should continue efforts at progressive weight loss. Even moderate weight loss can result in significant improveme (more content not included)... Normal [facility] CNOVon 08-08-2017 CNOV Office Visit (PAINLN) -TOMAS REYNOSO ([id number]) 1940 MDate Time Provider Department08/08/17 9:30 AM MICAELA FALK) DIEGO During your visit today, we recorded the following information about you: Blood pressure Weight Height 102/80 99.3 kg 1.753 Jose Mcclendon 08/08/2017 8:36 AM AddendumDiscontinue your Aleve (Naproxen) and begin Dolobid may take 1 tab 2 times aday as neededN[facility] FA[facility]SLAB HOURS: Lab is open 7:30am to 6pm M-TH, open 7:30am -5pm on Friday and [id number] Friday.Routine Lab Orders 45 days after they [...] supervised home exercise program (HEP): No 5. Scratcher: NoPassive conservative therapy lasting 6 weeks in the last six months (see below) 1. Medical devises: No 2. Acupuncture: No 3. Tens unit: No 4. Prescription pain medication: No 5. NSAIDS: NoTREATMENTS:Cortisone injectionInversion tableI agree with the Chief Complaint, ROS, and Past Histories independentlygathered by the clinical application support developer annotations made and the remaining noteaccurately describes my personal service to the patient.SONALI Archer-CIMAGING:ImpressionIMPRESS ION:Marked thoracolumbar dextroscoliosis centered at L1.No significant thoracic canal or foraminal narrowing.Multilevel degenerative changes of the lumbar spine with mild-moderatecanal stenosis at L2-3 and multilevel mild to moderate neural foraminalnarrowing as detailed.Environmental Science Professor: KALYAN ?Transcribe Date/Time: May 13 2017 ?9:55ADictated [...] 2016Supervising Physician: Dr. RuvalcabaReferrveena Provider: ENEDELIA RUVALCABA [[id number]]Allergies As of Date: 08/08/2017(No Known Allergies)Date Reviewed: [...] tab 2 times a day as needed [facility] FACTS LAB HOURS: Lab is open [...] mouth twice daily. Disc: Clinical DecisionEncounter Number: [id number] Status:Closed by MICAELA FALK PA-C on 08/08/17 Normal [facility] PROGRESSon 08-08-2017 PROGRESS HNO ID: [id number] thor: Micaela Adair (Pa)miKwanervice: (none)Author Type: Physician [...] supervised home exercise program (HEP): No 5. Scratcher: NoPassive conservative therapy lasting 6 weeks in the last six months (seebelow) 1. Medical devises: No 2. Acupuncture: No 3. Tens unit: No 4. Prescription pain medication: No 5. NSAIDS: NoTREATMENTS:Cortisone injectionInversion tableI agree with the Chief Complaint, ROS, and Past Histories independentlygathered by the clinical application support developer annotations made and the remainingnote accurately describes my personal service to the patient.SONALI Archer-CIMAGING:ImpressionIMPRESS ION:Marked thoracolumbar dextroscoliosis centered at L1.No significant thoracic canal or foraminal narrowing.Multilevel degenerative changes of the lumbar spine with mild-moderatecanal stenosis at L2-3 and multilevel mild to moderate neural foraminalnarrowing as detailed.Environmental Science Professor: KALYAN ?Transcribe Date/Time: May 13 2017 ?9:55ADictated [...] answered.SONALI Archer-CSeptember 2016Supervising Physician: Dr. Peg Andres [facility] HISTORY PHYSICALon 7 HISTORY PHYSICAL HNO ID: [id number] thor: Renu Bolton ([facility]) SheppardService: (none)Author Type: Nurse PractitionerType: HANDPFiled: [...] 20, 2017 : 8:42 AM PAGER: Normal [facility] OPERATIVE NOon 06-20-2017 OPERATIVE NO HNO ID: [id number] thor: Enedelia Gottiervice: Pain ManagementAuthor Type: PhysicianType: Operative ReportFiled: 06/20/2017 9:11 AMNote Text:Patient Name Medical Record #Tomas Reynoso [id number] of : 1940 Admit Date: June 20, 2017Sex / Age: male/76 year old Discharge Date: June 20, 2017Date: June 20, 2017Attending Physician: Enedelia Ruvalcaba MDService: Pain ManagmentLOG ID: [id number]/Procedure Date: 06/20/2017Incision/Procedure Start Time: 8:52 AMIncision Close/Procedure [...] Quinke needle was slowly inserted and advancedusing zirj-ib-lzxcernajq technique to air with AP and Obliquefluoroscopic [...] Ruvalcaba MD, performed the entire procedure.ASSESSMENT AND PLAN:Tomas Day [place] is status post LEFT L2-L3 Transforaminal epidural steroidinjection )L 2-3 interlaminar calcification.He did very well without any apparent complications.He is to return to clinic in 6 weeks for follow up.Postoperative instructions were given.He voiced understanding, and he was taken to the recovery room in stablecondition.Shruthi Lew ManagementJuly 2016 [facility] PT EDon 06-20-2017 PT ED HNO ID: [id number] thor: Ava (Rn) Rogelio, RNService: (none)Author Type: Registered NurseType: Patient EducationFiled: 06/20/2017 9:31 AMNote Text:[facility] PATIENT EDUCATION NOTEREADINESS TO LEARNCOGNITIVE [...] By Ava Mercado RN In Department: AMBULATORYSURGERY [facility] CNOVon 06-05-2017 CNOV Office Visit (PAINLN) -ANGELESTOMAS M ([id number]) 1940 MDate Time Provider Department06/05/17 9:15 AM [...] supervised home exercise program (HEP): No 5. Scratcher: NoPassive conservative therapy lasting 6 weeks in the last six months (see below) 1. Medical devises: No 2. Acupuncture: No 3. Tens unit: No 4. Prescription pain medication: No 5. NSAIDS: Yes: Started years ago Ended currently uses as neededTREATMENTS:AleveInversi on boardBack supportI agree with the Chief Complaint, ROS, and Past Histories independentlygathered by the clinical application support developer annotations made and the remaining noteaccurately describes my personal service to the patient.SONALI Archer-CIMAGIN05/13/2017 11:08 AM - Interface, Results InImpressionIMPRESSION:Marked thoracolumbar dextroscoliosis centered at L1.No significant thoracic canal or foraminal narrowing.Multilevel degenerative changes of the lumbar spine with mild-moderatecanal stenosis at L2-3 and multilevel mild to moderate neural foraminalnarrowing as detailed.Environmental Science Professor: KALYAN ?Transcribe Date/Time: May 13 2017 ?9:55ADictated [...] disc disease), lumbar [M51.36]Order(s):SURGICAL REQUEST - ELECTIVE [[id number]] Order #: [id number]: 1Prescriptions as of 06/05/2017 Sig: VITAMIN C [...] Status:Closed by ENEDELIA RUVALCABA MD on 06/05/17 [facility] 06-05-2017 HOSP Patient:Tomas Reynoso MMRN: Height:5' 9 [...] supervised home exercise program (HEP): No 5. Scratcher: NoPassive conservative therapy lasting 6 weeks in the last six months (see below) 1. Medical devises: No 2. Acupuncture: No 3. Tens unit: No 4. Prescription pain medication: No 5. NSAIDS: Yes: Started years ago Ended currently uses as neededTREATMENTS:AleveInversi on boardBack supportI agree with the Chief Complaint, ROS, and Past Histories independently gatheredby the clinical application support developer annotations made and the remaining noteaccurately describes my personal service to the patient.SONALI Archer-CIMAGIN05/13/2017 11:08 AM - Interface, Results InImpressionIMPRESSION:Marked thoracolumbar dextroscoliosis centered at L1.No significant thoracic canal or foraminal narrowing.Multilevel degenerative changes of the lumbar spine with mild-moderatecanal stenosis at L2-3 and multilevel mild to moderate neural foraminalnarrowing as detailed.Environmental Science Professor: KALYAN ?Transcribe Date/Time: May 13 2017 ?9:55ADictated [...] Plan as outlined.Enedelia Ruvalcaba, MDPrevious Version Normal [facility] PROGRESSon 06-05-2017 PROGRESS HNO ID: [id number] thor: Enedelia Gottiervice: (none)Author Type: PhysicianType: Progress [...] supervised home exercise program (HEP): No 5. Scratcher: NoPassive conservative therapy lasting 6 weeks in the last six months (seebelow) 1. Medical devises: No 2. Acupuncture: No 3. Tens unit: No 4. Prescription pain medication: No 5. NSAIDS: Yes: Started years ago Ended currently uses as neededTREATMENTS:Jeremie on boardBack supportI agree with the Chief Complaint, ROS, and Past Histories independentlygathered by the clinical application support developer annotations made and the remainingnote accurately describes my personal service to the patient.SONALI Archer-CIMAGIN05/13/2017 11:08 AM - Interface, Results InImpressionIMPRESSION:Marked thoracolumbar dextroscoliosis centered at L1.No significant thoracic canal or foraminal narrowing.Multilevel degenerative changes of the lumbar spine with mild-moderatecanal stenosis at L2-3 and multilevel mild to moderate neural foraminalnarrowing as detailed.Environmental Science Professor: KALYAN ?Transcribe Date/Time: May 13 2017 ?9:55ADictated by : NANDO MITCHELL MDThimonica examination was interpreted and the report reviewed andelectronically signed by:GABRIEL PHILLIPS MD on May 13 2017 11:02AM ?ESTResults-Findings* * *Final Report* * *DATE OF EXAM: May 13 2017 ?9:27AM ?[facility] ? 0303 ?- ?MRI LUMBAR SPINE WO [...] the patient. Plan as outlined.Enedelia Ruvalcaba MD [facility] Vital Signs Date Time Vital Sign Value Performing Clinician Faci lity 12-18-2023 15:09-0500 Body height 180.3 cm [employer] Phone: [facility] 12-18-2023 15:09-0500 Body mass index (BMI) [Ratio] 31.72 kg/m2 [employer] [employer] [employer] Phone: [facility] 12-18-2023 15:09-0500 Body weight 103.15 kg Anusha Hdez [employer] Phone: [facility] 12-18-2023 15:09-0500 Diastolic blood pressure 68 mm[Hg] [employer] [employer] [facility] [employer] Phone: [facility] 12-18-2023 15:09-0500 Heart rate 70 /min Anusha Hdez [employer] Phone: [facility] 12-18-2023 15:09-0500 SaO2% (BldA) [Mass fraction] 96 % [employer]usha [employer] [employer] Phone: [facility] 12-18-2023 15:09-0500 Systolic blood pressure 132 mm[Hg] Anusha Hdez DO Work Phone: [facility] 12-08-2023 15:16-0500 Blood Pressure Location Piter KR[facility] 12-08-2023 15:16-0500 Diastolic blood pressure 78 mm[Hg] [facility]iter [facility] 12-08-2023 15:16-0500 Heart rate 70 /min Piter [facility] 12-08-2023 15:16-0500 Respiratory rate 16 /min [facility]iter [facility] 12-08-2023 15:16-0500 Systolic blood pressure 121 mm[Hg] Piter [facility] 11-26-2023 12:09-0500 Body mass index (BMI) [Ratio] 31.24 kg/m2 Demarco Rebolledo MD Work Phone: [facility] 11-26-2023 12:09-0500 Body weight 101.61 kg Demarco Rebolledo MD Work Phone: [facility] 11-26-2023 12:09-0500 Diastolic blood pressure 68 mm[Hg] Demarco Rebolledo MD Work Phone: [facility] 11-26-2023 12:09-0500 Heart rate 72 /min Demarco Rebolledo MD Work Phone: [facility] 11-26-2023 12:09-0500 Respiratory rate 18 /min Demarco Rebolledo MD Work Phone: [facility] 11-26-2023 12:09-0500 SaO2% (BldA) [Mass fraction] 95 % Demarco Rebolledo MD Work Phone: [facility] 11-26-2023 12:09-0500 Systolic blood pressure 104 mm[Hg] Demarco Rebolledo MD Work Phone: [facility] 12-09-2022 10:49-0500 Blood Pressure Location [facility] 12-09-2022 10:49-0500 Diastolic blood pressure 81 mm[Hg] Piter [facility] 12-09-2022 10:49-0500 Heart rate 76 /min [facility]iter [facility] 12-09-2022 10:49-0500 Respiratory rate 16 /min Piter [facility] 12-09-2022 10:49-0500 Systolic blood pressure 107 mm[Hg] Piter [facility] 08-16-2022 13:36-0400 Blood Pressure Location Lj Xavier [facility] 08-16-2022 13:36-0400 Diastolic blood pressure 83 mm[Hg] Lj Xavier [facility] 08-16-2022 13:36-0400 Heart rate 72 /min Lj Xavier [facility] 08-16-2022 13:36-0400 Respiratory rate 16 /min Lj Xavier [facility] 08-16-2022 13:36-0400 Systolic blood pressure 114 mm[Hg] jL Xavier [facility] 04-19-2022 10:57-0400 Blood Pressure Location Piter [facility] 04-19-2022 10:57-0400 Diastolic blood pressure 76 mm[Hg] Piterfrida [facility] 04-19-2022 10:57-0400 Heart rate 72 /min Piterfrida [facility] 04-19-2022 10:57-0400 Respiratory rate 16 /min Piter KR[facility] 04-19-2022 10:57-0400 Systolic blood pressure 118 mm[Hg] [facility] Encounters Encounter Date Encounter Type Care Provider Facility Start: 01-19-2024 ambulatory Piter Carlsoni ty:CD:[id number] Start: 12-18-2023 End: 12-18-2023 ambulatory [facility] Start: 12-18-2023 End: 12-18-2023 Office outpatient visit 25 minutes [facility] Work Phone: [facility] Comment on above: DURGA (obstructive sle ep apnea) (Primary Dx); SOB (shortness of breath); Restrictive pattern present on pulmonary function testing Start: 12-16-2023 End: 12-17-2023 ambulatory [facility] Start: 12-11-2023 Orders Only Brittany sal[facility] Comment on above: Interstitial lung di sease (CMS-HCC) (Primary Dx) Start: 12-08-2023 End: 12-09-2023 ambulatory LEONARDA FINK Facility:[facility] Start: 12-08-2023 End: 12-08-2023 Patient encounter procedure Piter KR[facility] Start: 11-28-2023 Orders Only Mable Radames salgado [facility] Comment on above: SOB (shortness of br eath) (Primary Dx) Start: 11-26-2023 End: 11-26-2023 ambulatory DEMARCO REBOLLEDO [facility] Start: 11-26-2023 End: 11-26-2023 Office consultation new/estab patient 30 min Demarco Rebolledo MD Work Phone: [facility] Comment on above: 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[facility]-H[facility]) Start: 11-14-2023 End: 11-14-2023 ambulatory NICK MCCOY Not Available Start: 10-09-2023 End: 10-09-2023 ambulatory CARMITA LARA Not Available Start: 10-06-2023 End: 10-06-2023 ambulatory LEONARDA Cornel FINK Not Available Start: 03-14-2023 End: 03-15-2023 ambulatory LEONARDA DANAE Facility:[facility] Start: 12-09-2022 End: 12-09-2022 Patient encounter procedure Piter KRUSE [facility] Start: 08-16-2022 End: 08-16-2022 Patient encounter procedure Lj Xavier [facility] Start: 05-29-2022 End: 05-29-2022 Lab Drop off Lj Xavier [facility] Start: 05-29-2022 End: 05-29-2022 Patient encounter procedure Ria Scott [facility] Start: 04-19-2022 End: 04-19-2022 Patient encounter procedure Piter KRUSE [facility] Start: 03-26-2022 End: 03-26-2022 Patient encounter procedure Demarco Valentin Jr. [facility] Start: 03-19-2022 End: 03-19-2022 Patient encounter procedure Piter KRUSE [facility] Start: 12-20-2021 End: 12-20-[address] DOCTOR PINA Facility:[facility] Start: 10-30-2021 End: 10-30-2021 ambulatory SVETLANA DIMAS Facility:[facility] Start: 08-08-2017 End: 08-08-2017 Ambulatory MICAELA SALINAS) [facility] Start: 06-20-2017 End: 06-20-2017 Ambulatory ENEDELIA RUVALCABA [facility] Start: 06-05-2017 End: 06-06-2017 [facility] Start: 04-30-2017 Ambulatory MICAELA (SONALI) [facility] Procedures Date Procedure Procedure Detail Performing Clinician [...] for malign ant neoplasm of colon Colonoscopy [facility] Start: 09-30-2027 DTaP,Tdap and Td Vaccines (4 - Td or Tdap) DTaP,Tdap and Td Vaccines (4 - Td or Tdap) [facility] Start: 12-18-2024 Adult BMI Screening Adult BMI Screen ing [facility] Start: 12-18-2024 Tobacco Screening Tobacco Screening [facility] Start: 11-26-2024 Adult BMI Screening Adult BMI Screen ing [facility] Start: 04-22-2024 End: 04-22-2024 Patient encounter procedure 04/22/2024 2:45 PM EDT Office Visit [facility] [place] [address] Anusha Hdez, DO [address] [address] [facility] Start: 03-06-2024 Adult BMI Screening Adult BMI Screen ing [facility] Start: 03-06-2024 Tobacco Screening Tobacco Screening [facility] Start: 12-18-2023 End: 12-18-2023 Patient encounter procedure 12/18/2023 3:00 PM EST Office Visit [facility] [address] Anusha Hedz, DO [address] [address] [facility] Start: 12-16-2023 End: 12-16-2023 Patient encounter procedure 12/16/2023 10:30 AM EST Appointment [facility] - Pulmonary Function [address] [place] [address] Anusha Hdez, DO [address] [address] [facility] - Pulmonary Function Start: 07-25-2023 COVID-19 Vaccine (2022-24 season) COVID-19 Vaccine (2022- season) [facility] Start: 2006 Fall Risk Screening Fall Risk Screen ing [facility] Start: 1959 Adult BMI Follow Up Plan Adult BMI F ollow Up Plan [facility] Start: 1953 Depression Screening Depression Scre ening [facility] Start: 1941 Medicare Annual Well ness Visit Medicare Annual Wellness Visit [facility] End: 12-11-2024 Pulmonary function test Complete PFT w/ BD (Spirometry (Flow Volume Loop) pre/post short acting bronchodilator w/ DLCO (diffusion study) and Lung Volume) Pulmonary function test Complete PFT w/ BD (Spirometry (Flow Volume Loop) pre/post short acting bronchodilator w/ DLCO (diffusion study) and Lung Volume) PFT Routine Interstitial lung disease ([facility]) 1 Occurrences starting 12/11/2023 until 12/11/2024 [employer] Work Phone: Comment on above: 1 Occurrences starti ng 12/11/2023 until 12/11/2024 Immunizations Immunization Date Immunization Notes Care Provider Shahana javier 02-28-2021 SARS-CoV-2 (COVID-19 ) Ad26 vaccine, recombinant Piter KRUSE [facility] 01-04-2021 SARS-CoV-2 (COVID-19 ) Ad26 vaccine, recombinant Piter KRUSE [facility] 10-02-2020 influenza virus vaccine, unspecified formulation Piter KRUSE [facility] 09-30-2017 tetanus toxoid, redu estephanie diphtheria toxoid, and acellular pertussis vaccine, adsorbed Demarco Rebolledo MD Work Phone: [facility] Work Phone: Payers Date Payer Category Payer Unknown [id number] 2020 Unknown [employer]AL [id number] 2020-Present [phone] [address] [place] [address] [id number] 2006 Medicare MEDICARE MEDICAR E PART A & B [id number] 2006-Present [phone] [address] [place] [address] [id number] 1959 Medicare [id number] 1959 Medicare [id number] 1940 Unknown [id number] 1941 Unknown [id number] 1941 Unknown [id number] 1941 Unknown [id number] 1941 Unknown [id number] 1941 Unknown [id number] 1941 Unknown [id number] [id number] 1941 Unknown [id number] 1941 Unknown [id number] 1941 Unknown [id number] Social History Date Type Detail Facility Start: 12-31-2021 End: 10-07-2022 Tobacco smoking status Never smoked tobacco (finding) [facility] Start: 01-04-2021 End: 03-06-2023 Sex Assigned At Male [facility] Start: 10-07-2022 Tobacco use and exposure Smoke less tobacco non-user [facility] Start: 11-26-2023 End: 12-18-2023 Alcohol intake Current non-drinker of alcohol (finding) [facility] Start: 01-04-2021 End: 03-06-2023 History of Social function [facility] Housing Instability Unknown [facility] Start: 1940 Sex Assigned At Not on file P [facility] Functional Status Date Assessment Result Facility 12-08-2023 Functional Status N/A [facility] 12-09-2022 Functional Status N/A [facility] 08-16-2022 Functional Status N/A [facility] Cheri Clinical Notes 03-19-2022 to 12-18-2023 Anusha Hdez, - 12/18/2023 3:00 PM Risa Crum CMA - 11/28/2023 10:48 AM Olesya Rebolledo MD - 11/26/2023 12:15 PM EST Note Date & Type Note Facility 12-18-2023 History of Present illness Narrative Images from the original note were not included. [facility] Pulmonary And Sleep Progress Note Patient - Tomas Reynoso Age - 83 y.o. - 1940 [place] # - [id number] ASSESSMENT 1. Abnormal HRCT with subtle interstitial [...] History: Aneurysm of ascending aorta without rupture ([facility]) Procedure: Multidetector CT thoracic Angiogram performed with [...] acute pulmonary abnormality Dr. Anusha Hdez DO. [facility] Physicians Pulmonary & Critical Care Office: [phone] documented in this encounter [facility] 12-08-2023 Hospital Discharge instructions Patient Education 12/08/2023 [...] including vitamins, herbs, eye drops, creams, and siyg-zre-czgnknc medicines. Any problems you or family members [...] provider tells you to take them. Taking kwny-waz-fvnfijm medicines, vitamins, herbs, and supplements. Tests You [...] Follow these instructions at home: Medicines Take ydvk-myy-vyipjou and prescription medicines only as told by [...] provider. Document Revised: 07/24/2022 Document Reviewed: 06/22/2021 [employer] Patient Education 2022 [employer]. 12/08/2023 16:06:38 Hematuria, Adult Hematuria, Adult Hematuria [...] Follow these instructions at home: Medicines Take bxhw-drp-bgpifzi and prescription medicines only as told by [...] or the blood stops without treatment. Take swmu-gfh-qemtexb and prescription medicines only as told by your health care provider. Drink enough fluid to keep your urine pale yellow. This information is not intended to replace advice given to you by your health care provider. Make sure you discuss any questions you have with your health care provider. Document Revised: 07/11/2021 Document Reviewed: 07/11/2021 [employer] Patient Education 2022 [employer]. Follow Up Care 03/14/2023 09:19:55 With:AIXA MARTIN, Piter Colon, URL Address: [facility] [address] , [place] [phone] When: Unknown Comments:sched cysto [facility] 12-08-2023 Note Urology Cystoscopy Cystoscopy is [...] including vitamins, herbs, eye drops, creams, and lpps-kpo-yfzrumd medicines. ? Any problems you or family [...] tells you to take them. ? Taking gbcf-qoi-mxsroyv medicines, vitamins, herbs, and supplements. Tests You [...] these instructions at home: Medicines ? Take rsao-hhx-pnbpvxb and prescription medicines only as told by [...] the department th (more content not included)... [facility] 11-28-2023 History of Present illness Narrative Per Dr Rebolledo, patient needs an appt with pulmonary [facility] History of Present illness Narrative CV [...] that he has normal EF there was fqxw-er-mievxvjp regurgitation cardiac catheterization shows a 40% and [...] and arrange that. documented in this encounter [facility] 12-09-2022 Hospital Discharge instructions Patient Education 12/09/2022 [...] urethra. Follow these instructions at home: Take jqya-bgn-kswiees and prescription medicines only as told by [...] 11/10/2006 Document Revised: 10/05/2019 Document Reviewed: 12/15/2017 [employer] Patient Education 2020 Dot[employer]. Follow Up Care 07/22/2022 11:43:59 With:AIXA MARTIN, Piter Colon, CHARLY Address: [facility] [address] [place] [address]- When: Unknown [facility] [place] 08-16-2022 Hospital Discharge instructions Patient Education 08/16/2022 14:24:42 Abdominal Pain, Adult, Cheo-jo-Akca Abdominal Pain, Adult Many things can cause belly (abdominal) pain. Most times, belly pain is not dangerous. Many cases of belly pain can be watched and treated at home. Sometimes, though, belly pain is serious. Your doctor will try to find the cause of your belly pain. Follow these instructions at home: Medicines Take tjrx-dmb-fakmnms and prescription medicines only as told by [...] your belly pain for any changes. Take zjyk-pjy-ymzsxvr and prescription medicines only as told by [...] Document Reviewed: 03/20/2020 Elsevier Patient Education 2019 DotAlign. [facility] Cheri 04-19-2022 Hospital Discharge instructions Patient [...] 11/10/2006 Document Revised: 07/30/2019 Document Reviewed: 10/10/2017 [employer] Patient Education 2020 [employer]. 04/19/2022 11:55:17 Benign Prostatic Hyperplasia Benign Prostatic [...] urethra. Follow these instructions at home: Take ptym-mnq-gqizeiz and prescription medicines only as told by [...] 11/10/2006 Document Revised: 10/05/2019 Document Reviewed: 12/15/2017 [employer] Patient Education 2019 [employer]. Follow Up Care 03/26/2022 10:28:19 With:AIXA MARTIN, CHARLY Solis Address: [facility] [address] [place] [address]- [phone] When:07/20/2022 [facility] [place] 03-19-2022 Hospital Discharge instructions Patient [...] instructions: You will go home with a Alm catheter attached to a catheter bag. Follow [...] cotton underwear to absorb moisture and keep sand drier. 6. Keep the drainage bag below the [...] Address: [facility] [address] , [place] [address] Business (1) When:03/26/2022 14:22:49 Comments:for lam removal. [facility] Evaluation + Plan note Future Appointments Appointment Date:03/26/2022 10:30:00 AM Scheduled Provider: Location:[facility] Appointment Type:URO Nurse Visit [facility] Evaluation + Plan note Future Appointments Appointment Date:04/19/2022 10:15:00 AM Scheduled Provider:[facility]iter [facility]USE [facility] Office Visit [facility] Evaluation + Plan note Future Appointments Appointment Date:07/22/2022 10:15:00 AM Scheduled Provider:Piter KRUSE MD [facility] Type:URO Office Visit [facility] Evaluation + Plan note Future Appointments Appointment Date:07/22/2022 10:15:00 AM Scheduled Provider:Piter KRUSE MD Location:[facility] Appointment Type:URO Office Visit Diagnostic Tests PendingUrine Culture 05/29/22 [facility] Evaluation + Plan note Future Appointments Appointment Date:09/18/2022 09:00:00 AM Scheduled Provider:Lj Jay Location:[facility] Appointment Type:URO Office Visit Appointment Date:12/09/2022 10:30:00 AM Scheduled Provider:Piter KRUSE MD [facility] Type:[facility]O Office Visit [facility] Evaluation + Plan note Future Appointments Appointment Date:03/14/2023 08:45:00 AM Scheduled Provider:Piter KRUSE MD [facility] Type:URO Office Visit [facility] Evaluation note Diagnosis Aneurysm of ascending aorta without rupture ([facility]) [facility] Diagnosis SOB (shortness of breath)- Primary Shortness of breath documented in this encounter [facility]* Diagnosis Interstitial lung disease ([facility])- Primary Postinflammatory pulmonary fibrosis [facility]* Diagnosis DURGA (obstructive sleep apnea)- Primary Obstructive sleep apnea (adult) (pediatric) SOB (shortness of breath) Shortness of breath Restrictive pattern present on pulmonary function testing documented in this encounter [facility] Narrative No data available for this section [facility] Discharge instructions No data available for this section [facility] InstructionsNot on filedocumented in this encounter [facility] System[facility]ructionsNot on filedocumented in this encounter [facility] System[facility]ructionsNot on filedocumented in this encounter [facility] System[facility]ructionsNot on filedocumented in this encounter [facility] No data available for this section [facility] reason for referral (narrative)* Consultation (Emergency) - Pending Review Specialty Diagnoses / Procedures Referred By Melissa jung Referred To Contact Pulmonary Medicine Diagnoses SOB (shortness [place] [address] [place] [address] Anusha Hdez, DO [address] [place] [address] Referral ID Status Reason Start Date Expiration Date Visits Requested Visits Authorized [id number] Pending Review Specialty Services Required 11/28/2023 2024 1 1 [facility] for visit Narrative* Consultation (Routine) - Pending Review Specialty Diagnoses / Procedures Referred By Contharshal t Referred To Contact Cardiothoracic Surgery Diagnoses Aneurysm of ascending aorta without rupture ([facility]) Bowen Garay, STERILE PROC TECH-EMPLOYMENT LEGAL ASSISTANT [address] [place] [address] Demarco Rebolledo MD [address] [facility] [address] [place] [address] Referral ID Status Reason Start Date Expiration Date Visits Requested Visits Authorized [id number] Pending Review Specialty Services Required 3 10/20/2024 1 1 [facility] Summary Purpose Family History No [...] section and content) DATE CREATED AUTHOR 05/20/2018 [facility] DATE CREATED AUTHOR AUTHOR'S ORGANIZ ATION 05/20/2018 [facility] DATE CREATED AUTHOR AUTHOR'S ORGANIZ ATION 12/24/2021 [facility] DATE CREATED AUTHOR AUTHOR'S ORGANIZ ATION 12/29/2021 [facility] DATE CREATED AUTHOR AUTHOR'S ORGANIZ ATION 12/06/2022 [facility] Special[facility] DATE CREATED AUTHOR AUTHOR'S ORGANIZ ATION 11/15/2023 [facility] dical Specialists [facility] DATE CREATED AUTHOR AUTHOR'S ORGANIZ ATION 11/30/2023 [facility] DATE CREATED AUTHOR AUTHOR'S ORGANIZ ATION 12/19/2023 [facility] DATE CREATED AUTHOR AUTHOR'S ORGANIZ ATION 12/21/2023 [facility] DATE CREATED AUTHOR AUTHOR'S ORGANIZ ATION 01/01/2024 [facility] DATE CREATED AUTHOR AUTHOR'S ORGANIZ ATION 01/02/2024 Mirtha Spencer s Care Team (unrecognized sect ion and content) Sterile Proc Tech Relationship Specialty Start Date End Date Leonarda Fink DO [address] [place] [address] PCP - General Family Medicine 02/08/21 Sterile Proc Tech Relationship Specialty Start Date End Date Leonarda Fink DO [address] [place] [address] PCP - General Family Medicine 02/08/21 Sterile Proc Tech Relationship Specialty Start Date End Date Leonarda Fink DO [address] [place] [address] PCP - General Family Medicine 02/08/21 Sterile Proc Tech Relationship Specialty Start Date End Date Leonarda Fink DO [address] [place] [address] PCP - General Family Medicine 02/08/21 Reason for Visit (unrecogniz ed section and content) Reason Comments Follow-up Shortness of Breath PFT: 12/16/2022 Specialty Diagnoses / Procedures Referred By Contharshal t Referred To Contact Pulmonary Medicine Diagnoses SOB (shortness of breath) Demarco Rebolledo MD [address] [facility] [address] [place] [address] Anusha Hdez DO [address] [address] Referral ID Status Reason Start Date Expiration Date Visits Requested Visits Authorized [id number] Pending Review Specialty Services Required 11/28/2023 2024 [...] BE BASED ON THE PRIMARY CLINICAL RECORDS. [facility] [employer] [facility]. provides no warranty or guarantee of the accuracy or completeness of information in this document.
== END 2024-01-19 08:29 | disposition home or self-care (01) ==
PROVIDERS: Visit Provider Urology
PROC: (CPT 52000; principal; 2024-01-19 08:00)
DX: N40.1 Benign prostatic hyperplasia with lower urinary tract symptoms (principal); J44.9 Chronic obstructive pulmonary disease, unspecified; N32.81 Overactive bladder; M19.90 Unspecified osteoarthritis, unspecified site; E78.00 Pure hypercholesterolemia, unspecified; E05.90 Thyrotoxicosis, unspecified without thyrotoxic crisis or storm; R31.29 Other microscopic hematuria; N32.89 Other specified disorders of bladder; N52.9 Male erectile dysfunction, unspecified; N41.9 Inflammatory disease of prostate, unspecified; R35.0 Frequency of micturition; R35.1 Nocturia; Z79.899 Other long term (current) drug therapy; R39.14 Feeling of incomplete bladder emptying
CPT/HCPCS: 52000